=== PATIENT | female | born 1965 | race African-American/Black ===

== ENCOUNTER 2018-02-15 05:35 | Inpatient (IN) | payer MEDICARE, MEDICAID ==
[2018-02-15] VITALS (20 sets, daily range): BP systolic 91–118; BP diastolic 26–80
[~2018-02-15] VITALS: Ht 160 cm; Wt 216.4 kg
[2018-02-15] MEDS: Ipratropium 0.02% Inh Soln 2.5ml UD HHN SCH ×3 (06:15→07:03)
[2018-02-15] MEDS: Albuterol ud Inhalation HHN SCH ×6 (06:15→22:11)
[2018-02-15 06:17] LABS: HEMATOCRIT 54.9 % (37.0-47.0); HEMOGLOBIN 16.8 G/DL (12.0-16.0); MEAN CORPUSCULAR VOLUME 88 FL (80-99); PLATELET COUNT 166 K/UL (150-450); RED BLOOD COUNT 6.25 M/UL (4.20-5.40); RED CELL DISTRIBUTION WIDTH 16.2 % (11.6-14.8); WHITE BLOOD COUNT 15.9 K/UL (4.8-10.8)
--- NOTE | 2018-02-15 06:26 | Emergency Room Report ---
History of Present Illness General Chief Complaint: Dyspnea/Respdistress Source: Patient (José Escobar MD) Present Illness HPI 53-year-old female presents to ED for evaluation of shortness of breath. Patient brought in by EMS. Sister called 911 because patient appears short of breath this morning. Patient is morbidly obese. Patient is supposed to be on home oxygen but has not had any oxygen for some time now. All stenosis history of asthma. Denies fevers or chills. Denies chest pain. Per EMS O2 sats were low in the field and patient was placed on nonrebreather. No other aggravating relieving factors. Denies any other associated symptoms (José Escobar MD) HPI I assumed care of this patient from Dr. Escobar. This patient had presented from home with shortness of breath. She is morbidly obese. Apparently, she is on home oxygen and had been out of oxygen. Per the EMS report the patient was hypoxemic and a sleepy. Also, she currently has a history of asthma. There was no report of a recent illness such as fever cough or congestion. The patient had been put on BiPAP at the time of my evaluation. The patient was awake and responsive to my voice, although on BiPAP so unable to fully converse with me. (Pauline Shay DO) Allergies: Coded Allergies: No Known Allergies (Unverified , 11/23/14) Patient History Past Medical History: HTN, asthma Past Surgical History: none Pertinent Family History: none Social History: Denies: smoking, alcohol use, drug use Now: No Immunizations: UTD Reviewed Nursing Documentation: PMH: Agreed; PSxH: Agreed (José Escobar MD) Past Medical History: see triage record, asthma, other - Morbid obesity Reviewed Nursing Documentation: PMH: Agreed; PSxH: Agreed (Pauline Shay DO) Nursing Documentation-PMH Hx Hypertension: Yes Hx Asthma: Yes (José Escobar MD) Review of Systems All Other Systems: negative except mentioned in HPI (José Escobar MD) All Other Systems: limited (Pauline Shay DO) Physical Exam Vital Signs Date Time Temp Pulse Resp B/P (MAP) Pulse Ox O2 Delivery O2 Flow Rate FiO2 02/15/18 05:32 97.6 108 22 102/77 84 Room Air 97.5 Sp02 EP Interpretation: reviewed, normal General Appearance: no apparent distress, alert, GCS 15, non-toxic, obese Head: normocephalic Eyes: bilateral eye normal inspection, bilateral eye PERRL ENT: normal ENT inspection Neck: normal inspection Respiratory: decreased breath sounds Cardiovascular #1: regular rate, rhythm, no edema Gastrointestinal: normal bowel sounds, non tender, soft, non-distended, no guarding, no rebound Rectal: deferred Genitourinary: no CVA tenderness Musculoskeletal: normal inspection Neurologic: alert, oriented x3, responsive, motor strength/tone normal, sensory intact, speech normal Psychiatric: judgement/insight normal, memory normal, mood/affect normal, no suicidal/homicidal ideation Skin: normal inspection Lymphatic: normal inspection (José Escobar MD) Sp02 EP Interpretation: reviewed, normal General Appearance: no apparent distress, alert, GCS 15, non-toxic, obese Head: normocephalic, atraumatic Eyes: bilateral eye normal inspection, bilateral eye PERRL ENT: hearing grossly normal, normal pharynx, no angioedema, normal voice Neck: full range of motion, supple/symm/no masses Respiratory: chest non-tender, lungs clear, normal breath sounds, no respiratory distress, no retraction, no accessory muscle use, speaking full sentences Cardiovascular #1: regular rate, rhythm, no edema Gastrointestinal: normal bowel sounds, non tender, soft, non-distended, no guarding, no rebound Rectal: deferred Musculoskeletal: normal range of motion, non-tender Neurologic: alert, responsive, motor strength/tone normal, sensory intact, speech normal, grossly normal Psychiatric: memory normal, mood/affect normal, no suicidal/homicidal ideation Skin: normal color, no rash, warm/dry, well hydrated (Pauline Shay DO) Medical Decision Making Diagnostic Impression: Primary Impression: Morbid obesity Additional Impressions: Hypercapnia Dyspnea CHF (congestive heart failure) Elevated troponin ER Course This patient presented hypoxemic and hypercapnic. I suspect this patient has underlying obstructive sleep apnea. This untreated sleep apnea probably created a demand ischemia on this patient's heart and she developed congestive heart failure. I am unsure on the patient's history as there were no medical records available or family or other persons available to give me a medical history. The patient initially responded well to BiPAP. However, she became more sleepy. She was maintaining oxygen saturations in the high 90s, however, it was difficult given the patient's obesity to obtain an actual ABG. For concern of the patient's sleepiness and concerned that if she deteriorated, it would be a very difficult airway given her morbid obesity at over 500 pounds. I felt that an emergency airway would be disastrous in this situation and would possibly and in or severe morbidity. Therefore, the patient was intubated in the emergency department by anesthesia with Viral video airway equipment without complication.. Chest x-ray showed cardiomegaly and interstitial fluid. The patient's blood pressure had improved and so I did place an inch of nitro paste on the chest wall of this patient and also diuresed her. A PICC line was placed for central access as a precaution. This patient is critically ill. This patient required complex medical decision- making, aggressive intervention, extensive laboratory workup and monitoring. Critical care time: 40 minutes. Laboratory Tests Test 02/15/18 05:42 02/15/18 05:54 Arterial Blood pH 7.254 (7.350-7.450) Arterial Blood Partial Pressure CO2 77.1 mmHg (35.0-45.0) *H Arterial Blood Partial Pressure O2 39.4 mmHg (75.0-100.0) Arterial Blood HCO3 33.4 mmol/L (22.0-26.0) H Arterial Blood Oxygen Saturation 64.2 % (92.0-98.0) L Arterial Blood Base Excess 3.1 Renny Test Positive White Blood Count 15.9 K/UL (4.8-10.8) H Red Blood Count 6.25 M/UL (4.20-5.40) H Hemoglobin 16.8 G/DL (12.0-16.0) H Hematocrit 54.9 % (37.0-47.0) H Mean Corpuscular Volume 88 FL (80-99) Mean Corpuscular Hemoglobin 26.9 PG (27.0-31.0) L Mean Corpuscular Hemoglobin Concent 30.7 G/DL (32.0-36.0) L Red Cell Distribution Width 16.2 % (11.6-14.8) H Platelet Count 166 K/UL (150-450) Mean Platelet Volume 9.5 FL (6.5-10.1) Neutrophils (%) (Auto) % (45.0-75.0) Lymphocytes (%) (Auto) % (20.0-45.0) Monocytes (%) (Auto) % (1.0-10.0) Eosinophils (%) (Auto) % (0.0-3.0) Basophils (%) (Auto) % (0.0-2.0) Sodium Level 140 MMOL/L (136-145) Potassium Level 4.8 MMOL/L (3.5-5.1) Chloride Level 104 MMOL/L (98-107) Carbon Dioxide Level 30 MMOL/L (21-32) Anion Gap 6 mmol/L (5-15) Blood Urea Nitrogen 35 mg/dL (7-18) H Creatinine 1.3 MG/DL (0.55-1.30) Estimate Glomerular Filtration Rate 51.9 mL/min (>60) Glucose Level 136 MG/DL (74-106) H Lactic Acid Level 1.70 mmol/L (0.4-2.0) Calcium Level 9.5 MG/DL (8.5-10.1) Total Bilirubin 2.4 MG/DL (0.2-1.0) H Direct Bilirubin 0.7 MG/DL (0.0-0.3) H Aspartate Amino Transferase (AST) 19 U/L (15-37) Alanine Aminotransferase (ALT) 15 U/L (12-78) Alkaline Phosphatase 88 U/L (46-116) Total Creatine Kinase 78 U/L (26-308) Creatine Kinase MB 1.8 NG/ML (0.0-3.6) Creatine Kinase MB Relative Index 2.3 Troponin I 0.165 ng/mL (0.000-0.056) Pro-B-Type Natriuretic Peptide 8849 pg/mL (0-125) H Total Protein 8.0 G/DL (6.4-8.2) Albumin 3.1 G/DL (3.4-5.0) L Globulin 4.9 g/dL Albumin/Globulin Ratio 0.6 (1.0-2.7) L (Pauline Shay. ) EKG Diagnostic Results Rate: tachycardiac Rhythm: NSR ST Segments: no acute changes ASA given to the pt in ED: No (José Escobar MD) Rate: tachycardiac Rhythm: other - S.tachycardia ST Segments: no acute changes (Pauline Shay DO) Rhythm Strip Diag. Results EP Interpretation: yes Rhythm: NSR, no PVC's, no ectopy (José Escobar MD) EP Interpretation: yes Rate: 90's Rhythm: NSR, no PVC's, no ectopy (Pauline Shay DO) Last Vital Signs Date Time Temp Pulse Resp B/P (MAP) Pulse Ox O2 Delivery O2 Flow Rate FiO2 02/15/18 05:35 97.5 108 22 102/77 84 Room Air 97.5 (José Escobar MD) Disposition: ADMITTED INPATIENT Condition: Critical Referrals: NON PHYSICIAN (PCP) José Escobar MD Feb 15, 2018 06:26 Pauline Shay DO Feb 15, 2018 07:04
[2018-02-15] MEDS ORDERED: Lidocaine 1% Plain 30 ml INJ ONE (06:30)
[2018-02-15] MEDS ORDERED: Heparin 2000 units/Ns 1000ml INJ ONE (06:30)
[2018-02-15 06:32] LABS: ANION GAP 6 mmol/L (5-15); BLOOD UREA NITROGEN 35 mg/dL (7-18); CALCIUM 9.5 MG/DL (8.5-10.1); CARBON DIOXIDE 30 MMOL/L (21-32); CHLORIDE 104 MMOL/L (98-107); CREATININE 1.3 MG/DL (0.55-1.30); POTASSIUM 4.8 MMOL/L (3.5-5.1); SODIUM 140 MMOL/L (136-145)
[2018-02-15 06:51] LABS: ALANINE AMINOTRANSFERASE 15 U/L (12-78); ALBUMIN 3.1 G/DL (3.4-5.0); ALBUMIN/GLOBULIN RATIO 0.6 (1.0-2.7); ALKALINE PHOSPHATASE 88 U/L (46-116); ASPARTATE AMINO TRANSFERASE 19 U/L (15-37); BILIRUBIN,TOTAL 2.4 MG/DL (0.2-1.0); CKMB 1.8 NG/ML (0.0-3.6); CREATINE KINASE 78 U/L (26-308)
[2018-02-15 06:54] LABS: BILIRUBIN,DIRECT 0.7 MG/DL (0.0-0.3)
[2018-02-15] MEDS ORDERED: Nitroglycerin 2% oint pkt TOPIC ONE (07:15)
[2018-02-15] MEDS ORDERED: Propofol 200mg/20ml IV ONE ×2 (08:55→09:15)
[2018-02-15] MEDS: Dyna-Hex 2% Top Sol 2oz TOPIC SCH (09:40)
--- NOTE | 2018-02-15 10:38 | Diagnostic Imaging Report ---
Indication: Shortness of breath Technique: One view of the chest Comparison: none Findings: Body habitus limits evaluation. The heart is enlarged. There is bilateral pulmonary venous congestion. There may be small bilateral pleural effusions. Impression: Cardiomegaly with mild bilateral pulmonary venous congestion, likely small pleural effusions
--- NOTE | 2018-02-15 10:54 | Diagnostic Imaging Report ---
Indication: Status post intubation Technique: One view of the chest Comparison: 2 hours earlier Findings: Interim endotracheal intubation, endotracheal tube tip projected just above the mary. Increased infiltrate or edema is seen in the left upper lobe. There is increased hazy opacity right lung base, likely pleural fluid and/or consolidation. There is also some atelectasis at the right lung base Impression: Satisfactory endotracheal intubation Increased left upper lobe and right basilar opacities, over 2 hours
--- NOTE | 2018-02-15 11:05 | Diagnostic Imaging Report ---
Indications: Needs long-term IV access Technique: Procedure performed at bedside. Procedural timeout performed. Ultrasound confirms patent compressible right basilic vein. Total sterile technique, including sterile probe cover and sterile gel, sterile gloves, hand hygiene, hat, mask,, sterile gown, large sterile drape, and preparation with 2% chlorhexidine utilized. Local anesthesia with 1% lidocaine. Under real-time ultrasound guidance, puncture basilic vein using 21-gauge needle, passage 0.018 guidewire, exchange for 5 Ukrainian peel-away sheath. 5 Ukrainian Bard dual-lumen power PICC cut to 43 cm. It was inserted through the peel-away sheath. Peel-away sheath and guidewire removed. Catheter fixed to the skin. Both catheter ports aspirated and flushed. Patient tolerated procedure well, without immediate complication. Followup chest x-ray obtained, documents catheter tip position at the cavoatrial junction Impression: Successful bedside placement of right arm PICC under sonographic guidance, as described above.
[2018-02-15 11:29] LABS: APPEARANCE,URINE CLEAR; BILIRUBIN, URINE 1+ (NEGATIVE); COLOR,URINE BROWN; GLUCOSE, URINE (UA) NEGATIVE (NEGATIVE); KETONES,URINE 1+ (NEGATIVE); LEUKOCYTE ESTERASE ,URINE 1+ (NEGATIVE); NITRITE,URINE NEGATIVE (NEGATIVE); PH,URINE 5 (4.5-8.0); PROTEIN,URINE 2+ (NEGATIVE); UROBILINOGEN,URINE 8 MG/DL (0.0-1.0)
[2018-02-15] MEDS ORDERED: UNOBMED (12:05)
[2018-02-15] MEDS ORDERED: Morphine Sulfate 2mg/ml Inj IVP PRN (12:30)
[2018-02-15] MEDS ORDERED: Morphine Sulfate 4mg/ml Inj (IV USE ONLY) IVP PRN ×2 (12:30)
[2018-02-15] MEDS ORDERED: LORazepam Inj 2mg/ml 1ml IV PRN (14:00)
[2018-02-15] MEDS: cefTRIAXone 1gm/D5W 55ml IVPB SCH ×2 (14:00)
--- NOTE | 2018-02-15 14:13 | Cardiology Report ---
APPROVED REPORT EKG Measurement Heart [id number] Sinus tachycardia Nonspecific T wave abnormality Abnormal ECG
--- NOTE | 2018-02-15 14:30 | Cardiology Report ---
APPROVED REPORT EXAM: Two-dimensional and M-mode echocardiogram with Doppler and color Doppler. INDICATION Congestive Heart Failure M-Mode DIMENSIONS IVSd1.3 (0.7-1.1cm)Left Atrium (MM)4.1 (1.6-4.0cm) LVDd4.8 (3.5-5.6cm)Aortic Root3.1 (2.0-3.7cm) PWd1.2 (0.7-1.1cm)Aortic Cusp Exc.2.0 (1.5-2.0cm) IVSs2.4 cm LVDs3.0 (2.5-4.0cm) PWs1.9 cm Technically difficult study due to pts body habitus .poor endocardial and valvular definition Normal left ventricular chamber size, systolic function and wall motion as well visualized Left ventricular ejection fraction estimated to be 55-60 %. No evidence of left ventricular hypertrophy by . No evidence of pericardial effusion. All other cardiac chamber sizes are within normal limits. aortic vavle seem to open but was not well seen Thickened mitral valve leaflets with normal excursion. Mitral annulus and aortic root calcification. Pulmonic valve not well visualized. Normal tricuspid valve structure. IVC at size 2.2 without physiologic collapse, physiological collapse. suggestive of increased RA pressure. A color flow and spectral Doppler study was performed and revealed: No aortic regurgitation. Trace mitral regurgitation. Normal left ventricular diastolic function . Mild tricuspid regurgitation. Tricuspid systolic velocities suggests peak right ventricular systolic pressure of 42mmHg, consistent with mild pulmonary hypertension .
[2018-02-15] MEDS ORDERED: Vancomycin 1 GM in D5W 275 ML IVPB ONE (15:00)
--- NOTE | 2018-02-15 16:15 | Consultation ---
DATE OF CONSULTATION: 02/15/2018 PULMONARY CONSULTATION CONSULTING PHYSICIAN: Kurtis Vazquez M.D. REASON FOR ADMISSION: Respiratory failure. HISTORY OF PRESENT ILLNESS: This is a 53-year-old female, presents to the emergency room for shortness of breath. The patient apparently has been cared for well at home. Her sister called 911 due to respiratory issues. The patient is morbidly obese, poorly ambulatory. The patient denies any fevers or chills. Currently, she has been on BiPAP, still lethargic, but arousable. The patient was initially placed on non-rebreather. The patient noted to be sleepy and arterial blood gases appeared to be poor. The patient also with questionable history of congestive heart failure although unclear at this time. Care discussed and reviewed with the ER physician. The patient is seen in the emergency room. At present, the patient has multitude of medical problems. She has evidence of demand ischemia as well. Arterial blood gases are poor overall, but repeat gases have not yet been done. PAST MEDICAL HISTORY: Notable for hypertension, asthma, sleep apnea, likely obesity hypoventilation. MEDICATIONS: Reviewed. ALLERGIES: Reviewed. SOCIAL HISTORY: The patient lives at home. The patient is poorly ambulatory, unclear as to prior medical care. PHYSICAL EXAMINATION: GENERAL: A well-developed female, but morbidly obese, lethargic. VITAL SIGNS: Blood pressure 124/84, pulse 91, saturations 99 on 80% FiO2, and temperature 97.6. HEENT: Negative. The patient has a facial BiPAP in place NECK: Supple. Neck is obese. LUNGS: With reduced air entry overall. No rhonchi or wheezes. CARDIAC: S1 and S2. Somewhat distant. ABDOMEN: Soft, nontender, obese. EXTREMITIES: No cyanosis or clubbing. There is chronic edema. LABORATORY DATA: Otherwise reviewed. ABG 7.25/77/39/33/64. Chemistries noted, BUN 35, creatinine 1.3. Troponin 0.165. BNP 8849. Hematology notable for white cell count 15.9, hematocrit 54, and platelets 166. IMPRESSION: 1. Acute on chronic respiratory failure. 2. Severe hypoxemic respiratory failure. 3. Leukocytosis. 4. Possible sepsis. 5. Evidence of elevated hemoglobin and hematocrit. 6. Possible secondary polycythemia. 7. Evidence of acute renal failure. 8. Possible demand ischemia. 9. Hypertension. 10. Asthma per history. 11. Possible pulmonary edema. RECOMMENDATIONS: Supportive care. The patient at low threshold to intubate. BiPAP and monitor repeat ABG. Taper FiO2, diurese. Empiric antibiotics. Follow up troponins. Cardiology evaluation. Consider renal evaluation. Monitor laboratories and recommend further and discuss with family as to ongoing care and management. Kurtis Vazquez M.D. DR: ANGIE JOB#: [id number] CC: SANCHO
[2018-02-15] MEDS: Heparin 5000 units/ml inj SUBQ SCH (21:00)
[2018-02-16] VITALS (24 sets, daily range): BP systolic 92–113; BP diastolic 27–79
--- NOTE | 2018-02-16 00:30 | Consultation ---
DATE OF CONSULTATION: 02/15/2018 "NOTE: INCOMPLETE DICTATION." CONSULTING PHYSICIAN: Niko Seymour M.D. REQUESTING PHYSICIAN: Kurtis Vazquez M.D. REASON FOR CONSULT: Respiratory failure with elevated natriuretic peptide and troponin levels. HISTORY OF PRESENT ILLNESS: This is a 53-year-old -[place] female, who lives at home with her sister and requires total care. She presented to the emergency room with shortness of breath that had been progressing for several weeks, but most prominently over the past few days. She initially was placed on BiPAP, but failed to improve and required intubation and now is on mechanical ventilation. Historical data is obtained from her caregiver and sister at bedside. The patient's sister states that for the past several weeks, she has been increasingly becoming short of breath. At baseline, she is totally dependent on care and gets out of bed minimally. She has had cough for the past few days and her oxygen apparently ran out for the past week or so. The patient has not seen her regular doctor for over 6 months due to difficulty getting her out of the house as she is morbidly obese and does not walk. PAST MEDICAL HISTORY: Includes asthma, sleep apnea, hypertension, obesity, hypoventilation, type 2 diabetes mellitus. ALLERGIES: None. MEDICATIONS: Reviewed and reconciled. FAMILY HISTORY: Noncontributory. SOCIAL HISTORY: No history of smoking, alcohol, or substance abuse. REVIEW OF SYSTEMS: Not obtainable from the patient. Pertinent data from her sister is outlined above. PHYSICAL EXAMINATION: VITAL SIGNS: Blood pressure 97/61, pulse 81, respiratory rate 16, temperature 96. Orally intubated. Mechanically ventilated. Morbidly obese. SKIN: With stasis derm changes. LUNGS: Diminished breath sounds. BREASTS: Pendulous breasts. HEART: Regular rhythm and rate. Normal S1, S2. ABDOMEN: Obese and soft. EXTREMITIES: diffuse dependent edema with stasis derm changes of the lower extremities. DIAGNOSTIC DATA: EKG: Sinus tachycardia with NS T-wave abnormalities. Echocardiogram is a limited study that revealed normal ejection fraction and evidence of pulmonary hypertension with PA systolic pressure estimate of 42 mmHg. Chest x-ray reveals left upper lobe and right basilar opacity. Troponin 0.165 and increased to 0.286. ProNPA is 8849. CBC and Chem panel reviewed. IMPRESSION: 1. Acute on chronic respiratory failure. 2. Acute on chronic respiratory acidosis. 3. Acute NSTE myocardial infarction. 4. Secondary polycythemia. 5. Acute on chronic diastolic CHF. 6. Possible sepsis. 7. Morbid obesity. 8. Community acquired and aspiration PNA. 9. NIDDM RECOMMENDATIONS: Niko Seymour M.D. DR: MARVEL JOB#: [id number] CC: SANCHO
[2018-02-16] MEDS: Albuterol ud Inhalation HHN SCH ×6 (03:00→23:27)
[2018-02-16 05:34] LABS: EOSINOPHILS % (AUTO) 0.2 % (0.0-3.0); HEMATOCRIT 48.5 % (37.0-47.0); HEMOGLOBIN 15.2 G/DL (12.0-16.0); LYMPHOCYTES % (AUTO) 10.7 % (20.0-45.0); MEAN CORPUSCULAR VOLUME 85 FL (80-99); MONOCYTES % (AUTO) 7.7 % (1.0-10.0); NEUTROPHILS % (AUTO) 80.5 % (45.0-75.0); PLATELET COUNT 146 K/UL (150-450); RED BLOOD COUNT 5.72 M/UL (4.20-5.40); RED CELL DISTRIBUTION WIDTH 15.9 % (11.6-14.8); WHITE BLOOD COUNT 12.3 K/UL (4.8-10.8)
[2018-02-16 06:12] LABS: ANION GAP 5 mmol/L (5-15); BLOOD UREA NITROGEN 23 mg/dL (7-18); CALCIUM 8.8 MG/DL (8.5-10.1); CARBON DIOXIDE 33 MMOL/L (21-32); CHLORIDE 107 MMOL/L (98-107); CREATININE 0.9 MG/DL (0.55-1.30); POTASSIUM 3.8 MMOL/L (3.5-5.1); SODIUM 145 MMOL/L (136-145)
[2018-02-16 06:17] LABS: CKMB 1.4 NG/ML (0.0-3.6)
[2018-02-16] MEDS: Pantoprazole Inj IVP SCH (08:23)
[2018-02-16] MEDS: Heparin 5000 units/ml inj SUBQ SCH ×2 (08:38→20:47)
[2018-02-16] MEDS: Milk of Magnesia 30ml Ud ORAL PRN (08:48)
--- NOTE | 2018-02-16 09:08 | Diagnostic Imaging Report ---
Indication: Dyspnea Technique: One view of the chest Comparison: 02/15/2018 Findings: Body habitus limits evaluation. Interim nasogastric intubation, tube tip position difficult to assess due to body habitus, probably satisfactory. Satisfactory stable position of endotracheal tube. Stable satisfactory position right arm PICC. Persistent right-sided pleural effusion. The heart is enlarged. Impression: Probably satisfactory interim nasogastric intubation Persistent right-sided pleural effusion Other stable findings as described
[2018-02-16] MEDS: cefTRIAXone 1gm/D5W 55ml IVPB SCH ×2 (13:24)
[2018-02-16] MEDS: Vancomycin 1gm/D5W 275ml IVPB SCH ×4 (14:40→22:16)
[2018-02-16] MEDS: Cefepime HCl 2 GM in D5W 110 ML IVPB SCH (15:58)
--- NOTE | 2018-02-16 17:00 | Consultation ---
DATE OF CONSULTATION: 02/16/2018 INFECTIOUS DISEASES CONSULTATION CONSULTING PHYSICIAN: Jayant Roque M.D. REFERRING PHYSICIAN: Kurtis Vazquez M.D. REASON FOR CONSULTATION: Sepsis. HISTORY OF PRESENTING ILLNESS: This is a 53-year-old lady with history of obesity, hypertension, asthma, and sleep apnea, who came in because she was lethargic. She was placed on a non-rebreather mask and now, she has been intubated and Infectious Diseases consultation has been obtained for positive blood cultures. PAST MEDICAL HISTORY: 1. History of hypertension. 2. Asthma. 3. Sleep apnea. MEDICATIONS: As an inpatient, the patient is on IV vancomycin, Lasix, Protonix, subcutaneous heparin, milk of magnesia, chlorhexidine, albuterol, ceftriaxone, lorazepam, Tylenol, and morphine. ALLERGIES: No known drug allergies. SOCIAL HISTORY: Unknown. FAMILY HISTORY: Unknown. REVIEW OF SYSTEMS: Unable to obtain currently. PHYSICAL EXAMINATION: VITAL SIGNS: Temperature of 98.7 degrees, T-max of 99.1, pulse of 73, respiratory rate of 12, blood pressure 107/63, and O2 saturation of 94%. HEENT: Pupils equally reactive to light and accommodation. The patient is intubated. NECK: Supple. No adenopathy. No JVD. CARDIOVASCULAR: Regular rate and rhythm. No murmurs. LUNGS: Clear to auscultation bilaterally. No crackles. No wheezes. ABDOMEN: Soft and nontender. No organomegaly. EXTREMITIES: No cyanosis. No clubbing. Edema noted bilaterally with hyperpigmentation of both legs and some erythema. Right arm PICC line noted. LABORATORY AND DIAGNOSTIC DATA: White count of 15.9 yesterday, white count of 12.3 today, hemoglobin 15.2, hematocrit 48.5, MCV 85, and platelet count of 146,000 with neutrophils of 80%. Sodium 145, potassium 3.8, chloride 107, bicarb 33, BUN 23, creatinine 0.9, glucose 105, and calcium 8.8. CK-MB 1.4 and on 02/15/2018, AST was 19, ALT was 15, and alkaline phosphatase 88. Total bilirubin 2.4. Direct bilirubin of 0.7. Troponin of 0.15. UA showing 5 to 10 white cells. Blood culture showing gram-positive cocci in clusters. Chest x-ray showing resistant right-sided pleural effusion. A 2D echocardiogram showing thickened mitral valve leaflets, trace mitral regurgitation, and mild tricuspid regurgitation. ASSESSMENT: This is a 53-year-old lady with history of hypertension and asthma, who comes in with lethargicness and is found to have, 1. Gram-positive sepsis. 2. We would like to rule out pneumonia as a possibility. 3. Respiratory failure. 4. Leukocytosis is improving. PLAN: 1. Continue IV vancomycin. 2. Discontinue ceftriaxone. 3. We will start the patient on cefepime. 4. We will order a sputum for Gram stain and culture. 5. We will follow up cultures and adjust antibiotics accordingly. I would like to thank, Dr. Vazquez for this consultation. Jayant Roque M.D. DR: GILMAR JOB#: [id number] CC: Kurtis Vazquez M.D.; Fax#: [phone]
[2018-02-16] MEDS: Dyna-Hex 2% Top Sol 2oz TOPIC SCH (20:45)
--- NOTE | 2018-02-16 22:55 | Pulmonolgy Critical Care Note ---
Critical Care - Asmt/Plan Assessment/Plan: PULMONARY PROGRESS NOTE REASON FOR ADMISSION: Respiratory failure. HISTORY OF PRESENT ILLNESS: This is a 53-year-old female, presents to the emergency room for shortness of breath. The patient apparently has been cared for well at home. Her sister called 911 due to respiratory issues. The patient is morbidly obese, poorly ambulatory. The patient denies any fevers or chills. Currently, she has been on BiPAP, still lethargic, but arousable. The patient was initially placed on non-rebreather. The patient noted to be sleepy and arterial blood gases appeared to be poor. The patient also with questionable history of congestive heart failure although unclear at this time. Care discussed and reviewed with the ER physician. The patient is seen in the emergency room. At present, the patient has multitude of medical problems. She has evidence of demand ischemia as well. Arterial blood gases are poor overall, but repeat gases have not yet been done. Stable overnight, for weaning trails PAST MEDICAL HISTORY: Notable for hypertension, asthma, sleep apnea, likely obesity hypoventilation. MEDICATIONS: Reviewed. ALLERGIES: Reviewed. SOCIAL HISTORY: The patient lives at home. The patient is poorly ambulatory, unclear as to prior medical care. PHYSICAL EXAMINATION: GENERAL: A well-developed female, but morbidly obese, lethargic. VITAL SIGNS: Blood pressure , pulse 91, saturations 99 on 80% FiO2, and temperature 97.6. HEENT: Negative. The patient has a facial BiPAP in place NECK: Supple. Neck is obese. LUNGS: With reduced air entry overall. No rhonchi or wheezes. CARDIAC: S1 and S2. Somewhat distant. ABDOMEN: Soft, nontender, obese. EXTREMITIES: No cyanosis or clubbing. There is chronic edema. LABORATORY DATA: Otherwise reviewed. ABG 7.25/77/39/33/64. Chemistries noted, BUN 35, creatinine 1.3. Troponin 0.165. BNP 8849. Hematology notable for white cell count 15.9, hematocrit 54, and platelets 166. IMPRESSION: 1. Acute on chronic respiratory failure. 2. Severe hypoxemic respiratory failure. 3. Leukocytosis. 4. Possible sepsis. 5. Evidence of elevated hemoglobin and hematocrit. 6. Possible secondary polycythemia. 7. Evidence of acute renal failure. 8. Possible demand ischemia. 9. Hypertension. 10. Asthma per history. 11. Possible pulmonary edema. RECOMMENDATIONS: Supportive care. Wean as tolerated. Taper FiO2, diurese. Empiric antibiotics. Follow up troponins. Cardiology evaluation. Consider renal evaluation. Monitor laboratories and recommend further and discuss with family as to ongoing care and management. Critical Care - Objective Last 24 Hour Vital Signs Date Time Temp Pulse Resp B/P (MAP) Pulse Ox O2 Delivery O2 Flow Rate FiO2 02/16/18 22:00 88 15 92/58 (69) 97 02/16/18 21:18 83 14 40 02/16/18 21:00 84 15 110/64 (79) 96 02/16/18 20:00 40 02/16/18 20:00 89 02/16/18 20:00 Mechanical Ventilator 02/16/18 20:00 98.9 80 16 103/52 (69) 96 98.9 02/16/18 19:03 87 12 96 Mechanical Ventilator 40 02/16/18 19:02 87 12 40 02/16/18 19:00 86 14 111/56 (74) 97 02/16/18 18:50 75 12 98 Mechanical Ventilator 40 02/16/18 18:00 80 14 102/62 (75) 96 02/16/18 17:00 77 14 104/42 (62) 97 02/16/18 17:00 77 12 40 02/16/18 16:00 83 02/16/18 16:00 Mechanical Ventilator 02/16/18 16:00 98.5 75 14 104/45 (64) 98 98.5 02/16/18 16:00 40 02/16/18 15:07 80 12 96 Mechanical Ventilator 40 02/16/18 15:01 85 13 40 02/16/18 15:01 82 13 96 Mechanical Ventilator 40 02/16/18 15:00 85 14 108/59 (75) 97 02/16/18 14:00 73 12 107/63 (78) 94 18 13:20 76 14 40 02/16/18 13:00 80 12 97/79 (85) 94 02/16/18 12:00 Mechanical Ventilator 02/16/18 12:00 75 02/16/18 12:00 71 12 111/64 (80) 93 02/16/18 11:00 73 12 108/60 (76) 93 02/16/18 10:51 80 12 95 Mechanical Ventilator 40 02/16/18 10:45 40 18 10:44 80 12 40 18 10:44 73 12 96 Mechanical Ventilator 40 18 10:00 80 16 104/51 (68) 97 18 09:18 98.7 18 09:00 88 16 106/48 (67) 98 02/16/18 08:55 76 18 40 02/16/18 08:48 98.7 02/16/18 08:00 40 02/16/18 08:00 98.6 82 16 112/71 (85) 98 98.6 02/16/18 08:00 91 02/16/18 08:00 Mechanical Ventilator 02/16/18 07:31 72 16 96 Mechanical Ventilator 40 02/16/18 07:24 72 16 96 Mechanical Ventilator 02/16/18 07:24 72 16 40 02/16/18 07:00 78 14 112/50 (70) 98 02/16/18 06:00 65 14 113/48 (69) 98 02/16/18 05:27 78 16 40 02/16/18 05:00 74 17 105/72 (83) 98 02/16/18 04:00 40 02/16/18 04:00 98.7 81 17 106/63 (77) 98 98.7 02/16/18 04:00 82 02/16/18 04:00 Mechanical Ventilator 02/16/18 03:39 73 16 98 Mechanical Ventilator 40 02/16/18 03:29 71 16 40 02/16/18 03:29 71 16 96 Mechanical Ventilator 40 02/16/18 03:00 75 14 102/76 (85) 99 02/16/18 02:00 85 16 93/56 (68) 95 02/16/18 01:27 84 16 40 02/16/18 01:00 85 20 98/27 (50) 99 02/16/18 00:00 Mechanical Ventilator 02/16/18 00:00 99.1 80 14 103/27 (52) 99 99.1 02/15/18 23:00 67 16 103/31 (55) 99 Micro: Microbiology Date/Time Source Procedure Growth Status 02/15/18 05:54 Blood Blood Culture - Preliminary Resulted 02/15/18 05:50 Blood Blood Culture - Preliminary Resulted Critical Care - Subjective ROS Limited/Unobtainable: Yes Condition: improving FI02: 40 Vent Support Breath Rate: 12 Vent Support Mode: AC Vent Tidal Volume: 550 Sputum Amount: Small PEEP: 0.0 PIP: 30 I&O: Intake and Output 02/15/18 02/16/18 19:00 07:00 Intake Total 200.015 ml 20.003 ml Output Total 440 ml 300 ml Balance -239.985 ml -279.997 ml IV Total 200.015 ml 20.003 ml Output Urine Total 440 ml 300 ml ET-Tube: 7.0 ET Position: 24 Niko Osman MD Feb 16, 2018 22:55
--- NOTE | 2018-02-16 23:30 | Progress Note ---
DATE: 02/16/2018 SUBJECTIVE: The patient remains in the intensive care unit. She is awake and alert. Orally intubated. Mechanically ventilated. OBJECTIVE: VITAL: Blood pressure 103/52, pulse 89, and respirations 16. Afebrile. Obese. LUNGS: Bilateral breath sounds. HEART: Regular rhythm and rate. Normal S1, S2. ABDOMEN: Soft. EXTREMITIES: Dependent edema. LABORATORY DATA: Troponin down to 0.15. BUN 23 and creatinine 0.9. Pro-natriuretic peptide 1697. IMPRESSION: 1. Respiratory failure. 2. Obesity. 3. Hypoventilation. 4. Community-acquired pneumonia. 5. Acute on chronic diastolic congestive heart failure. 6. Respiratory failure. 7. Secondary polycythemia. PLAN: 1. Antimicrobials. 2. Ventilator support. 3. Weaning as able. 4. Diuresis. 5. Replace electrolytes. 6. DVT and stress ulcer prophylaxis. Niko Seymour M.D. DR: FRANCESCO JOB#: [id number] CC:
[2018-02-17] VITALS (24 sets, daily range): BP systolic 78–114; BP diastolic 46–73
[2018-02-17] MEDS: Albuterol ud Inhalation HHN SCH ×6 (03:31→23:25)
[2018-02-17] MEDS: Vancomycin 1gm/D5W 275ml IVPB SCH ×4 (05:38→14:00)
[2018-02-17 06:04] LABS: BASOPHILS % (AUTO) 0.9 % (0.0-2.0); EOSINOPHILS % (AUTO) 1.9 % (0.0-3.0); HEMATOCRIT 42.7 % (37.0-47.0); HEMOGLOBIN 13.2 G/DL (12.0-16.0); LYMPHOCYTES % (AUTO) 15.2 % (20.0-45.0); MEAN CORPUSCULAR VOLUME 85 FL (80-99); MONOCYTES % (AUTO) 7.8 % (1.0-10.0); NEUTROPHILS % (AUTO) 74.2 % (45.0-75.0); PLATELET COUNT 111 K/UL (150-450); RED BLOOD COUNT 5.04 M/UL (4.20-5.40); RED CELL DISTRIBUTION WIDTH 16.6 % (11.6-14.8)
[2018-02-17 06:19] LABS: ALANINE AMINOTRANSFERASE 15 U/L (12-78); ALBUMIN 2.4 G/DL (3.4-5.0); ALBUMIN/GLOBULIN RATIO 0.6 (1.0-2.7); ALKALINE PHOSPHATASE 61 U/L (46-116); ANION GAP 4 mmol/L (5-15); ASPARTATE AMINO TRANSFERASE 18 U/L (15-37); BILIRUBIN,TOTAL 3.6 MG/DL (0.2-1.0); BLOOD UREA NITROGEN 15 mg/dL (7-18); CALCIUM 8.4 MG/DL (8.5-10.1); CARBON DIOXIDE 35 MMOL/L (21-32); CHLORIDE 107 MMOL/L (98-107); CREATININE 0.8 MG/DL (0.55-1.30); POTASSIUM 3.5 MMOL/L (3.5-5.1); SODIUM 146 MMOL/L (136-145)
[2018-02-17 07:03] LABS: BILIRUBIN,DIRECT 0.8 MG/DL (0.0-0.3)
--- NOTE | 2018-02-17 07:58 | General Progress Note ---
Assessment/Plan Problem List: (1) Pneumonia ICD Codes: J18.9 - Pneumonia, unspecified organism SNOMED: 774602711 (2) Pleural effusion ICD Codes: J90 - Pleural effusion, not elsewhere classified SNOMED: 81927615 (3) Morbid obesity ICD Codes: E66.01 - Morbid (severe) obesity due to excess calories SNOMED: 316019064 (4) Leg edema ICD Codes: R60.0 - Localized edema SNOMED: 367500754 (5) Unable to ambulate ICD Codes: R26.2 - Difficulty in walking, not elsewhere classified SNOMED: 870773755 (6) Morbid obesity ICD Codes: E66.01 - Morbid (severe) obesity due to excess calories SNOMED: 515847857 (7) Hypercapnia ICD Codes: R06.89 - Other abnormalities of breathing SNOMED: 58561583 (8) Elevated troponin ICD Codes: R74.8 - Abnormal levels of other serum enzymes SNOMED: 975238047, 929975333, 660171845 (9) Dyspnea ICD Codes: R06.00 - Dyspnea, unspecified SNOMED: 908879881 (10) CHF (congestive heart failure) ICD Codes: I50.9 - Heart failure, unspecified SNOMED: 58528555 (11) Bacteremia ICD Codes: R78.81 - Bacteremia SNOMED: 8620924 Status: stable, progressing Assessment/Plan vent support weaning iv abx diuresis monitor labs and cxr skin/wound care Subjective ROS Limited/Unobtainable: No Constitutional: Reports: no symptoms HEENT: Reports: no symptoms Cardiovascular: Reports: no symptoms Respiratory: Reports: no symptoms Gastrointestinal/Abdominal: Reports: no symptoms Genitourinary: Reports: no symptoms Neurologic/Psychiatric: Reports: no symptoms Endocrine: Reports: no symptoms Hematologic/Lymphatic: Reports: no symptoms Allergies: Coded Allergies: No Known Allergies (Unverified , 11/23/14) All Systems: reviewed and negative except above Subjective remains on the vent. awake and alert. no complaints. hoping to get extubated today. Objective Last 24 Hour Vital Signs Date Time Temp Pulse Resp B/P (MAP) Pulse Ox O2 Delivery O2 Flow Rate FiO2 02/17/18 07:46 83 13 98 Mechanical Ventilator 40 02/17/18 07:44 84 13 40 02/17/18 07:00 81 14 100/55 (70) 99 02/17/18 06:00 83 12 99/61 (74) 99 02/17/18 05:19 83 13 40 02/17/18 05:00 86 14 100/53 (69) 99 02/17/18 04:00 40 02/17/18 04:00 76 02/17/18 04:00 98.6 76 12 97/49 (65) 99 98.6 02/17/18 04:00 Mechanical Ventilator 02/17/18 03:39 91 12 100 Mechanical Ventilator 40 02/17/18 03:36 76 12 98 Mechanical Ventilator 40 02/17/18 03:27 76 13 40 02/17/18 03:00 74 12 98/52 (67) 99 02/17/18 02:00 72 12 100/51 (67) 96 02/17/18 01:39 77 13 40 02/17/18 01:00 76 18 106/53 (70) 99 02/17/18 00:00 98.1 85 16 103/66 (78) 99 98.1 02/17/18 00:00 83 02/17/18 00:00 40 02/17/18 00:00 Mechanical Ventilator 02/16/18 23:35 94 12 96 Mechanical Ventilator 40 02/16/18 23:28 89 12 40 02/16/18 23:28 89 12 98 Mechanical Ventilator 40 02/16/18 23:00 84 14 100/42 (61) 97 18 22:00 88 15 92/58 (69) 97 18 21:18 83 14 40 18 21:00 84 15 110/64 (79) 96 18 20:00 40 18 20:00 89 1918 20:00 Mechanical Ventilator 02/16/18 20:00 98.9 80 16 103/52 (69) 96 98.9 18 19:03 87 12 96 Mechanical Ventilator 40 18 19:02 87 12 40 02/16/18 19:00 86 14 111/56 (74) 97 19/18 18:50 75 12 98 Mechanical Ventilator 40 18 18:00 80 14 102/62 (75) 96 18 17:00 77 14 104/42 (62) 97 19/18 17:00 77 12 40 9/19/18 16:00 83 02/16/18 16:00 Mechanical Ventilator 02/16/18 16:00 98.5 75 14 104/45 (64) 98 98.5 02/16/18 16:00 40 02/16/18 15:07 80 12 96 Mechanical Ventilator 40 02/16/18 15:01 85 13 40 02/16/18 15:01 82 13 96 Mechanical Ventilator 40 02/16/18 15:00 85 14 108/59 (75) 97 02/16/18 14:00 73 12 107/63 (78) 94 02/16/18 13:20 76 14 40 02/16/18 13:00 80 12 97/79 (85) 94 02/16/18 12:00 Mechanical Ventilator 02/16/18 12:00 75 02/16/18 12:00 71 12 111/64 (80) 93 02/16/18 11:00 73 12 108/60 (76) 93 02/16/18 10:51 80 12 95 Mechanical Ventilator 40 02/16/18 10:45 40 02/16/18 10:44 80 12 40 02/16/18 10:44 73 12 96 Mechanical Ventilator 40 02/16/18 10:00 80 16 104/51 (68) 97 02/16/18 09:18 98.7 02/16/18 09:00 88 16 106/48 (67) 98 02/16/18 08:55 76 18 40 02/16/18 08:48 98.7 02/16/18 08:00 40 02/16/18 08:00 98.6 82 16 112/71 (85) 98 98.6 02/16/18 08:00 91 02/16/18 08:00 Mechanical Ventilator Intake and Output 02/16/18 02/17/18 19:00 07:00 Intake Total 582.416 ml Output Total 1565 ml 340 ml Balance -982.584 ml -340 ml Intake Free Water 50 ml IV Total 532.416 ml Output Urine Total 1565 ml 340 ml # Bowel Movements 2 Laboratory Tests 02/16/18 12:00: Troponin I 0.154H 02/16/18 18:02: Troponin I 0.150H 02/17/18 04:00: White Blood Count 10.0, Red Blood Count 5.04, Hemoglobin 13.2, Hematocrit 42.7, Mean Corpuscular Volume 85, Mean Corpuscular Hemoglobin 26.3L, Mean Corpuscular Hemoglobin Concent 31.0L, Red Cell Distribution Width 16.6H, Platelet Count 111L , Mean Platelet Volume 10.5H, Neutrophils (%) (Auto) 74.2, Lymphocytes (%) (Auto ) 15.2L, Monocytes (%) (Auto) 7.8, Eosinophils (%) (Auto) 1.9, Basophils (%) ( Auto) 0.9, Sodium Level 146H, Potassium Level 3.5, Chloride Level 107, Carbon Dioxide Level 35H, Anion Gap 4L, Blood Urea Nitrogen 15, Creatinine 0.8, Estimat Glomerular Filtration Rate > 60, Glucose Level 81, Calcium Level 8.4L, Magnesium Level 1.9, Total Bilirubin 3.6H, Direct Bilirubin 0.8H, Aspartate Amino Transf (AST/SGOT) 18, Alanine Aminotransferase (ALT/SGPT) 15, Alkaline Phosphatase 61, Total Protein 6.1L, Albumin 2.4L, Globulin 3.7, Albumin/ Globulin Ratio 0.6L Height (Feet): 5 Height (Inches): 3.00 Weight (Pounds): 490 General Appearance: WD/WN, alert Neck: supple Cardiovascular: regular rhythm Respiratory/Chest: lungs clear Abdomen: normal bowel sounds, non tender, soft, no organomegaly Edema: moderate edema 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
--- NOTE | 2018-02-17 08:42 | Critical Care Progress Note ---
Assessment/Plan Assessment/Plan 1. Acute on chronic respiratory failure. 2. Severe hypoxemic respiratory failure. 3. Leukocytosis. 4. Possible sepsis. 5. Evidence of elevated hemoglobin and hematocrit. 6. Possible secondary polycythemia. 7. Evidence of acute renal failure. 8. Possible demand ischemia. 9. Hypertension. 10. Asthma per history. 11. Possible pulmonary edema. 12. Bacteremia PLAN keep negative watch lytes wean hope to extubate once off vent, nighttime BIPAP may need trilogy supportive care ID noted cards noted will likely need SNF medications/laboratory data/nursing notes/ICU care reviewed in detail note reviewed and edited care discussed with RN and RT ICU time spent 42 minutes Critical Care - Subjective Interval Events: awake alert on AC no distress Condition: critical EKG Rhythm: Sinus Rhythm I&O: Intake and Output 02/16/18 02/17/18 19:00 07:00 Intake Total 582.416 ml Output Total 1565 ml 340 ml Balance -982.584 ml -340 ml Intake Free Water 50 ml IV Total 532.416 ml Output Urine Total 1565 ml 340 ml # Bowel Movements 2 Critical Care - Objective ET-Tube: 7.0 ET Position: 24 Last 24 Hour Vital Signs Date Time Temp Pulse Resp B/P (MAP) Pulse Ox O2 Delivery O2 Flow Rate FiO2 02/17/18 07:46 83 13 98 Mechanical Ventilator 40 02/17/18 07:44 84 13 40 02/17/18 07:00 81 14 100/55 (70) 99 02/17/18 06:00 83 12 99/61 (74) 99 02/17/18 05:19 83 13 40 02/17/18 05:00 86 14 100/53 (69) 99 02/17/18 04:00 40 02/17/18 04:00 76 02/17/18 04:00 98.6 76 12 97/49 (65) 99 98.6 02/17/18 04:00 Mechanical Ventilator 02/17/18 03:39 91 12 100 Mechanical Ventilator 40 02/17/18 03:36 76 12 98 Mechanical Ventilator 40 02/17/18 03:27 76 13 40 02/17/18 03:00 74 12 98/52 (67) 99 02/17/18 02:00 72 12 100/51 (67) 96 02/17/18 01:39 77 13 40 02/17/18 01:00 76 18 106/53 (70) 99 18 00:00 98.1 85 16 103/66 (78) 99 98.1 02/17/18 00:00 83 18 00:00 40 02/17/18 00:00 Mechanical Ventilator 02/16/18 23:35 94 12 96 Mechanical Ventilator 40 02/16/18 23:28 89 12 40 02/16/18 23:28 89 12 98 Mechanical Ventilator 40 02/16/18 23:00 84 14 100/42 (61) 97 18 22:00 88 15 92/58 (69) 97 18 21:18 83 14 40 18 21:00 84 15 110/64 (79) 96 18 20:00 40 02/16/18 20:00 89 02/16/18 20:00 Mechanical Ventilator 02/16/18 20:00 98.9 80 16 103/52 (69) 96 98.9 02/16/18 19:03 87 12 96 Mechanical Ventilator 40 02/16/18 19:02 87 12 40 02/16/18 19:00 86 14 111/56 (74) 97 18 18:50 75 12 98 Mechanical Ventilator 40 02/16/18 18:00 80 14 102/62 (75) 96 02/16/18 17:00 77 14 104/42 (62) 97 02/16/18 17:00 77 12 40 02/16/18 16:00 83 02/16/18 16:00 Mechanical Ventilator 02/16/18 16:00 98.5 75 14 104/45 (64) 98 98.5 02/16/18 16:00 40 18 15:07 80 12 96 Mechanical Ventilator 40 02/16/18 15:01 85 13 40 18 15:01 82 13 96 Mechanical Ventilator 40 02/16/18 15:00 85 14 108/59 (75) 97 18 14:00 73 12 107/63 (78) 94 18 13:20 76 14 40 18 13:00 80 12 97/79 (85) 94 18 12:00 Mechanical Ventilator 02/16/18 12:00 75 02/16/18 12:00 71 12 111/64 (80) 93 9/19/18 11:00 73 12 108/60 (76) 93 02/16/18 10:51 80 12 95 Mechanical Ventilator 40 02/16/18 10:45 40 02/16/18 10:44 80 12 40 02/16/18 10:44 73 12 96 Mechanical Ventilator 40 02/16/18 10:00 80 16 104/51 (68) 97 02/16/18 09:18 98.7 02/16/18 09:00 88 16 106/48 (67) 98 02/16/18 08:55 76 18 40 02/16/18 08:48 98.7 Labs: Laboratory Tests Test 02/16/18 12:00 02/16/18 18:02 02/17/18 04:00 Troponin I 0.154 ng/mL (0.000-0.056) 0.150 ng/mL (0.000-0.056) White Blood Count 10.0 K/UL (4.8-10.8) Red Blood Count 5.04 M/UL (4.20-5.40) Hemoglobin 13.2 G/DL (12.0-16.0) Hematocrit 42.7 % (37.0-47.0) Mean Corpuscular Volume 85 FL (80-99) Mean Corpuscular Hemoglobin 26.3 PG (27.0-31.0) L Mean Corpuscular Hemoglobin Concent 31.0 G/DL (32.0-36.0) L Red Cell Distribution Width 16.6 % (11.6-14.8) H Platelet Count 111 K/UL (150-450) L Mean Platelet Volume 10.5 FL (6.5-10.1) H Neutrophils (%) (Auto) 74.2 % (45.0-75.0) Lymphocytes (%) (Auto) 15.2 % (20.0-45.0) L Monocytes (%) (Auto) 7.8 % (1.0-10.0) Eosinophils (%) (Auto) 1.9 % (0.0-3.0) Basophils (%) (Auto) 0.9 % (0.0-2.0) Sodium Level 146 MMOL/L (136-145) H Potassium Level 3.5 MMOL/L (3.5-5.1) Chloride Level 107 MMOL/L (98-107) Carbon Dioxide Level 35 MMOL/L (21-32) H Anion Gap 4 mmol/L (5-15) L Blood Urea Nitrogen 15 mg/dL (7-18) Creatinine 0.8 MG/DL (0.55-1.30) Estimat Glomerular Filtration Rate > 60 mL/min (>60) Glucose Level 81 MG/DL (74-106) Calcium Level 8.4 MG/DL (8.5-10.1) L Magnesium Level 1.9 MG/DL (1.8-2.4) Total Bilirubin 3.6 MG/DL (0.2-1.0) H Direct Bilirubin 0.8 MG/DL (0.0-0.3) H Aspartate Amino Transf (AST/SGOT) 18 U/L (15-37) Alanine Aminotransferase (ALT/SGPT) 15 U/L (12-78) Alkaline Phosphatase 61 U/L (46-116) Total Protein 6.1 G/DL (6.4-8.2) L Albumin 2.4 G/DL (3.4-5.0) L Globulin 3.7 g/dL Albumin/Globulin Ratio 0.6 (1.0-2.7) L Objective: WDWN orall intubated morbidly obese reduced breath sounds bilaterally without rhonchi or wheeze [id number] without MRG NABS nontender no distention; obese no CC mild edema nonfocal but weak Micro: Microbiology Date/Time Source Procedure Growth Status 02/15/18 05:54 Blood Blood Culture - Preliminary Staphylococcus Sp Coag Neg Resulted 02/15/18 05:50 Blood Blood Culture - Preliminary Staphylococcus Sp Coag Neg Resulted Kurtis Vazquez MD Feb 17, 2018 08:42
--- NOTE | 2018-02-17 08:45 | History and Physical Report ---
DATE OF ADMISSION: 02/15/2018 CHIEF COMPLAINT: Respiratory failure, morbid obesity, and CHF. HISTORY OF PRESENT ILLNESS: The patient is a 53-year-old female. She has a history of morbid obesity and she was transferred by paramedics with complaints of shortness of breath. On evaluation in the emergency room, she was placed on BiPAP. Her blood gas there showed a pH of 7.25 with a pCO2 of 77. The patient eventually required oral intubation, is now admitted to intensive care unit. She is currently awake and responds to commands and answers questions with gestures. PAST MEDICAL HISTORY: Significant for history of morbid obesity, hypertension, and history of sleep apnea. PAST SURGICAL HISTORY: None. CURRENT MEDICATIONS: Reconciled and reviewed. ALLERGIES: None. FAMILY HISTORY: Unknown. SOCIAL HISTORY: There is no known history of tobacco, ethanol, or drugs. REVIEW OF SYSTEMS: Unobtainable as the patient is currently intubated. PHYSICAL EXAMINATION: VITAL SIGNS: Temperature 98, pulse 74, respirations 14, and blood pressure 100/42. GENERAL: The patient is a well-developed, no apparent distress. She is orally intubated. NECK: Supple. HEART: Regular rate and rhythm. LUNGS: Clear anteriorly. ABDOMEN: Soft, nontender, and nondistended. Obese. EXTREMITIES: Without clubbing or cyanosis. There is 2 to 3+ edema. There were hyperpigmentation changes on the shins. LABORATORY AND DIAGNOSTIC DATA: Laboratories, initial ABG showed pH of 7.25, pCO2 of 77, pO2 of 39, bicarb of 33, and O2 saturation of 64%. Hemoglobin was 16 and hematocrit 54. Sodium 140, potassium 4.8, chloride 104, bicarb 30, BUN 35, and creatinine 1.3. Troponin was 0.165. Total bilirubin of 2.4, the direct of 0.7. Natriuretic peptide level was 8000. Chest x-ray showed cardiomegaly with mild bilateral pulmonary venous congestion. ASSESSMENT: This is a morbidly obese, elderly female admitted with complaints of shortness of breath secondary to CHF exacerbation, cannot rule out pneumonia. She does have an elevated troponin possibly secondary to her hypoxemia. She has a history of asthma. PLAN: Ventilatory support. Respiratory treatments. Diuresis. Empiric antibiotic therapy for possible pneumonia. DVT and stress ulcer prophylaxis. The patient's status is currently critical and guarded. Michael Baez M.D. DR: ARYAN JOB#: [id number] CC:
[2018-02-17] MEDS: Cefepime HCl 2 GM in D5W 110 ML IVPB SCH ×2 (09:55→20:42)
[2018-02-17] MEDS: Pantoprazole Inj IVP SCH (09:55)
[2018-02-17] MEDS: Heparin 5000 units/ml inj SUBQ SCH ×2 (09:56→20:43)
--- NOTE | 2018-02-17 14:24 | Infectious Diseases Prog Note ---
Assessment/Plan Assessment/Plan A; Sepsis Hypercapnic respiratory failure Asthma/COPD morbid obesity PEBBLES Diastolic CHF Positive blood culture, likely contamination P; Continue Cefepime Discontinue Vancomycin Will f/u sputum culture Subjective ROS Limited/Unobtainable: No Respiratory: Reports: productive cough, other - extubated today Cardiovascular: Reports: no symptoms Gastrointestinal/Abdominal: Reports: constipation Genitourinary: Reports: no symptoms Musculoskeletal: Reports: other - bedbound in last 2 weeks Allergies: Coded Allergies: No Known Allergies (Unverified , 11/23/14) Objective Vital Signs Last 24 Hour Vital Signs Date Time Temp Pulse Resp B/P (MAP) Pulse Ox O2 Delivery O2 Flow Rate FiO2 02/17/18 13:00 84 19 100/55 (70) 96 02/17/18 12:00 98.6 82 17 104/73 (83) 93 98.6 02/17/18 12:00 84 02/17/18 12:00 Mechanical Ventilator 02/17/18 12:00 3.0 02/17/18 11:09 86 18 95 Nasal Cannula 3.0 02/17/18 11:00 87 17 114/73 (87) 95 02/17/18 10:00 88 20 78/55 (63) 90 02/17/18 09:00 86 19 101/56 (71) 96 02/17/18 08:39 81 12 40 02/17/18 08:00 87 02/17/18 08:00 40 02/17/18 08:00 99.0 84 16 104/54 (71) 95 99.0 02/17/18 08:00 Mechanical Ventilator 02/17/18 07:56 82 15 100 Mechanical Ventilator 40 02/17/18 07:46 83 13 98 Mechanical Ventilator 40 02/17/18 07:44 84 13 40 02/17/18 07:00 81 14 100/55 (70) 99 02/17/18 06:00 83 12 99/61 (74) 99 02/17/18 05:19 83 13 40 02/17/18 05:00 86 14 100/53 (69) 99 02/17/18 04:00 40 02/17/18 04:00 76 02/17/18 04:00 98.6 76 12 97/49 (65) 99 98.6 02/17/18 04:00 Mechanical Ventilator 9/20/18 03:39 91 12 100 Mechanical Ventilator 40 02/17/18 03:36 76 12 98 Mechanical Ventilator 40 02/17/18 03:27 76 13 40 02/17/18 03:00 74 12 98/52 (67) 99 02/17/18 02:00 72 12 100/51 (67) 96 02/17/18 01:39 77 13 40 18 01:00 76 18 106/53 (70) 99 02/17/18 00:00 98.1 85 16 103/66 (78) 99 98.1 02/17/18 00:00 83 2018 00:00 40 02/17/18 00:00 Mechanical Ventilator 02/16/18 23:35 94 12 96 Mechanical Ventilator 40 02/16/18 23:28 89 12 40 18 23:28 89 12 98 Mechanical Ventilator 40 02/16/18 23:00 84 14 100/42 (61) 97 18 22:00 88 15 92/58 (69) 97 18 21:18 83 14 40 18 21:00 84 15 110/64 (79) 96 18 20:00 40 18 20:00 89 18 20:00 Mechanical Ventilator 02/16/18 20:00 98.9 80 16 103/52 (69) 96 98.9 02/16/18 19:03 87 12 96 Mechanical Ventilator 40 02/16/18 19:02 87 12 40 18 19:00 86 14 111/56 (74) 97 18 18:50 75 12 98 Mechanical Ventilator 40 18 18:00 80 14 102/62 (75) 96 18 17:00 77 14 104/42 (62) 97 19/18 17:00 77 12 40 18 16:00 83 18 16:00 Mechanical Ventilator 18 16:00 98.5 75 14 104/45 (64) 98 98.5 18 16:00 40 18 15:07 80 12 96 Mechanical Ventilator 40 19/18 15:01 85 13 40 02/16/18 15:01 82 13 96 Mechanical Ventilator 40 02/16/18 15:00 85 14 108/59 (75) 97 Height (Feet): 5 Height (Inches): 3.00 Weight (Pounds): 477 General Appearance: other - obese HEENT: mucous membranes moist Respiratory/Chest: expiratory wheezing, other - oxygen by nasal cannula Cardiovascular: normal rate, other - R arm PICC line Abdomen: soft, non tender Extremities: other - non pitting edema of legs Neurologic/Psychiatric: alert, oriented x 3, responsive Microbiology Date/Time Source Procedure Growth Status 02/15/18 05:54 Blood Blood Culture - Preliminary Staphylococcus Sp Coag Neg Resulted 02/15/18 05:50 Blood Blood Culture - Preliminary Staphylococcus Sp Coag Neg Resulted 02/16/18 14:30 Sputum Gram Stain - Final Resulted 02/16/18 14:30 Sputum Sputum Culture Pending Resulted 02/15/18 11:22 Nasal Nares MRSA Culture - Final Staphylococcus Aureus - Mrsa Complete 02/15/18 11:22 Rectum VRE Culture - Final NO VANCOMYCIN RESISTANT ENTEROCOCCUS ... Complete 02/15/18 11:22 Rectum - Final NO CARBAPENEM-RESISTANT ENTEROBACTERI... Complete Laboratory Tests Test 02/16/18 18:02 02/17/18 04:00 02/17/18 09:55 Troponin I 0.150 ng/mL (0.000-0.056) White Blood Count 10.0 K/UL (4.8-10.8) Red Blood Count 5.04 M/UL (4.20-5.40) Hemoglobin 13.2 G/DL (12.0-16.0) Hematocrit 42.7 % (37.0-47.0) Mean Corpuscular Volume 85 FL (80-99) Mean Corpuscular Hemoglobin 26.3 PG (27.0-31.0) L Mean Corpuscular Hemoglobin Concent 31.0 G/DL (32.0-36.0) L Red Cell Distribution Width 16.6 % (11.6-14.8) H Platelet Count 111 K/UL (150-450) L Mean Platelet Volume 10.5 FL (6.5-10.1) H Neutrophils (%) (Auto) 74.2 % (45.0-75.0) Lymphocytes (%) (Auto) 15.2 % (20.0-45.0) L Monocytes (%) (Auto) 7.8 % (1.0-10.0) Eosinophils (%) (Auto) 1.9 % (0.0-3.0) Basophils (%) (Auto) 0.9 % (0.0-2.0) Sodium Level 146 MMOL/L (136-145) H Potassium Level 3.5 MMOL/L (3.5-5.1) Chloride Level 107 MMOL/L (98-107) Carbon Dioxide Level 35 MMOL/L (21-32) H Anion Gap 4 mmol/L (5-15) L Blood Urea Nitrogen 15 mg/dL (7-18) Creatinine 0.8 MG/DL (0.55-1.30) Estimat Glomerular Filtration Rate > 60 mL/min (>60) Glucose Level 81 MG/DL (74-106) Calcium Level 8.4 MG/DL (8.5-10.1) L Magnesium Level 1.9 MG/DL (1.8-2.4) Total Bilirubin 3.6 MG/DL (0.2-1.0) H Direct Bilirubin 0.8 MG/DL (0.0-0.3) H Aspartate Amino Transf (AST/SGOT) 18 U/L (15-37) Alanine Aminotransferase (ALT/SGPT) 15 U/L (12-78) Alkaline Phosphatase 61 U/L (46-116) Total Protein 6.1 G/DL (6.4-8.2) L Albumin 2.4 G/DL (3.4-5.0) L Globulin 3.7 g/dL Albumin/Globulin Ratio 0.6 (1.0-2.7) L Arterial Blood pH 7.370 (7.350-7.450) Arterial Blood Partial Pressure CO2 63.0 mmHg (35.0-45.0) *H Arterial Blood Partial Pressure O2 86.4 mmHg (75.0-100.0) Arterial Blood HCO3 35.8 mmol/L (22.0-26.0) H Arterial Blood Oxygen Saturation 95.6 % (92.0-98.0) Arterial Blood Base Excess 8.1 Renny Test Positive Current Medications Medications (Trade) Dose Ordered Sig/Hermelinda Route PRN Reason Start Time Stop Time Status Last Admin Dose Admin Acetaminophen (Tylenol) 650 mg Q4H PRN ORAL Temp > 100.5 02/15/18 13:30 03/17/18 12:29 02/16/18 08:48 Albuterol Sulfate (Proventil) 2.5 mg Q4HRT HHN 02/15/18 15:00 02/20/18 14:59 02/17/18 11:08 Cefepime HCl 2 gm/ Dextrose 110 ml @ 220 mls/hr EVERY 12 HOURS IVPB 02/16/18 16:00 02/23/18 15:59 02/17/18 09:55 Chlorhexidine Gluconate (Helene-Hex 2%) 1 applic DAILY@2000 TOPIC 02/15/18 20:00 03/17/18 19:59 02/16/18 20:45 Dextrose 500 ml @ 100 mls/hr ONCE ONCE IV 02/17/18 11:45 02/17/18 16:44 02/17/18 13:03 Furosemide (Lasix) 40 mg DAILY IV 02/16/18 09:00 03/18/18 08:59 02/17/18 09:55 Heparin Sodium (Porcine) (Heparin 5000 units/ml) 5,000 units EVERY 12 HOURS SUBQ 02/15/18 21:00 03/17/18 20:59 02/17/18 09:56 Lorazepam (Ativan 2mg/ml 1ml) 2 mg Q2H PRN IV For Anxiety 02/15/18 14:00 02/22/18 13:59 Magnesium Hydroxide (Mom) 30 ml DAILYPRN PRN ORAL Constipation 02/15/18 21:00 03/17/18 20:59 02/16/18 08:48 Morphine Sulfate (Morphine Sulfate) 2 mg Q3H PRN IVP for mild pain (1-3) 02/15/18 12:30 02/22/18 12:29 Morphine Sulfate (Morphine Sulfate) 4 mg Q3H PRN IVP For moderate pain (4-6) 02/15/18 12:30 02/22/18 12:29 Morphine Sulfate (Morphine Sulfate) 6 mg Q3H PRN IVP for severe pain (7-10) 02/15/18 12:30 02/22/18 12:29 Pantoprazole (Protonix) 40 mg DAILY IVP 02/16/18 09:00 03/18/18 08:59 02/17/18 09:55 Vancomycin HCl (Vanco rx to dose) 1 ea DAILY PRN MISC Per rx protocol 02/16/18 12:45 03/18/18 12:44 Vancomycin HCl 1 gm/Dextrose 275 ml @ 183.708 mls/hr Q8HR IVPB 02/16/18 14:00 02/21/18 13:59 02/17/18 05:38 Rj Sands MD Feb 17, 2018 14:23
--- NOTE | 2018-02-17 16:30 | Progress Note ---
DATE: 02/17/2018 CARDIOLOGY PROGRESS NOTE SUBJECTIVE: The patient remains in the intensive care unit. Orally intubated. Mechanically ventilated. On weaning trials. She is alert and has no distress at this time. OBJECTIVE: VITAL SIGNS: Blood pressure 100/55, pulse 81, and respirations 14. GENERAL: Morbidly obese. LUNGS: Bilateral breath sounds. HEART: Regular rhythm and rate. Normal S1 and S2. ABDOMEN: Obese and doughy, but soft. EXTREMITIES: There is trace dependent edema with stasis derm changes. LABORATORY DATA: White count 10 and hemoglobin 13. ABG, pH 7.37, pCO2 63, and pO2 86. Sodium 146, potassium 3.5, BUN 15, and creatinine 0.8. Albumin 2.4. IMPRESSION: 1. Pneumonia. 2. Respiratory failure. 3. Acute and chronic respiratory acidosis. 4. Obesity. 5. Hypoventilation. 6. Acute on chronic diastolic congestive heart failure. 7. Dehydration and hypernatremia post diuresis. PLAN: 1. Free water replacement. 2. Cautious diuresis post extubation. 3. Respiratory hygiene. 4. Weaning efforts. 5. DVT prophylaxis. 6. Maintain therapeutic potassium levels. 7. Antimicrobials. Niko Seymour M.D. DR: FRANCESCO JOB#: [id number] CC:
--- NOTE | 2018-02-17 18:56 | Cardiology Report ---
APPROVED REPORT EKG Measurement Heart [id number] Normal sinus rhythm T wave abnormality, consider anterolateral ischemia Prolonged QT Abnormal ECG
[2018-02-17] MEDS: Dyna-Hex 2% Top Sol 2oz TOPIC SCH (19:49)
[2018-02-18] VITALS (15 sets, daily range): BP systolic 66–115; BP diastolic 49–70
[2018-02-18] MEDS: Milk of Magnesia 30ml Ud ORAL PRN (03:02)
[2018-02-18] MEDS: Albuterol ud Inhalation HHN SCH ×6 (03:12→23:12)
[2018-02-18 04:39] LABS: HEMATOCRIT 42.4 % (37.0-47.0); HEMOGLOBIN 13.2 G/DL (12.0-16.0); MEAN CORPUSCULAR VOLUME 85 FL (80-99); PLATELET COUNT 93 K/UL (150-450); RED BLOOD COUNT 4.99 M/UL (4.20-5.40); RED CELL DISTRIBUTION WIDTH 16.6 % (11.6-14.8)
[2018-02-18 05:09] LABS: ALANINE AMINOTRANSFERASE 16 U/L (12-78); ALBUMIN 2.4 G/DL (3.4-5.0); ALBUMIN/GLOBULIN RATIO 0.6 (1.0-2.7); ALKALINE PHOSPHATASE 58 U/L (46-116); ANION GAP 2 mmol/L (5-15); ASPARTATE AMINO TRANSFERASE 18 U/L (15-37); BILIRUBIN,TOTAL 3.7 MG/DL (0.2-1.0); BLOOD UREA NITROGEN 12 mg/dL (7-18); CALCIUM 8.1 MG/DL (8.5-10.1); CARBON DIOXIDE 40 MMOL/L (21-32); CHLORIDE 104 MMOL/L (98-107); CREATININE 0.7 MG/DL (0.55-1.30); POTASSIUM 3.4 MMOL/L (3.5-5.1); SODIUM 146 MMOL/L (136-145)
[2018-02-18 05:11] LABS: BILIRUBIN,DIRECT 0.9 MG/DL (0.0-0.3)
[2018-02-18] MEDS: Pantoprazole Inj IVP SCH (08:19)
[2018-02-18] MEDS: Cefepime HCl 2 GM in D5W 110 ML IVPB SCH (08:19)
--- NOTE | 2018-02-18 08:32 | Critical Care Progress Note ---
Assessment/Plan Assessment/Plan 1. Acute on chronic respiratory failure. 2. Severe hypoxemic respiratory failure. 3. Leukocytosis. 4. Possible sepsis. 5. Evidence of elevated hemoglobin and hematocrit. 6. Possible secondary polycythemia. 7. Evidence of acute renal failure. 8. Possible demand ischemia. 9. Hypertension. 10. Asthma per history. 11. Possible pulmonary edema. 12. Bacteremia PLAN keep negative watch lytes extubated patient a good candidate for trilogy with respiratory failure PRn and nighttime BIPAP may need trilogy supportive care ID noted cards noted wants to go home on dc medications/laboratory data/nursing notes/ICU care reviewed in detail note reviewed and edited care discussed with RN and RT ICU time spent 40 minutes Critical Care - Subjective Interval Events: awake refusing bipap Condition: improving I&O: Intake and Output 02/17/18 02/18/18 19:00 07:00 Intake Total 140 ml 110 ml Output Total 1455 ml 630 ml Balance -1315 ml -520 ml IV Total 110 ml 110 ml Other 30 ml Output Urine Total 1455 ml 630 ml Critical Care - Objective ET-Tube: 7.0 ET Position: 24 Last 24 Hour Vital Signs Date Time Temp Pulse Resp B/P (MAP) Pulse Ox O2 Delivery O2 Flow Rate FiO2 02/18/18 07:00 98.7 82 17 100/50 (67) 98 98.7 02/18/18 06:00 81 17 102/53 (69) 98 02/18/18 05:00 84 17 108/53 (71) 98 02/18/18 04:00 80 02/18/18 04:00 3.0 02/18/18 04:00 Nasal Cannula 3.0 02/18/18 04:00 82 17 102/49 (66) 98 02/18/18 03:22 80 20 98 Nasal Cannula 3.0 32 02/18/18 03:12 82 19 97 Nasal Cannula 3.0 32 02/18/18 03:00 82 17 101/50 (67) 98 02/18/18 02:00 80 17 100/53 (69) 98 02/18/18 01:00 98.8 85 16 100/50 (67) 96 98.8 02/18/18 00:00 Nasal Cannula 3.0 02/18/18 00:00 85 16 99/50 (66) 96 02/17/18 23:35 92 21 99 Nasal Cannula 3.0 32 02/17/18 23:25 88 18 97 Nasal Cannula 3.0 32 02/17/18 23:00 83 16 102/51 (68) 97 02/17/18 22:00 83 16 98/50 (66) 96 02/17/18 21:00 84 16 99/49 (66) 96 02/17/18 20:00 Nasal Cannula 3.0 02/17/18 20:00 85 02/17/18 20:00 98.9 83 16 108/58 (75) 95 98.9 02/17/18 20:00 3.0 02/17/18 19:26 84 18 98 Nasal Cannula 3.0 32 02/17/18 19:16 Nasal Cannula 3.0 32 02/17/18 19:16 79 15 96 Nasal Cannula 3.0 32 02/17/18 19:16 96 Nasal Cannula 3.0 32 02/17/18 19:00 83 16 98/46 (63) 95 02/17/18 18:00 78 14 98/48 (65) 96 02/17/18 17:00 84 17 101/52 (68) 96 02/17/18 16:00 3.0 02/17/18 16:00 Nasal Cannula 3.0 02/17/18 16:00 99.2 81 14 99/46 (63) 97 99.2 02/17/18 16:00 83 02/17/18 15:15 Nasal Cannula 02/17/18 15:14 Nasal Cannula 02/17/18 15:00 85 16 100/55 (70) 99 02/17/18 14:00 83 18 92/51 (65) 97 02/17/18 13:00 84 19 100/55 (70) 96 02/17/18 12:00 98.6 82 17 104/73 (83) 93 98.6 02/17/18 12:00 84 02/17/18 12:00 Nasal Cannula 3.0 02/17/18 12:00 3.0 02/17/18 11:21 Nasal Cannula 3.0 02/17/18 11:20 95 Nasal Cannula 3.0 02/17/18 11:19 88 16 95 Nasal Cannula 3.0 02/17/18 11:09 86 18 95 Nasal Cannula 3.0 02/17/18 11:00 87 17 114/73 (87) 95 02/17/18 10:00 88 20 78/55 (63) 90 02/17/18 09:00 86 19 101/56 (71) 96 02/17/18 08:46 Nasal Cannula 2.0 02/17/18 08:45 98 02/17/18 08:39 81 12 40 Labs: Laboratory Tests Test 02/17/18 09:55 02/17/18 14:05 02/18/18 04:00 02/18/18 07:40 Arterial Blood pH 7.370 (7.350-7.450) 7.300 (7.350-7.450) Arterial Blood Partial Pressure CO2 63.0 mmHg (35.0-45.0) *H 85.5 mmHg (35.0-45.0) *H Arterial Blood Partial Pressure O2 86.4 mmHg (75.0-100.0) 85.3 mmHg (75.0-100.0) Arterial Blood HCO3 35.8 mmol/L (22.0-26.0) H 41.1 mmol/L (22.0-26.0) H Arterial Blood Oxygen Saturation 95.6 % (92.0-98.0) 95.4 % (92.0-98.0) Arterial Blood Base Excess 8.1 11.0 Renny Test Positive Positive Vancomycin Level Trough 19.3 ug/mL (5.0-12.0) H White Blood Count 10.0 K/UL (4.8-10.8) Red Blood Count 4.99 M/UL (4.20-5.40) Hemoglobin 13.2 G/DL (12.0-16.0) Hematocrit 42.4 % (37.0-47.0) Mean Corpuscular Volume 85 FL (80-99) Mean Corpuscular Hemoglobin 26.4 PG (27.0-31.0) L Mean Corpuscular Hemoglobin Concent 31.1 G/DL (32.0-36.0) L Red Cell Distribution Width 16.6 % (11.6-14.8) H Platelet Count 93 K/UL (150-450) L Mean Platelet Volume 10.1 FL (6.5-10.1) Neutrophils (%) (Auto) % (45.0-75.0) Lymphocytes (%) (Auto) % (20.0-45.0) Monocytes (%) (Auto) % (1.0-10.0) Eosinophils (%) (Auto) % (0.0-3.0) Basophils (%) (Auto) % (0.0-2.0) Neutrophils % (Manual) Pending Lymphocytes % (Manual) Pending Platelet Estimate Pending Platelet Morphology Pending Sodium Level 146 MMOL/L (136-145) H Potassium Level 3.4 MMOL/L (3.5-5.1) L Chloride Level 104 MMOL/L (98-107) Carbon Dioxide Level 40 MMOL/L (21-32) H Anion Gap 2 mmol/L (5-15) L Blood Urea Nitrogen 12 mg/dL (7-18) Creatinine 0.7 MG/DL (0.55-1.30) Estimat Glomerular Filtration Rate > 60 mL/min (>60) Glucose Level 96 MG/DL (74-106) Calcium Level 8.1 MG/DL (8.5-10.1) L Magnesium Level 1.8 MG/DL (1.8-2.4) Total Bilirubin 3.7 MG/DL (0.2-1.0) H Direct Bilirubin 0.9 MG/DL (0.0-0.3) H Aspartate Amino Transf (AST/SGOT) 18 U/L (15-37) Alanine Aminotransferase (ALT/SGPT) 16 U/L (12-78) Alkaline Phosphatase 58 U/L (46-116) Pro-B-Type Natriuretic Peptide 504 pg/mL (0-125) H Total Protein 6.3 G/DL (6.4-8.2) L Albumin 2.4 G/DL (3.4-5.0) L Globulin 3.9 g/dL Albumin/Globulin Ratio 0.6 (1.0-2.7) L Objective: WDWN on oxygen and alert morbidly obese reduced breath sounds bilaterally without rhonchi or wheeze D2H5ISM without MRG NABS nontender no distention; obese no CC chronic skin changes and edema nonfocal but weak Micro: Microbiology Date/Time Source Procedure Growth Status 02/16/18 14:30 Sputum Gram Stain - Final Resulted 02/16/18 14:30 Sputum Culture - Preliminary Staphylococcus Aureus Resulted 02/15/18 11:22 Nasal Nares MRSA Culture - Final Staphylococcus Aureus - Mrsa Complete 02/15/18 11:22 Rectum VRE Culture - Final NO VANCOMYCIN RESISTANT ENTEROCOCCUS ... Complete 02/15/18 11:22 Rectum - Final NO CARBAPENEM-RESISTANT ENTEROBACTERI... Complete Kurtis Vazquez MD Feb 18, 2018 08:32
[2018-02-18] MEDS ORDERED: LORazepam Inj 2mg/ml 1ml IV PRN (10:00)
--- NOTE | 2018-02-18 10:56 | Infectious Diseases Prog Note ---
"Assessment/Plan Assessment/Plan antibiotics : cefepime A 1. staph aureus pneumonia 2. respiratory failure 3. blood cultures with coag neg staph | diphtheroids likely contaminated 4. MRSA nasal colonization 5. hypertension 6. obesity P 1. d/c cefepime 2. start iv vancomycin 3. will follow up cultures Subjective ROS Limited/Unobtainable: Yes Allergies: Coded Allergies: No Known Allergies (Unverified , 11/23/14) Objective Vital Signs Last 24 Hour Vital Signs Date Time Temp Pulse Resp B/P (MAP) Pulse Ox O2 Delivery O2 Flow Rate FiO2 02/18/18 09:33 99.0 80 17 114/62 (79) 96 99.0 02/18/18 09:00 88 17 114/62 (79) 96 02/18/18 08:00 Nasal Cannula 3.0 02/18/18 08:00 40 02/18/18 08:00 84 02/18/18 07:00 98.7 82 17 100/50 (67) 98 98.7 02/18/18 06:00 81 17 102/53 (69) 98 02/18/18 05:00 84 17 108/53 (71) 98 02/18/18 04:00 80 02/18/18 04:00 3.0 02/18/18 04:00 Nasal Cannula 3.0 02/18/18 04:00 82 17 102/49 (66) 98 02/18/18 03:22 80 20 98 Nasal Cannula 3.0 32 02/18/18 03:12 82 19 97 Nasal Cannula 3.0 32 02/18/18 03:00 82 17 101/50 (67) 98 02/18/18 02:00 80 17 100/53 (69) 98 02/18/18 01:00 98.8 85 16 100/50 (67) 96 98.8 02/18/18 00:00 Nasal Cannula 3.0 02/18/18 00:00 85 16 99/50 (66) 96 02/17/18 23:35 92 21 99 Nasal Cannula 3.0 32 02/17/18 23:25 88 18 97 Nasal Cannula 3.0 32 02/17/18 23:00 83 16 102/51 (68) 97 02/17/18 22:00 83 16 98/50 (66) 96 02/17/18 21:00 84 16 99/49 (66) 96 9/20/18 20:00 Nasal Cannula 3.0 02/17/18 20:00 85 02/17/18 20:00 98.9 83 16 108/58 (75) 95 98.9 02/17/18 20:00 3.0 02/17/18 19:26 84 18 98 Nasal Cannula 3.0 32 02/17/18 19:16 Nasal Cannula 3.0 32 02/17/18 19:16 79 15 96 Nasal Cannula 3.0 32 02/17/18 19:16 96 Nasal Cannula 3.0 32 02/17/18 19:00 83 16 98/46 (63) 95 02/17/18 18:00 78 14 98/48 (65) 96 02/17/18 17:00 84 17 101/52 (68) 96 02/17/18 16:00 3.0 02/17/18 16:00 Nasal Cannula 3.0 02/17/18 16:00 99.2 81 14 99/46 (63) 97 99.2 02/17/18 16:00 83 02/17/18 15:15 Nasal Cannula 02/17/18 15:14 Nasal Cannula 02/17/18 15:00 85 16 100/55 (70) 99 02/17/18 14:00 83 18 92/51 (65) 97 02/17/18 13:00 84 19 100/55 (70) 96 02/17/18 12:00 98.6 82 17 104/73 (83) 93 98.6 02/17/18 12:00 84 02/17/18 12:00 Nasal Cannula 3.0 02/17/18 12:00 3.0 02/17/18 11:21 Nasal Cannula 3.0 02/17/18 11:20 95 Nasal Cannula 3.0 02/17/18 11:19 88 16 95 Nasal Cannula 3.0 02/17/18 11:09 86 18 95 Nasal Cannula 3.0 02/17/18 11:00 87 17 114/73 (87) 95 Height (Feet): 5 Height (Inches): 3.00 Weight (Pounds): 477 HEENT: other - on bipap Respiratory/Chest: lungs clear Cardiovascular: normal rate, regular rhythm, no gallop/murmur Abdomen: soft, non tender Extremities: other - + edema, right arm PICC Microbiology Date/Time Source Procedure Growth Status 02/16/18 14:30 Sputum Gram Stain - Final Resulted 02/16/18 14:30 Sputum Culture - Preliminary Staphylococcus Aureus Resulted 02/15/18 11:22 Nasal Nares MRSA Culture - Final Staphylococcus Aureus - Mrsa Complete 02/15/18 11:22 Rectum VRE Culture - Final NO VANCOMYCIN RESISTANT ENTEROCOCCUS ... Complete 02/15/18 11:22 Rectum - Final NO CARBAPENEM-RESISTANT ENTEROBACTERI... Complete Laboratory Tests Test 02/17/18 14:05 02/18/18 04:00 02/18/18 07:40 Vancomycin Level Trough 19.3 ug/mL (5.0-12.0) H White Blood Count 10.0 K/UL (4.8-10.8) Red Blood Count 4.99 M/UL (4.20-5.40) Hemoglobin 13.2 G/DL (12.0-16.0) Hematocrit 42.4 % (37.0-47.0) Mean Corpuscular Volume 85 FL (80-99) Mean Corpuscular Hemoglobin 26.4 PG (27.0-31.0) L Mean Corpuscular Hemoglobin Concent 31.1 G/DL (32.0-36.0) L Red Cell Distribution Width 16.6 % (11.6-14.8) H Platelet Count 93 K/UL (150-450) L Mean Platelet Volume 10.1 FL (6.5-10.1) Neutrophils (%) (Auto) % (45.0-75.0) Lymphocytes (%) (Auto) % (20.0-45.0) Monocytes (%) (Auto) % (1.0-10.0) Eosinophils (%) (Auto) % (0.0-3.0) Basophils (%) (Auto) % (0.0-2.0) Differential Total Cells Counted 100 Neutrophils % (Manual) 80 % (45-75) H Lymphocytes % (Manual) 14 % (20-45) L Monocytes % (Manual) 6 % (1-10) Eosinophils % (Manual) 0 % (0-3) Basophils % (Manual) 0 % (0-2) Band Neutrophils 0 % (0-8) Platelet Estimate Decreased L Platelet Morphology Normal Hypochromasia 1+ Anisocytosis 1+ Sodium Level 146 MMOL/L (136-145) H Potassium Level 3.4 MMOL/L (3.5-5.1) L Chloride Level 104 MMOL/L (98-107) Carbon Dioxide Level 40 MMOL/L (21-32) H Anion Gap 2 mmol/L (5-15) L Blood Urea Nitrogen 12 mg/dL (7-18) Creatinine 0.7 MG/DL (0.55-1.30) Estimat Glomerular Filtration Rate > 60 mL/min (>60) Glucose Level 96 MG/DL (74-106) Calcium Level 8.1 MG/DL (8.5-10.1) L Magnesium Level 1.8 MG/DL (1.8-2.4) Total Bilirubin 3.7 MG/DL (0.2-1.0) H Direct Bilirubin 0.9 MG/DL (0.0-0.3) H Aspartate Amino Transf (AST/SGOT) 18 U/L (15-37) Alanine Aminotransferase (ALT/SGPT) 16 U/L (12-78) Alkaline Phosphatase 58 U/L (46-116) Pro-B-Type Natriuretic Peptide 504 pg/mL (0-125) H Total Protein 6.3 G/DL (6.4-8.2) L Albumin 2.4 G/DL (3.4-5.0) L Globulin 3.9 g/dL Albumin/Globulin Ratio 0.6 (1.0-2.7) L Arterial Blood pH 7.300 (7.350-7.450) Arterial Blood Partial Pressure CO2 85.5 mmHg (35.0-45.0) *H Arterial Blood Partial Pressure O2 85.3 mmHg (75.0-100.0) Arterial Blood HCO3 41.1 mmol/L (22.0-26.0) H Arterial Blood Oxygen Saturation 95.4 % (92.0-98.0) Arterial Blood Base Excess 11.0 Renny Test Positive Current Medications Medications (Trade) Dose Ordered Sig/Hermelinda Route PRN Reason Start Time Stop Time Status Last Admin Dose Admin Acetaminophen (Tylenol) 650 mg Q4H PRN ORAL Temp > 100.5 02/18/18 11:00 03/17/18 10:59 Albuterol Sulfate (Proventil) 2.5 mg Q4HRT HHN 02/18/18 11:00 02/20/18 14:59 Cefepime HCl 2 gm/ Dextrose 110 ml @ 220 mls/hr EVERY 12 HOURS IVPB 02/18/18 21:00 02/23/18 15:59 Chlorhexidine Gluconate (Helene-Hex 2%) 1 applic DAILY@2000 TOPIC 02/18/18 20:00 03/17/18 19:59 Clotrimazole (Lotrimin) 1 applic EVERY 12 HOURS TOPIC 02/18/18 21:00 03/20/18 20:59 Furosemide (Lasix) 40 mg DAILY IV 02/19/18 09:00 03/18/18 08:59 Heparin Sodium (Porcine) (Heparin 5000 units/ml) 5,000 units EVERY 12 HOURS SUBQ 02/18/18 21:00 03/17/18 20:59 Lorazepam (Ativan 2mg/ml 1ml) 2 mg Q2H PRN IV For Anxiety 02/18/18 10:00 02/22/18 13:59 Magnesium Hydroxide (Mom) 30 ml DAILYPRN PRN ORAL Constipation 02/18/18 11:00 03/17/18 10:59 Morphine Sulfate (Morphine Sulfate) 2 mg Q3H PRN IVP for mild pain (1-3) 02/18/18 11:00 02/22/18 10:59 Morphine Sulfate (Morphine Sulfate) 4 mg Q3H PRN IVP For moderate pain (4-6) 02/18/18 11:00 02/22/18 10:59 Morphine Sulfate (Morphine Sulfate) 6 mg Q3H PRN IVP for severe pain (7-10) 02/18/18 12:30 02/22/18 12:29 NAJMA CEJA Feb 18, 2018 10:56"
[2018-02-18] MEDS ORDERED: Morphine Sulfate 2mg/ml Inj IVP PRN (11:00)
[2018-02-18] MEDS ORDERED: Morphine Sulfate 4mg/ml Inj (IV USE ONLY) IVP PRN (11:00)
[2018-02-18] MEDS ORDERED: Milk of Magnesia 30ml Ud ORAL PRN (11:00)
[2018-02-18] MEDS ORDERED: Morphine Sulfate 10mg/ml Inj IVP PRN (12:30)
[2018-02-18] MEDS: Vancomycin 1gm/D5W 275ml IVPB SCH ×4 (13:25→21:48)
--- NOTE | 2018-02-18 15:38 | General Progress Note ---
Assessment/Plan Problem List: (1) Pneumonia ICD Codes: J18.9 - Pneumonia, unspecified organism SNOMED: 752160108 (2) Pleural effusion ICD Codes: J90 - Pleural effusion, not elsewhere classified SNOMED: 69953542 (3) Morbid obesity ICD Codes: E66.01 - Morbid (severe) obesity due to excess calories SNOMED: 722952696 (4) Leg edema ICD Codes: R60.0 - Localized edema SNOMED: 266995455 (5) Unable to ambulate ICD Codes: R26.2 - Difficulty in walking, not elsewhere classified SNOMED: 432038761 (6) Morbid obesity ICD Codes: E66.01 - Morbid (severe) obesity due to excess calories SNOMED: 662733387 (7) Hypercapnia ICD Codes: R06.89 - Other abnormalities of breathing SNOMED: 05709678 (8) Elevated troponin ICD Codes: R74.8 - Abnormal levels of other serum enzymes SNOMED: 814546282, 560612482, 382061436 (9) Dyspnea ICD Codes: R06.00 - Dyspnea, unspecified SNOMED: 112601973 (10) CHF (congestive heart failure) ICD Codes: I50.9 - Heart failure, unspecified SNOMED: 33879385 (11) Bacteremia ICD Codes: R78.81 - Bacteremia SNOMED: 2547142 Status: stable, progressing Assessment/Plan monitor abg bipap as needed and qhs resp rx iv abx diuresis monitor labs and cxr skin/wound care pt/ot Subjective Time patient seen: 06:00 ROS Limited/Unobtainable: No Constitutional: Reports: malaise, weakness HEENT: Reports: no symptoms Cardiovascular: Reports: no symptoms Respiratory: Reports: cough, shortness of breath Gastrointestinal/Abdominal: Reports: abdomen distended Genitourinary: Reports: no symptoms Neurologic/Psychiatric: Reports: weakness Endocrine: Reports: no symptoms Hematologic/Lymphatic: Reports: no symptoms Allergies: Coded Allergies: No Known Allergies (Unverified , 11/23/14) All Systems: reviewed and negative except above Subjective extubated. no complaints. denies sob. has been bed bound for 6 mos. wondering why she cant walk. Objective Last 24 Hour Vital Signs Date Time Temp Pulse Resp B/P (MAP) Pulse Ox O2 Delivery O2 Flow Rate FiO2 02/18/18 12:00 85 02/18/18 12:00 99.0 77 18 112/61 (78) 96 99.0 02/18/18 12:00 Nasal Cannula 3.0 02/18/18 12:00 40 02/18/18 11:42 80 20 98 Bi-pap 40 02/18/18 11:32 78 20 96 Bi-pap 40 02/18/18 11:29 78 20 96 Facial 40 02/18/18 09:33 99.0 80 17 114/62 (79) 96 99.0 02/18/18 09:24 79 20 95 Facial 40 02/18/18 09:00 88 17 114/62 (79) 96 02/18/18 08:00 Nasal Cannula 3.0 02/18/18 08:00 40 02/18/18 08:00 84 02/18/18 07:48 Nasal Cannula 3.0 02/18/18 07:32 Nasal Cannula 3.0 02/18/18 07:31 97 Nasal Cannula 3.0 32 02/18/18 07:00 98.7 82 17 100/50 (67) 98 98.7 02/18/18 06:00 81 17 102/53 (69) 98 02/18/18 05:00 84 17 108/53 (71) 98 02/18/18 04:00 80 02/18/18 04:00 3.0 02/18/18 04:00 Nasal Cannula 3.0 02/18/18 04:00 82 17 102/49 (66) 98 02/18/18 03:22 80 20 98 Nasal Cannula 3.0 32 02/18/18 03:12 82 19 97 Nasal Cannula 3.0 32 02/18/18 03:00 82 17 101/50 (67) 98 02/18/18 02:00 80 17 100/53 (69) 98 02/18/18 01:00 98.8 85 16 100/50 (67) 96 98.8 02/18/18 00:00 Nasal Cannula 3.0 02/18/18 00:00 85 16 99/50 (66) 96 02/17/18 23:35 92 21 99 Nasal Cannula 3.0 32 02/17/18 23:25 88 18 97 Nasal Cannula 3.0 32 02/17/18 23:00 83 16 102/51 (68) 97 02/17/18 22:00 83 16 98/50 (66) 96 02/17/18 21:00 84 16 99/49 (66) 96 02/17/18 20:00 Nasal Cannula 3.0 02/17/18 20:00 85 02/17/18 20:00 98.9 83 16 108/58 (75) 95 98.9 02/17/18 20:00 3.0 02/17/18 19:26 84 18 98 Nasal Cannula 3.0 32 02/17/18 19:16 Nasal Cannula 3.0 32 02/17/18 19:16 79 15 96 Nasal Cannula 3.0 32 02/17/18 19:16 96 Nasal Cannula 3.0 32 02/17/18 19:00 83 16 98/46 (63) 95 02/17/18 18:00 78 14 98/48 (65) 96 02/17/18 17:00 84 17 101/52 (68) 96 02/17/18 16:00 3.0 02/17/18 16:00 Nasal Cannula 3.0 02/17/18 16:00 99.2 81 14 99/46 (63) 97 99.2 02/17/18 16:00 83 Intake and Output 02/17/18 02/18/18 19:00 07:00 Intake Total 140 ml 110 ml Output Total 1455 ml 630 ml Balance -1315 ml -520 ml IV Total 110 ml 110 ml Other 30 ml Output Urine Total 1455 ml 630 ml Laboratory Tests 02/18/18 04:00: White Blood Count 10.0, Red Blood Count 4.99, Hemoglobin 13.2, Hematocrit 42.4, Mean Corpuscular Volume 85, Mean Corpuscular Hemoglobin 26.4L, Mean Corpuscular Hemoglobin Concent 31.1L, Red Cell Distribution Width 16.6H, Platelet Count 93L , Mean Platelet Volume 10.1, Neutrophils (%) (Auto) , Lymphocytes (%) (Auto) , Monocytes (%) (Auto) , Eosinophils (%) (Auto) , Basophils (%) (Auto) , Differential Total Cells Counted 100, Neutrophils % (Manual) 80H, Lymphocytes % (Manual) 14L, Monocytes % (Manual) 6, Eosinophils % (Manual) 0, Basophils % ( Manual) 0, Band Neutrophils 0, Platelet Estimate DecreasedL, Platelet Morphology Normal, Hypochromasia 1+, Anisocytosis 1+, Sodium Level 146H, Potassium Level 3.4L, Chloride Level 104, Carbon Dioxide Level 40H, Anion Gap 2L , Blood Urea Nitrogen 12, Creatinine 0.7, Estimat Glomerular Filtration Rate > 60, Glucose Level 96, Calcium Level 8.1L, Magnesium Level 1.8, Total Bilirubin 3.7H, Direct Bilirubin 0.9H, Aspartate Amino Transf (AST/SGOT) 18, Alanine Aminotransferase (ALT/SGPT) 16, Alkaline Phosphatase 58, Pro-B-Type Natriuretic Peptide 504H, Total Protein 6.3L, Albumin 2.4L, Globulin 3.9, Albumin/Globulin Ratio 0.6L 02/18/18 07:40: Arterial Blood pH 7.300L, Arterial Blood Partial Pressure CO2 85.5*H, Arterial Blood Partial Pressure O2 85.3, Arterial Blood HCO3 41.1H, Arterial Blood Oxygen Saturation 95.4, Arterial Blood Base Excess 11.0, Renny Test Positive Height (Feet): 5 Height (Inches): 3.00 Weight (Pounds): 477 General Appearance: WD/WN, alert Neck: supple Cardiovascular: normal rate, regular rhythm Respiratory/Chest: chest wall non-tender, lungs clear, normal breath sounds Abdomen: normal bowel sounds, non tender, soft, no organomegaly, no mass Edema: moderate edema 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
[2018-02-18] MEDS ORDERED: NS 275ml ONE (15:47)
[2018-02-18] MEDS ORDERED: Tubing IV Secondary IV ONE (15:47)
[2018-02-18] MEDS ORDERED: Bisacodyl EC 5mg tab ORAL PRN (17:00)
[2018-02-18] MEDS: Dyna-Hex 2% Top Sol 2oz TOPIC SCH (20:03)
[2018-02-18] MEDS: Heparin 5000 units/ml inj SUBQ SCH (21:00)
[2018-02-18] MEDS ORDERED: Cefepime HCl 2 GM in D5W 110 ML IVPB SCH (21:00)
[2018-02-19] VITALS: BP 111/61
[2018-02-19] MEDS: Albuterol ud Inhalation HHN SCH ×6 (03:11→22:32)
[2018-02-19 04:00] VITALS: BP 108/55
[2018-02-19 05:39] LABS: HEMATOCRIT 43.2 % (37.0-47.0); MEAN CORPUSCULAR VOLUME 87 FL (80-99); PLATELET COUNT 93 K/UL (150-450); RED BLOOD COUNT 4.99 M/UL (4.20-5.40); RED CELL DISTRIBUTION WIDTH 16.8 % (11.6-14.8); WHITE BLOOD COUNT 9.8 K/UL (4.8-10.8)
[2018-02-19 05:41] LABS: ANION GAP 1 mmol/L (5-15); BLOOD UREA NITROGEN 13 mg/dL (7-18); CALCIUM 8.7 MG/DL (8.5-10.1); CHLORIDE 101 MMOL/L (98-107); CREATININE 0.7 MG/DL (0.55-1.30); POTASSIUM 3.5 MMOL/L (3.5-5.1); SODIUM 143 MMOL/L (136-145)
[2018-02-19] MEDS: Vancomycin 1gm/D5W 275ml IVPB SCH ×6 (05:41→21:53)
[2018-02-19 06:34] LABS: CARBON DIOXIDE 41 MMOL/L (21-32)
[2018-02-19 08:00] VITALS: BP 113/67
[2018-02-19] MEDS: Heparin 5000 units/ml inj SUBQ SCH ×2 (09:00→21:00)
--- NOTE | 2018-02-19 09:26 | Critical Care Progress Note ---
Assessment/Plan Assessment/Plan 1. Acute on chronic respiratory failure. 2. Severe hypoxemic respiratory failure. 3. Leukocytosis. 4. Possible sepsis. 5. Evidence of elevated hemoglobin and hematocrit. 6. Possible secondary polycythemia. 7. Evidence of acute renal failure. 8. Possible demand ischemia. 9. Hypertension. 10. Asthma per history. 11. Possible pulmonary edema. 12. Bacteremia PLAN keep negative watch lytes extubated and stable patient a good candidate for trilogy with respiratory failure PRn and nighttime BIPAP may need trilogy supportive care ID noted cards noted wants to go home on dc and not snf medications/laboratory data/nursing notes reviewed in detail note reviewed and edited care discussed with RN and RT Critical Care - Subjective Interval Events: improved alert no distress used BIPAP last night Condition: improving EKG Rhythm: Sinus Rhythm I&O: Intake and Output 02/18/18 02/19/18 19:00 07:00 Intake Total 875.000 ml 578.708 ml Output Total 2200 ml 500 ml Balance -1325.000 ml 78.708 ml Intake Oral 600 ml 120 ml IV Total 275.000 ml 458.708 ml Output Urine Total 2200 ml 500 ml # Bowel Movements 1 2 Critical Care - Objective ET-Tube: 7.0 ET Position: 24 Last 24 Hour Vital Signs Date Time Temp Pulse Resp B/P (MAP) Pulse Ox O2 Delivery O2 Flow Rate FiO2 02/19/18 07:47 83 19 98 Bi-pap 35 02/19/18 07:27 Nasal Cannula 3.0 32 02/19/18 07:26 97 Nasal Cannula 3.0 32 02/19/18 07:25 82 20 97 Bi-pap 35 02/19/18 05:18 83 19 96 Facial 35 02/19/18 04:00 86 02/19/18 04:00 Bi-pap 02/19/18 04:00 35 02/19/18 04:00 97.8 85 20 108/55 (72) 98 97.8 02/19/18 03:21 86 21 96 Bi-pap 35 02/19/18 03:11 86 17 96 Bi-pap 35 02/19/18 03:11 86 19 96 Facial 35 02/19/18 00:47 85 19 97 Facial 35 02/19/18 00:00 84 02/19/18 00:00 97.9 79 20 111/61 (78) 99 97.9 02/19/18 00:00 35 02/19/18 00:00 Bi-pap 02/18/18 23:22 83 18 98 Bi-pap 35 02/18/18 23:12 88 23 97 Bi-pap 35 02/18/18 23:11 88 23 97 Facial 35 02/18/18 20:00 Nasal Cannula 3.0 02/18/18 20:00 98.1 87 20 102/68 (79) 95 98.1 02/18/18 20:00 86 02/18/18 20:00 3.0 02/18/18 19:16 88 20 99 Nasal Cannula 3.0 32 02/18/18 19:06 89 20 97 Nasal Cannula 3.0 32 02/18/18 19:06 97 Nasal Cannula 3.0 32 02/18/18 19:06 Nasal Cannula 3.0 32 02/18/18 16:38 75 17 115/70 (85) 96 02/18/18 16:00 81 02/18/18 16:00 Nasal Cannula 3.0 02/18/18 16:00 3.0 02/18/18 16:00 98.7 77 20 115/62 (79) 95 98.7 02/18/18 15:46 87 22 99 Bi-pap 40 02/18/18 15:36 85 22 99 Nasal Cannula 3.0 02/18/18 12:00 85 02/18/18 12:00 99.0 77 18 112/61 (78) 96 99.0 02/18/18 12:00 Nasal Cannula 3.0 02/18/18 12:00 40 02/18/18 11:42 80 20 98 Bi-pap 40 02/18/18 11:32 78 20 96 Bi-pap 40 02/18/18 11:29 78 20 96 Facial 40 02/18/18 09:33 99.0 80 17 114/62 (79) 96 99.0 Labs: Labs Test 02/16/18 12:00 02/16/18 18:02 02/17/18 04:00 02/17/18 09:55 Troponin I 0.154 ng/mL (0.000-0.056) 0.150 ng/mL (0.000-0.056) White Blood Count 10.0 K/UL (4.8-10.8) Red Blood Count 5.04 M/UL (4.20-5.40) Hemoglobin 13.2 G/DL (12.0-16.0) Hematocrit 42.7 % (37.0-47.0) Mean Corpuscular Volume 85 FL (80-99) Mean Corpuscular Hemoglobin 26.3 PG (27.0-31.0) Mean Corpuscular Hemoglobin Concent 31.0 G/DL (32.0-36.0) Red Cell Distribution Width 16.6 % (11.6-14.8) Platelet Count 111 K/UL (150-450) Mean Platelet Volume 10.5 FL (6.5-10.1) Neutrophils (%) (Auto) 74.2 % (45.0-75.0) Lymphocytes (%) (Auto) 15.2 % (20.0-45.0) Monocytes (%) (Auto) 7.8 % (1.0-10.0) Eosinophils (%) (Auto) 1.9 % (0.0-3.0) Basophils (%) (Auto) 0.9 % (0.0-2.0) Sodium Level 146 MMOL/L (136-145) Potassium Level 3.5 MMOL/L (3.5-5.1) Chloride Level 107 MMOL/L (98-107) Carbon Dioxide Level 35 MMOL/L (21-32) Anion Gap 4 mmol/L (5-15) Blood Urea Nitrogen 15 mg/dL (7-18) Creatinine 0.8 MG/DL (0.55-1.30) Estimat Glomerular Filtration Rate > 60 mL/min (>60) Glucose Level 81 MG/DL (74-106) Calcium Level 8.4 MG/DL (8.5-10.1) Magnesium Level 1.9 MG/DL (1.8-2.4) Total Bilirubin 3.6 MG/DL (0.2-1.0) Direct Bilirubin 0.8 MG/DL (0.0-0.3) Aspartate Amino Transf (AST/SGOT) 18 U/L (15-37) Alanine Aminotransferase (ALT/SGPT) 15 U/L (12-78) Alkaline Phosphatase 61 U/L (46-116) Total Protein 6.1 G/DL (6.4-8.2) Albumin 2.4 G/DL (3.4-5.0) Globulin 3.7 g/dL Albumin/Globulin Ratio 0.6 (1.0-2.7) Arterial Blood pH 7.370 (7.350-7.450) Arterial Blood Partial Pressure CO2 63.0 mmHg (35.0-45.0) Arterial Blood Partial Pressure O2 86.4 mmHg (75.0-100.0) Arterial Blood HCO3 35.8 mmol/L (22.0-26.0) Arterial Blood Oxygen Saturation 95.6 % (92.0-98.0) Arterial Blood Base Excess 8.1 Renny Test Positive Test 02/17/18 14:05 02/18/18 04:00 02/18/18 07:40 02/19/18 03:50 Vancomycin Level Trough 19.3 ug/mL (5.0-12.0) White Blood Count 10.0 K/UL (4.8-10.8) 9.8 K/UL (4.8-10.8) Red Blood Count 4.99 M/UL (4.20-5.40) 4.99 M/UL (4.20-5.40) Hemoglobin 13.2 G/DL (12.0-16.0) 13.0 G/DL (12.0-16.0) Hematocrit 42.4 % (37.0-47.0) 43.2 % (37.0-47.0) Mean Corpuscular Volume 85 FL (80-99) 87 FL (80-99) Mean Corpuscular Hemoglobin 26.4 PG (27.0-31.0) 26.1 PG (27.0-31.0) Mean Corpuscular Hemoglobin Concent 31.1 G/DL (32.0-36.0) 30.1 G/DL (32.0-36.0) Red Cell Distribution Width 16.6 % (11.6-14.8) 16.8 % (11.6-14.8) Platelet Count 93 K/UL (150-450) 93 K/UL (150-450) Mean Platelet Volume 10.1 FL (6.5-10.1) 10.2 FL (6.5-10.1) Neutrophils (%) (Auto) % (45.0-75.0) % (45.0-75.0) Lymphocytes (%) (Auto) % (20.0-45.0) % (20.0-45.0) Monocytes (%) (Auto) % (1.0-10.0) % (1.0-10.0) Eosinophils (%) (Auto) % (0.0-3.0) % (0.0-3.0) Basophils (%) (Auto) % (0.0-2.0) % (0.0-2.0) Differential Total Cells Counted 100 Neutrophils % (Manual) 80 % (45-75) Lymphocytes % (Manual) 14 % (20-45) Monocytes % (Manual) 6 % (1-10) Eosinophils % (Manual) 0 % (0-3) Basophils % (Manual) 0 % (0-2) Band Neutrophils 0 % (0-8) Platelet Estimate Decreased Platelet Morphology Normal Hypochromasia 1+ Anisocytosis 1+ Sodium Level 146 MMOL/L (136-145) Potassium Level 3.4 MMOL/L (3.5-5.1) Chloride Level 104 MMOL/L (98-107) Carbon Dioxide Level 40 MMOL/L (21-32) Anion Gap 2 mmol/L (5-15) Blood Urea Nitrogen 12 mg/dL (7-18) Creatinine 0.7 MG/DL (0.55-1.30) Estimat Glomerular Filtration Rate > 60 mL/min (>60) Glucose Level 96 MG/DL (74-106) Calcium Level 8.1 MG/DL (8.5-10.1) Magnesium Level 1.8 MG/DL (1.8-2.4) Total Bilirubin 3.7 MG/DL (0.2-1.0) Direct Bilirubin 0.9 MG/DL (0.0-0.3) Aspartate Amino Transf (AST/SGOT) 18 U/L (15-37) Alanine Aminotransferase (ALT/SGPT) 16 U/L (12-78) Alkaline Phosphatase 58 U/L (46-116) Pro-B-Type Natriuretic Peptide 504 pg/mL (0-125) Total Protein 6.3 G/DL (6.4-8.2) Albumin 2.4 G/DL (3.4-5.0) Globulin 3.9 g/dL Albumin/Globulin Ratio 0.6 (1.0-2.7) Arterial Blood pH 7.300 (7.350-7.450) Arterial Blood Partial Pressure CO2 85.5 mmHg (35.0-45.0) Arterial Blood Partial Pressure O2 85.3 mmHg (75.0-100.0) Arterial Blood HCO3 41.1 mmol/L (22.0-26.0) Arterial Blood Oxygen Saturation 95.4 % (92.0-98.0) Arterial Blood Base Excess 11.0 Renny Test Positive Test 02/19/18 03:55 02/19/18 07:54 02/19/18 09:05 Sodium Level 143 MMOL/L (136-145) Potassium Level 3.5 MMOL/L (3.5-5.1) Chloride Level 101 MMOL/L (98-107) Carbon Dioxide Level 41 MMOL/L (21-32) Anion Gap 1 mmol/L (5-15) Blood Urea Nitrogen 13 mg/dL (7-18) Creatinine 0.7 MG/DL (0.55-1.30) Estimat Glomerular Filtration Rate > 60 mL/min (>60) Glucose Level 101 MG/DL (74-106) Calcium Level 8.7 MG/DL (8.5-10.1) Arterial Blood pH 7.371 (7.350-7.450) Arterial Blood Partial Pressure CO2 72.6 mmHg (35.0-45.0) Arterial Blood Partial Pressure O2 79.3 mmHg (75.0-100.0) Arterial Blood HCO3 41.3 mmol/L (22.0-26.0) Arterial Blood Oxygen Saturation 95.5 % (92.0-98.0) Arterial Blood Base Excess 12.6 Renny Test Positive Objective: WDWN on oxygen and alert morbidly obese reduced breath sounds bilaterally without rhonchi or wheeze [id number] without MRG NABS nontender no distention; obese no CC chronic skin changes and edema somewhat improved nonfocal but weak Micro: Microbiology Date/Time Source Procedure Growth Status 02/16/18 14:30 Sputum Gram Stain - Final Complete 02/16/18 14:30 Sputum Culture - Final Staphylococcus Aureus Complete Kurtis Vazquez MD Feb 19, 2018 09:26
[2018-02-19 09:56] LABS: APPEARANCE,URINE VERY CLOUDY; BILIRUBIN, URINE 2+ (NEGATIVE); COLOR,URINE BROWN; GLUCOSE, URINE (UA) NEGATIVE (NEGATIVE); KETONES,URINE 1+ (NEGATIVE); LEUKOCYTE ESTERASE ,URINE 1+ (NEGATIVE); NITRITE,URINE POSITIVE (NEGATIVE); PH,URINE 5 (4.5-8.0); PROTEIN,URINE 2+ (NEGATIVE); UROBILINOGEN,URINE 1 MG/DL (0.0-1.0)
--- NOTE | 2018-02-19 11:57 | General Progress Note ---
Assessment/Plan Problem List: (1) Pneumonia ICD Codes: J18.9 - Pneumonia, unspecified organism SNOMED: 611183777 (2) Pleural effusion ICD Codes: J90 - Pleural effusion, not elsewhere classified SNOMED: 20585569 (3) Morbid obesity ICD Codes: E66.01 - Morbid (severe) obesity due to excess calories SNOMED: 266196756 (4) Leg edema ICD Codes: R60.0 - Localized edema SNOMED: 875671172 (5) Unable to ambulate ICD Codes: R26.2 - Difficulty in walking, not elsewhere classified SNOMED: 182969917 (6) Morbid obesity ICD Codes: E66.01 - Morbid (severe) obesity due to excess calories SNOMED: 474668362 (7) Hypercapnia ICD Codes: R06.89 - Other abnormalities of breathing SNOMED: 27162145 (8) Elevated troponin ICD Codes: R74.8 - Abnormal levels of other serum enzymes SNOMED: 553647326, 002951146, 769336597 (9) Dyspnea ICD Codes: R06.00 - Dyspnea, unspecified SNOMED: 456428820 (10) CHF (congestive heart failure) ICD Codes: I50.9 - Heart failure, unspecified SNOMED: 53704431 (11) Bacteremia ICD Codes: R78.81 - Bacteremia SNOMED: 0495794 Status: stable, progressing Assessment/Plan monitor abg bipap as needed and qhs resp rx iv abx diuresis monitor labs and cxr skin/wound care pt/ot dietary eval for wt loss Subjective ROS Limited/Unobtainable: No Constitutional: Reports: malaise, weakness HEENT: Reports: no symptoms Cardiovascular: Reports: no symptoms Respiratory: Reports: no symptoms Gastrointestinal/Abdominal: Reports: no symptoms Genitourinary: Reports: no symptoms Neurologic/Psychiatric: Reports: no symptoms Endocrine: Reports: no symptoms Hematologic/Lymphatic: Reports: no symptoms Allergies: Coded Allergies: No Known Allergies (Unverified , 11/23/14) All Systems: reviewed and negative except above Subjective no complaints. denies sob. abg and labs noted. no chest pain . Objective Last 24 Hour Vital Signs Date Time Temp Pulse Resp B/P (MAP) Pulse Ox O2 Delivery O2 Flow Rate FiO2 02/19/18 10:59 85 20 98 Nasal Cannula 3.0 32 9/22/18 10:48 85 20 96 Nasal Cannula 3.0 32 02/19/18 08:00 98.6 85 113/67 (82) 20 98.6 02/19/18 08:00 85 02/19/18 08:00 Bi-pap 02/19/18 08:00 35 02/19/18 07:47 83 19 98 Bi-pap 35 02/19/18 07:27 Nasal Cannula 3.0 32 02/19/18 07:26 97 Nasal Cannula 3.0 32 02/19/18 07:25 82 20 97 Bi-pap 35 02/19/18 05:18 83 19 96 Facial 35 02/19/18 04:00 86 02/19/18 04:00 Bi-pap 02/19/18 04:00 35 02/19/18 04:00 97.8 85 20 108/55 (72) 98 97.8 02/19/18 03:21 86 21 96 Bi-pap 35 02/19/18 03:11 86 17 96 Bi-pap 35 02/19/18 03:11 86 19 96 Facial 35 02/19/18 00:47 85 19 97 Facial 35 02/19/18 00:00 84 02/19/18 00:00 97.9 79 20 111/61 (78) 99 97.9 02/19/18 00:00 35 02/19/18 00:00 Bi-pap 02/18/18 23:22 83 18 98 Bi-pap 35 02/18/18 23:12 88 23 97 Bi-pap 35 02/18/18 23:11 88 23 97 Facial 35 02/18/18 20:00 Nasal Cannula 3.0 02/18/18 20:00 98.1 87 20 102/68 (79) 95 98.1 02/18/18 20:00 86 02/18/18 20:00 3.0 02/18/18 19:16 88 20 99 Nasal Cannula 3.0 32 02/18/18 19:06 89 20 97 Nasal Cannula 3.0 32 02/18/18 19:06 97 Nasal Cannula 3.0 32 02/18/18 19:06 Nasal Cannula 3.0 32 02/18/18 16:38 75 17 115/70 (85) 96 02/18/18 16:00 81 02/18/18 16:00 Nasal Cannula 3.0 02/18/18 16:00 3.0 02/18/18 16:00 98.7 77 20 115/62 (79) 95 98.7 02/18/18 15:46 87 22 99 Bi-pap 40 02/18/18 15:36 85 22 99 Nasal Cannula 3.0 02/18/18 12:00 85 02/18/18 12:00 99.0 77 18 112/61 (78) 96 99.0 02/18/18 12:00 Nasal Cannula 3.0 02/18/18 12:00 40 Intake and Output 02/18/18 02/19/18 19:00 07:00 Intake Total 875.000 ml 578.708 ml Output Total 2200 ml 500 ml Balance -1325.000 ml 78.708 ml Intake Oral 600 ml 120 ml IV Total 275.000 ml 458.708 ml Output Urine Total 2200 ml 500 ml # Bowel Movements 1 2 Laboratory Tests 02/19/18 03:50: White Blood Count 9.8, Red Blood Count 4.99, Hemoglobin 13.0, Hematocrit 43.2, Mean Corpuscular Volume 87, Mean Corpuscular Hemoglobin 26.1L, Mean Corpuscular Hemoglobin Concent 30.1L, Red Cell Distribution Width 16.8H, Platelet Count 93L , Mean Platelet Volume 10.2H, Neutrophils (%) (Auto) , Lymphocytes (%) (Auto) , Monocytes (%) (Auto) , Eosinophils (%) (Auto) , Basophils (%) (Auto) , Differential Total Cells Counted 100, Neutrophils % (Manual) 83H, Lymphocytes % (Manual) 9L, Monocytes % (Manual) 6, Eosinophils % (Manual) 2, Basophils % ( Manual) 0, Band Neutrophils 0, Nucleated Red Blood Cells 1, Platelet Estimate DecreasedL, Platelet Morphology Normal, Polychromasia Occasional, Hypochromasia 2+, Anisocytosis 2+ 02/19/18 03:55: Sodium Level 143, Potassium Level 3.5, Chloride Level 101, Carbon Dioxide Level 41*H, Anion Gap 1L, Blood Urea Nitrogen 13, Creatinine 0.7, Estimat Glomerular Filtration Rate > 60, Glucose Level 101, Calcium Level 8.7 02/19/18 07:54: Arterial Blood pH 7.371, Arterial Blood Partial Pressure CO2 72.6*H, Arterial Blood Partial Pressure O2 79.3, Arterial Blood HCO3 41.3H, Arterial Blood Oxygen Saturation 95.5, Arterial Blood Base Excess 12.6, Renny Test Positive 02/19/18 09:05: Urine Color Brown, Urine Appearance Very cloudy, Urine pH 5, Urine Specific [place] 1.020, Urine Protein 2+H, Urine Glucose (UA) Negative, Urine Ketones 1+H , Urine Blood 4+H, Urine Nitrite PositiveH, Urine Bilirubin 2+H, Urine Ictotest Negative, Urine Urobilinogen 1H, Urine Leukocyte Esterase 1+H, Urine RBC 5-10H, Urine WBC 2-4, Urine Squamous Epithelial Cells None, Urine Amorphous Sediment ManyH, Urine Bacteria Few Height (Feet): 5 Height (Inches): 3.00 Weight (Pounds): 477 Objective General Appearance: WD/WN, alert. 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
[2018-02-19 12:00] VITALS: BP 133/76
[2018-02-19] MEDS ORDERED: Tubing IV Secondary IV ONE (13:09)
[2018-02-19] MEDS ORDERED: NS 275ml ONE ×3 (13:09→13:16)
[2018-02-19] MEDS ORDERED: D5W 550ml IV ONE (13:16)
[2018-02-19 16:00] VITALS: BP 115/61
[2018-02-19 20:00] VITALS: BP 95/45
[2018-02-19] MEDS: Dyna-Hex 2% Top Sol 2oz TOPIC SCH (21:02)
[2018-02-20] VITALS: BP 97/49
--- NOTE | 2018-02-20 02:30 | Progress Note ---
DATE: 02/18/2018 CARDIOLOGY PROGRESS NOTE Late entry for 02/18/2018. SUBJECTIVE: The patient has been extubated. She is refusing BiPAP support. OBJECTIVE: VITAL SIGNS: Blood pressure 102/53, heart rate 82, respiratory rate 17, and afebrile. Morbidly obese. LUNGS: Bilateral diminished breath sounds. HEART: Regular rhythm and rate. Normal S1, S2. ABDOMEN: Soft. EXTREMITIES: There is dependent edema. LABORATORY DATA: White count 10 and hemoglobin 13.2. Sodium 146, potassium 3.4, bicarb 40, BUN 12, and creatinine 0.7. Pro-natriuretic peptide 504. ABG, pH 7.30, pCO2, 85, and pO2 85. IMPRESSION: 1. Status post respiratory failure. 2. Acute on chronic respiratory acidosis. 3. Acute on chronic diastolic congestive heart failure. 4. Contraction alkalosis. 5. Dehydration. 6. Hypernatremia. 7. Hypokalemia. 8. Severe protein-calorie malnutrition. 9. Acute myocardial ischemia and possible non-ST elevation myocardial infarction. PLAN: 1. Close monitoring of respiratory parameters. 2. Cautious diuresis. 3. Free water replacement. 4. Antimicrobials per Infectious Disease wine consultant. 5. Consider acetazolamide to stimulate respiratory drive. 6. DVT prophylaxis. 7. Remains high risk. Niko Seymour M.D. DR: FRANCESCO JOB#: [id number] CC:
--- NOTE | 2018-02-20 03:00 | Progress Note ---
DATE: 02/19/2018 CARDIOLOGY PROGRESS NOTE SUBJECTIVE: The patient remains on BiPAP support at night. She is alert with no distress. OBJECTIVE: VITAL SIGNS: Blood pressure 108/55, pulse 85, and respiratory rate 20. LUNGS: Diminished breath sounds. HEART: Regular rhythm and rate. Normal S1, S2. ABDOMEN: Obese. EXTREMITIES: With mostly nonpitting edema, now stasis derm changes. LABORATORY AND DIAGNOSTIC DATA: Sodium 143, potassium 3.5, bicarb 41, BUN 13, creatinine 0.7. ABG, pH 7.37, pCO2 72, and pO2 79. White count 9.8 and hemoglobin 13. IMPRESSION: 1. Status post respiratory failure. 2. Acute on chronic respiratory acidosis, now compensated. 3. Acute on chronic diastolic congestive heart failure, now compensated. 4. Contraction alkalosis. 5. Pneumonia. 6. Morbid obesity. 7. Rehydrated with corrected sodium level. PLAN: 1. Transition to oral diuretic. 2. Add Diamox to stimulate respiratory drive and correct alkalosis. 3. DVT prophylaxis. 4. Respiratory hygiene. Remains high risk for respiratory failure. Niko Seymour M.D. DR: MARVEL JOB#: [id number] CC:
[2018-02-20] MEDS: Albuterol ud Inhalation HHN SCH ×5 (03:14→23:20)
[2018-02-20 04:00] VITALS: BP 95/47
[2018-02-20 05:20] LABS: ALANINE AMINOTRANSFERASE 18 U/L (12-78); ALBUMIN 2.6 G/DL (3.4-5.0); ALBUMIN/GLOBULIN RATIO 0.6 (1.0-2.7); ALKALINE PHOSPHATASE 63 U/L (46-116); ANION GAP -1 mmol/L (5-15); ASPARTATE AMINO TRANSFERASE 17 U/L (15-37); BILIRUBIN,TOTAL 2.2 MG/DL (0.2-1.0); BLOOD UREA NITROGEN 15 mg/dL (7-18); CALCIUM 8.7 MG/DL (8.5-10.1); CHLORIDE 100 MMOL/L (98-107); CREATININE 0.7 MG/DL (0.55-1.30); POTASSIUM 3.3 MMOL/L (3.5-5.1); SODIUM 141 MMOL/L (136-145)
[2018-02-20 05:31] LABS: CARBON DIOXIDE 42 MMOL/L (21-32)
[2018-02-20 05:32] LABS: BILIRUBIN,DIRECT 0.4 MG/DL (0.0-0.3)
[2018-02-20] MEDS: Vancomycin 1gm/D5W 275ml IVPB SCH ×2 (06:05)
[2018-02-20] MEDS ORDERED: Morphine Sulfate 10mg/ml Inj IVP PRN (06:30)
[2018-02-20] MEDS ORDERED: Bisacodyl EC 5mg tab ORAL PRN (06:41)
[2018-02-20] MEDS ORDERED: Milk of Magnesia 30ml Ud ORAL PRN (06:42)
[2018-02-20 08:00] VITALS: BP 98/44
[2018-02-20] MEDS ORDERED: Morphine Sulfate 2mg/ml Inj IVP PRN (08:00)
[2018-02-20] MEDS ORDERED: Morphine Sulfate 4mg/ml Inj (IV USE ONLY) IVP PRN (08:00)
[2018-02-20] MEDS ORDERED: LORazepam Inj 2mg/ml 1ml IV PRN (08:00)
[2018-02-20] MEDS: Heparin 5000 units/ml inj SUBQ SCH ×2 (08:29→20:30)
[2018-02-20] MEDS ORDERED: Furosemide 40mg tab ORAL SCH ×2 (09:00)
[2018-02-20] MEDS ORDERED: NS 275ml ONE (09:13)
--- NOTE | 2018-02-20 10:22 | General Progress Note ---
Assessment/Plan Problem List: (1) Pneumonia ICD Codes: J18.9 - Pneumonia, unspecified organism SNOMED: 678223321 (2) Pleural effusion ICD Codes: J90 - Pleural effusion, not elsewhere classified SNOMED: 45830876 (3) Morbid obesity ICD Codes: E66.01 - Morbid (severe) obesity due to excess calories SNOMED: 475651969 (4) Leg edema ICD Codes: R60.0 - Localized edema SNOMED: 391742249 (5) Unable to ambulate ICD Codes: R26.2 - Difficulty in walking, not elsewhere classified SNOMED: 208420476 (6) Morbid obesity ICD Codes: E66.01 - Morbid (severe) obesity due to excess calories SNOMED: 417063349 (7) Hypercapnia ICD Codes: R06.89 - Other abnormalities of breathing SNOMED: 67062027 (8) Elevated troponin ICD Codes: R74.8 - Abnormal levels of other serum enzymes SNOMED: 142205065, 998945360, 237336412 (9) Dyspnea ICD Codes: R06.00 - Dyspnea, unspecified SNOMED: 547312711 (10) CHF (congestive heart failure) ICD Codes: I50.9 - Heart failure, unspecified SNOMED: 85241477 (11) Bacteremia ICD Codes: R78.81 - Bacteremia SNOMED: 1569831 Status: stable Assessment/Plan monitor abg bipap as needed and qhs diamox resp rx iv abx diuresis pain rx monitor labs and cxr skin/wound care pt/ot dietary eval for wt loss Subjective ROS Limited/Unobtainable: No Constitutional: Reports: malaise, weakness HEENT: Reports: no symptoms Cardiovascular: Reports: no symptoms Respiratory: Reports: no symptoms Gastrointestinal/Abdominal: Reports: no symptoms Genitourinary: Reports: no symptoms Neurologic/Psychiatric: Reports: pre-existing deficit Endocrine: Reports: no symptoms Hematologic/Lymphatic: Reports: no symptoms Allergies: Coded Allergies: No Known Allergies (Unverified , 11/23/14) All Systems: reviewed and negative except above Subjective no complaints. denies sob. abg and labs noted. no chest pain. low k noted on labs. on diamox. IV pain rx refusing diabetic diet Objective Last 24 Hour Vital Signs Date Time Temp Pulse Resp B/P (MAP) Pulse Ox O2 Delivery O2 Flow Rate FiO2 02/20/18 08:00 Nasal Cannula 3.0 02/20/18 08:00 98.8 81 18 98/44 (62) 95 98.8 02/20/18 08:00 72 02/20/18 08:00 3.0 02/20/18 07:41 71 16 98 Nasal Cannula 3.0 32 02/20/18 07:31 Nasal Cannula 3.0 32 02/20/18 07:31 69 16 97 Nasal Cannula 3.0 32 02/20/18 07:28 96 Nasal Cannula 3.0 32 02/20/18 05:10 69 19 95 Facial 35 02/20/18 04:00 76 02/20/18 04:00 97.2 72 18 95/47 (63) 98 97.2 02/20/18 04:00 Bi-pap 02/20/18 04:00 35 02/20/18 03:24 68 18 96 Bi-pap 35 02/20/18 03:23 68 19 Bi-pap 35 02/20/18 03:14 66 16 96 Facial 35 02/20/18 03:14 66 16 96 Bi-pap 35 02/20/18 01:00 68 18 97 Facial 35 02/20/18 00:00 Bi-pap 02/20/18 00:00 75 02/20/18 00:00 35 02/20/18 00:00 98.8 76 18 97/49 (65) 99 98.8 02/19/18 22:42 73 19 97 Bi-pap 35 02/19/18 22:32 71 19 95 Facial 35 02/19/18 22:32 71 17 95 Bi-pap 35 02/19/18 21:33 99.8 02/19/18 21:03 101.7 02/19/18 20:56 62 19 95 Facial 35 02/19/18 20:41 35 02/19/18 20:00 Bi-pap 02/19/18 20:00 80 02/19/18 20:00 101.7 84 18 95/45 (62) 94 101.7 02/19/18 19:07 53 18 99 Nasal Cannula 3.0 32 02/19/18 18:57 97 Nasal Cannula 3.0 32 02/19/18 18:57 51 18 97 Nasal Cannula 3.0 32 02/19/18 18:57 Nasal Cannula 3.0 32 02/19/18 16:00 Bi-pap 02/19/18 16:00 82 02/19/18 16:00 98.5 92 115/61 (79) 20 98.5 02/19/18 16:00 35 02/19/18 15:22 86 20 99 Nasal Cannula 3.0 32 02/19/18 15:07 83 18 97 Nasal Cannula 3.0 32 02/19/18 12:00 83 02/19/18 12:00 Bi-pap 02/19/18 12:00 35 02/19/18 12:00 98.6 91 133/76 (95) 20 98.6 02/19/18 10:59 85 20 98 Nasal Cannula 3.0 32 02/19/18 10:48 85 20 96 Nasal Cannula 3.0 32 Intake and Output 02/19/18 02/20/18 19:00 07:00 Intake Total 858.708 ml 475.000 ml Output Total 1400 ml 400 ml Balance -541.292 ml 75.000 ml Intake Oral 400 ml 200 ml IV Total 458.708 ml 275.000 ml Output Urine Total 1400 ml 400 ml Laboratory Tests 02/20/18 03:40: Sodium Level 141, Potassium Level 3.3L, Chloride Level 100, Carbon Dioxide Level 42*H, Anion Gap -1L, Blood Urea Nitrogen 15, Creatinine 0.7, Estimat Glomerular Filtration Rate > 60, Glucose Level 106, Calcium Level 8.7, Magnesium Level 1.8, Total Bilirubin 2.2H, Direct Bilirubin 0.4H, Aspartate Amino Transf (AST/SGOT) 17, Alanine Aminotransferase (ALT/SGPT) 18, Alkaline Phosphatase 63, Pro-B-Type Natriuretic Peptide 360H, Total Protein 6.7, Albumin 2.6L, Globulin 4.1, Albumin/Globulin Ratio 0.6L 02/20/18 09:02: Arterial Blood pH 7.419, Arterial Blood Partial Pressure CO2 64.3*H, Arterial Blood Partial Pressure O2 77.2, Arterial Blood HCO3 40.7H, Arterial Blood Oxygen Saturation 95.5, Arterial Blood Base Excess 13.4, Renny Test Positive Height (Feet): 5 Height (Inches): 3.00 Weight (Pounds): 477 Objective General Appearance: WD/WN, alert. morbidly obese Neck: supple Cardiovascular: normal rate, regular rhythm Respiratory/Chest: chest wall non-tender, lungs clear, normal breath sounds Abdomen: normal bowel sounds, non tender, soft, no organomegaly, no mass Edema: moderate edema Neurologic: telephoto engineer II-XII grossly normal, alert Michael Baez MD Feb 20, 2018 10:22
[2018-02-20 11:31] VITALS: BP 92/47
--- NOTE | 2018-02-20 13:33 | Infectious Diseases Prog Note ---
Assessment/Plan Assessment/Plan A; Sepsis Hypercapnic respiratory failure Asthma/COPD morbid obesity PEBBLES Diastolic CHF Positive blood culture, likely contamination MRSA colonization P; Continue Vancomycin Subjective ROS Limited/Unobtainable: No Constitutional: Reports: no symptoms Respiratory: Reports: no symptoms Gastrointestinal/Abdominal: Reports: no symptoms Genitourinary: Reports: no symptoms Allergies: Coded Allergies: No Known Allergies (Unverified , 11/23/14) Objective Vital Signs Last 24 Hour Vital Signs Date Time Temp Pulse Resp B/P (MAP) Pulse Ox O2 Delivery O2 Flow Rate FiO2 02/20/18 12:00 Nasal Cannula 3.0 02/20/18 11:34 82 16 99 Nasal Cannula 3.0 32 02/20/18 11:31 98.9 81 18 92/47 (62) 98 98.9 02/20/18 11:23 80 16 98 02/20/18 08:00 Nasal Cannula 3.0 02/20/18 08:00 98.8 81 18 98/44 (62) 95 98.8 02/20/18 08:00 72 02/20/18 08:00 3.0 02/20/18 07:41 71 16 98 Nasal Cannula 3.0 32 02/20/18 07:31 Nasal Cannula 3.0 32 02/20/18 07:31 69 16 97 Nasal Cannula 3.0 32 02/20/18 07:28 96 Nasal Cannula 3.0 32 02/20/18 05:10 69 19 95 Facial 35 02/20/18 04:00 76 02/20/18 04:00 97.2 72 18 95/47 (63) 98 97.2 02/20/18 04:00 Bi-pap 02/20/18 04:00 35 02/20/18 03:24 68 18 96 Bi-pap 35 02/20/18 03:23 68 19 Bi-pap 35 02/20/18 03:14 66 16 96 Facial 35 02/20/18 03:14 66 16 96 Bi-pap 35 02/20/18 01:00 68 18 97 Facial 35 02/20/18 00:00 Bi-pap 02/20/18 00:00 75 02/20/18 00:00 35 02/20/18 00:00 98.8 76 18 97/49 (65) 99 98.8 02/19/18 22:42 73 19 97 Bi-pap 35 02/19/18 22:32 71 19 95 Facial 35 02/19/18 22:32 71 17 95 Bi-pap 35 02/19/18 21:33 99.8 02/19/18 21:03 101.7 02/19/18 20:56 62 19 95 Facial 35 02/19/18 20:41 35 02/19/18 20:00 Bi-pap 02/19/18 20:00 80 02/19/18 20:00 101.7 84 18 95/45 (62) 94 101.7 02/19/18 19:07 53 18 99 Nasal Cannula 3.0 32 02/19/18 18:57 97 Nasal Cannula 3.0 32 02/19/18 18:57 51 18 97 Nasal Cannula 3.0 32 02/19/18 18:57 Nasal Cannula 3.0 32 02/19/18 16:00 Bi-pap 02/19/18 16:00 82 02/19/18 16:00 98.5 92 115/61 (79) 20 98.5 02/19/18 16:00 35 02/19/18 15:22 86 20 99 Nasal Cannula 3.0 32 02/19/18 15:07 83 18 97 Nasal Cannula 3.0 32 Height (Feet): 5 Height (Inches): 3.00 Weight (Pounds): 477 General Appearance: no acute distress HEENT: mucous membranes moist Respiratory/Chest: lungs clear Cardiovascular: normal rate Abdomen: soft, non tender Extremities: no edema Neurologic/Psychiatric: alert, oriented x 3, responsive Microbiology Date/Time Source Procedure Growth Status 02/19/18 09:05 Urine,Clean Catch Urine Culture - Preliminary NO GROWTH Resulted Laboratory Tests Test 02/20/18 03:40 02/20/18 09:02 Sodium Level 141 MMOL/L (136-145) Potassium Level 3.3 MMOL/L (3.5-5.1) L Chloride Level 100 MMOL/L (98-107) Carbon Dioxide Level 42 MMOL/L (21-32) *H Anion Gap -1 mmol/L (5-15) L Blood Urea Nitrogen 15 mg/dL (7-18) Creatinine 0.7 MG/DL (0.55-1.30) Estimat Glomerular Filtration Rate > 60 mL/min (>60) Glucose Level 106 MG/DL (74-106) Calcium Level 8.7 MG/DL (8.5-10.1) Magnesium Level 1.8 MG/DL (1.8-2.4) Total Bilirubin 2.2 MG/DL (0.2-1.0) H Direct Bilirubin 0.4 MG/DL (0.0-0.3) H Aspartate Amino Transf (AST/SGOT) 17 U/L (15-37) Alanine Aminotransferase (ALT/SGPT) 18 U/L (12-78) Alkaline Phosphatase 63 U/L (46-116) Pro-B-Type Natriuretic Peptide 360 pg/mL (0-125) H Total Protein 6.7 G/DL (6.4-8.2) Albumin 2.6 G/DL (3.4-5.0) L Globulin 4.1 g/dL Albumin/Globulin Ratio 0.6 (1.0-2.7) L Arterial Blood pH 7.419 (7.350-7.450) Arterial Blood Partial Pressure CO2 64.3 mmHg (35.0-45.0) *H Arterial Blood Partial Pressure O2 77.2 mmHg (75.0-100.0) Arterial Blood HCO3 40.7 mmol/L (22.0-26.0) H Arterial Blood Oxygen Saturation 95.5 % (92.0-98.0) Arterial Blood Base Excess 13.4 Renny Test Positive Current Medications Medications (Trade) Dose Ordered Sig/Hermelinda Route PRN Reason Start Time Stop Time Status Last Admin Dose Admin Acetaminophen (Tylenol) 650 mg Q4H PRN ORAL Mild Pain/Temp > 100.5 02/20/18 07:00 03/17/18 10:59 02/20/18 09:06 Acetazolamide (Diamox) 250 mg TWICE A DAY ORAL 02/20/18 09:00 03/22/18 08:59 02/20/18 08:58 Albuterol Sulfate (Proventil) 2.5 mg Q4HRT HHN 02/20/18 07:00 02/20/18 14:59 02/20/18 11:25 Bisacodyl (Dulcolax) 5 mg DAILYPRN PRN ORAL Constipation 02/20/18 06:41 03/20/18 06:40 Chlorhexidine Gluconate (Helene-Hex 2%) 1 applic DAILY@1999 TOPIC 02/20/18 20:00 03/17/18 19:59 Clotrimazole (Lotrimin) 1 applic EVERY 12 HOURS TOPIC 02/20/18 09:00 03/20/18 20:59 02/20/18 08:59 Furosemide (Lasix) 40 mg DAILY ORAL 02/20/18 09:00 03/22/18 08:59 02/20/18 08:58 Heparin Sodium (Porcine) (Heparin 5000 units/ml) 5,000 units EVERY 12 HOURS SUBQ 02/20/18 09:00 03/17/18 20:59 Lorazepam (Ativan 2mg/ml 1ml) 2 mg Q2H PRN IV For Anxiety 02/20/18 08:00 02/22/18 13:59 Magnesium Hydroxide (Mom) 30 ml DAILYPRN PRN ORAL Constipation 02/20/18 06:42 03/17/18 06:41 Morphine Sulfate (Morphine Sulfate) 2 mg Q3H PRN IVP for mild pain (1-3) 02/20/18 08:00 02/22/18 10:59 Morphine Sulfate (Morphine Sulfate) 4 mg Q3H PRN IVP For moderate pain (4-6) 02/20/18 08:00 02/22/18 10:59 Morphine Sulfate (Morphine Sulfate) 6 mg Q3H PRN IVP for severe pain (7-10) 02/20/18 06:30 02/22/18 12:29 Potassium Chloride 100 ml @ 50 mls/hr Q2H IVPB 02/20/18 11:00 02/20/18 14:59 02/20/18 12:45 Vancomycin HCl (Vanco rx to dose) 1 ea DAILY PRN MISC Per rx protocol 02/20/18 09:00 03/20/18 10:59 Vancomycin HCl 1 gm/Dextrose 275 ml @ 183.708 mls/hr Q8HR IVPB 02/20/18 14:00 02/23/18 13:59 Rj Sands MD Feb 20, 2018 13:33
[2018-02-20] MEDS: Vancomycin 1 GM in D5W 275 ML IVPB SCH ×2 (14:49→22:16)
[2018-02-20] MEDS ORDERED: Tubing IV Secondary IV ONE (14:55)
--- NOTE | 2018-02-20 15:09 | Critical Care Progress Note ---
Assessment/Plan Assessment/Plan 1. Acute on chronic respiratory failure. 2. Severe hypoxemic respiratory failure. 3. Leukocytosis. 4. Possible sepsis. 5. Evidence of elevated hemoglobin and hematocrit. 6. Possible secondary polycythemia. 7. Evidence of acute renal failure. 8. Possible demand ischemia. 9. Hypertension. 10. Asthma per history. 11. Possible pulmonary edema. 12. Bacteremia PLAN keep negative watch lytes trilogy with chronic respiratory failure and chronic co2 retention PRn and nighttime BIPAP while in the hospital supportive care ID noted cards noted wants to go home on dc and not snf PT evaluation medications/laboratory data/nursing notes reviewed in detail note reviewed and edited care discussed with RN and RT Critical Care - Subjective ROS Limited/Unobtainable: Yes Condition: improving EKG Rhythm: Sinus Rhythm I&O: Intake and Output 02/19/18 02/20/18 19:00 07:00 Intake Total 858.708 ml 475.000 ml Output Total 1400 ml 400 ml Balance -541.292 ml 75.000 ml Intake Oral 400 ml 200 ml IV Total 458.708 ml 275.000 ml Output Urine Total 1400 ml 400 ml Critical Care - Objective ET-Tube: 7.0 ET Position: 24 Last 24 Hour Vital Signs Date Time Temp Pulse Resp B/P (MAP) Pulse Ox O2 Delivery O2 Flow Rate FiO2 02/20/18 12:00 3.0 02/20/18 12:00 83 02/20/18 12:00 Nasal Cannula 3.0 02/20/18 11:34 82 16 99 Nasal Cannula 3.0 32 02/20/18 11:31 98.9 81 18 92/47 (62) 98 98.9 02/20/18 11:23 80 16 98 02/20/18 08:00 Nasal Cannula 3.0 02/20/18 08:00 98.8 81 18 98/44 (62) 95 98.8 02/20/18 08:00 72 02/20/18 08:00 3.0 02/20/18 07:41 71 16 98 Nasal Cannula 3.0 32 02/20/18 07:31 Nasal Cannula 3.0 32 02/20/18 07:31 69 16 97 Nasal Cannula 3.0 32 02/20/18 07:28 96 Nasal Cannula 3.0 32 02/20/18 05:10 69 19 95 Facial 35 02/20/18 04:00 76 02/20/18 04:00 97.2 72 18 95/47 (63) 98 97.2 02/20/18 04:00 Bi-pap 02/20/18 04:00 35 02/20/18 03:24 68 18 96 Bi-pap 35 02/20/18 03:23 68 19 Bi-pap 35 02/20/18 03:14 66 16 96 Facial 35 02/20/18 03:14 66 16 96 Bi-pap 35 02/20/18 01:00 68 18 97 Facial 35 02/20/18 00:00 Bi-pap 02/20/18 00:00 75 02/20/18 00:00 35 02/20/18 00:00 98.8 76 18 97/49 (65) 99 98.8 02/19/18 22:42 73 19 97 Bi-pap 35 02/19/18 22:32 71 19 95 Facial 35 02/19/18 22:32 71 17 95 Bi-pap 35 02/19/18 21:33 99.8 02/19/18 21:03 101.7 02/19/18 20:56 62 19 95 Facial 35 02/19/18 20:41 35 02/19/18 20:00 Bi-pap 02/19/18 20:00 80 02/19/18 20:00 101.7 84 18 95/45 (62) 94 101.7 02/19/18 19:07 53 18 99 Nasal Cannula 3.0 32 02/19/18 18:57 97 Nasal Cannula 3.0 32 02/19/18 18:57 51 18 97 Nasal Cannula 3.0 32 02/19/18 18:57 Nasal Cannula 3.0 32 02/19/18 16:00 Bi-pap 02/19/18 16:00 82 02/19/18 16:00 98.5 92 115/61 (79) 20 98.5 02/19/18 16:00 35 02/19/18 15:22 86 20 99 Nasal Cannula 3.0 32 Labs: Labs Test 02/18/18 04:00 02/18/18 07:40 02/19/18 03:50 02/19/18 03:55 White Blood Count 10.0 K/UL (4.8-10.8) 9.8 K/UL (4.8-10.8) Red Blood Count 4.99 M/UL (4.20-5.40) 4.99 M/UL (4.20-5.40) Hemoglobin 13.2 G/DL (12.0-16.0) 13.0 G/DL (12.0-16.0) Hematocrit 42.4 % (37.0-47.0) 43.2 % (37.0-47.0) Mean Corpuscular Volume 85 FL (80-99) 87 FL (80-99) Mean Corpuscular Hemoglobin 26.4 PG (27.0-31.0) 26.1 PG (27.0-31.0) Mean Corpuscular Hemoglobin Concent 31.1 G/DL (32.0-36.0) 30.1 G/DL (32.0-36.0) Red Cell Distribution Width 16.6 % (11.6-14.8) 16.8 % (11.6-14.8) Platelet Count 93 K/UL (150-450) 93 K/UL (150-450) Mean Platelet Volume 10.1 FL (6.5-10.1) 10.2 FL (6.5-10.1) Neutrophils (%) (Auto) % (45.0-75.0) % (45.0-75.0) Lymphocytes (%) (Auto) % (20.0-45.0) % (20.0-45.0) Monocytes (%) (Auto) % (1.0-10.0) % (1.0-10.0) Eosinophils (%) (Auto) % (0.0-3.0) % (0.0-3.0) Basophils (%) (Auto) % (0.0-2.0) % (0.0-2.0) Differential Total Cells Counted 100 100 Neutrophils % (Manual) 80 % (45-75) 83 % (45-75) Lymphocytes % (Manual) 14 % (20-45) 9 % (20-45) Monocytes % (Manual) 6 % (1-10) 6 % (1-10) Eosinophils % (Manual) 0 % (0-3) 2 % (0-3) Basophils % (Manual) 0 % (0-2) 0 % (0-2) Band Neutrophils 0 % (0-8) 0 % (0-8) Platelet Estimate Decreased Decreased Platelet Morphology Normal Normal Hypochromasia 1+ 2+ Anisocytosis 1+ 2+ Sodium Level 146 MMOL/L (136-145) 143 MMOL/L (136-145) Potassium Level 3.4 MMOL/L (3.5-5.1) 3.5 MMOL/L (3.5-5.1) Chloride Level 104 MMOL/L (98-107) 101 MMOL/L (98-107) Carbon Dioxide Level 40 MMOL/L (21-32) 41 MMOL/L (21-32) Anion Gap 2 mmol/L (5-15) 1 mmol/L (5-15) Blood Urea Nitrogen 12 mg/dL (7-18) 13 mg/dL (7-18) Creatinine 0.7 MG/DL (0.55-1.30) 0.7 MG/DL (0.55-1.30) Estimat Glomerular Filtration Rate > 60 mL/min (>60) > 60 mL/min (>60) Glucose Level 96 MG/DL (74-106) 101 MG/DL (74-106) Calcium Level 8.1 MG/DL (8.5-10.1) 8.7 MG/DL (8.5-10.1) Magnesium Level 1.8 MG/DL (1.8-2.4) Total Bilirubin 3.7 MG/DL (0.2-1.0) Direct Bilirubin 0.9 MG/DL (0.0-0.3) Aspartate Amino Transf (AST/SGOT) 18 U/L (15-37) Alanine Aminotransferase (ALT/SGPT) 16 U/L (12-78) Alkaline Phosphatase 58 U/L (46-116) Pro-B-Type Natriuretic Peptide 504 pg/mL (0-125) Total Protein 6.3 G/DL (6.4-8.2) Albumin 2.4 G/DL (3.4-5.0) Globulin 3.9 g/dL Albumin/Globulin Ratio 0.6 (1.0-2.7) Arterial Blood pH 7.300 (7.350-7.450) Arterial Blood Partial Pressure CO2 85.5 mmHg (35.0-45.0) Arterial Blood Partial Pressure O2 85.3 mmHg (75.0-100.0) Arterial Blood HCO3 41.1 mmol/L (22.0-26.0) Arterial Blood Oxygen Saturation 95.4 % (92.0-98.0) Arterial Blood Base Excess 11.0 Renny Test Positive Nucleated Red Blood Cells 1 /100 WBC Polychromasia Occasional Test 02/19/18 07:54 02/19/18 09:05 02/20/18 03:40 02/20/18 09:02 Arterial Blood pH 7.371 (7.350-7.450) 7.419 (7.350-7.450) Arterial Blood Partial Pressure CO2 72.6 mmHg (35.0-45.0) 64.3 mmHg (35.0-45.0) Arterial Blood Partial Pressure O2 79.3 mmHg (75.0-100.0) 77.2 mmHg (75.0-100.0) Arterial Blood HCO3 41.3 mmol/L (22.0-26.0) 40.7 mmol/L (22.0-26.0) Arterial Blood Oxygen Saturation 95.5 % (92.0-98.0) 95.5 % (92.0-98.0) Arterial Blood Base Excess 12.6 13.4 Renny Test Positive Positive Urine Color Brown Urine Appearance Very cloudy Urine pH 5 (4.5-8.0) Urine Specific [place] 1.020 (1.005-1.035) Urine Protein 2+ (NEGATIVE) Urine Glucose (UA) Negative (NEGATIVE) Urine Ketones 1+ (NEGATIVE) Urine Blood 4+ (NEGATIVE) Urine Nitrite Positive (NEGATIVE) Urine Bilirubin 2+ (NEGATIVE) Urine Ictotest Negative (NEGATIVE) Urine Urobilinogen 1 MG/DL (0.0-1.0) Urine Leukocyte Esterase 1+ (NEGATIVE) Urine RBC 5-10 /HPF (0 - 2) Urine WBC 2-4 /HPF (0 - 2) Urine Squamous Epithelial Cells None /LPF (NONE/OCC) Urine Amorphous Sediment Many /LPF (NONE) Urine Bacteria Few /HPF (NONE) Sodium Level 141 MMOL/L (136-145) Potassium Level 3.3 MMOL/L (3.5-5.1) Chloride Level 100 MMOL/L (98-107) Carbon Dioxide Level 42 MMOL/L (21-32) Anion Gap -1 mmol/L (5-15) Blood Urea Nitrogen 15 mg/dL (7-18) Creatinine 0.7 MG/DL (0.55-1.30) Estimat Glomerular Filtration Rate > 60 mL/min (>60) Glucose Level 106 MG/DL (74-106) Calcium Level 8.7 MG/DL (8.5-10.1) Magnesium Level 1.8 MG/DL (1.8-2.4) Total Bilirubin 2.2 MG/DL (0.2-1.0) Direct Bilirubin 0.4 MG/DL (0.0-0.3) Aspartate Amino Transf (AST/SGOT) 17 U/L (15-37) Alanine Aminotransferase (ALT/SGPT) 18 U/L (12-78) Alkaline Phosphatase 63 U/L (46-116) Pro-B-Type Natriuretic Peptide 360 pg/mL (0-125) Total Protein 6.7 G/DL (6.4-8.2) Albumin 2.6 G/DL (3.4-5.0) Globulin 4.1 g/dL Albumin/Globulin Ratio 0.6 (1.0-2.7) Objective: WDWN on oxygen and alert morbidly obese reduced breath sounds bilaterally without rhonchi or wheeze [id number] without MRG NABS nontender no distention; obese no CC chronic skin changes and edema somewhat improved nonfocal but weak Micro: Microbiology Date/Time Source Procedure Growth Status 02/19/18 09:05 Urine,Clean Catch Urine Culture - Preliminary NO GROWTH Resulted Kurtis Vazquez MD Feb 20, 2018 15:09
[2018-02-20 15:52] VITALS: BP 98/49
[2018-02-20 20:00] VITALS: BP 105/49
[2018-02-20] MEDS: Dyna-Hex 2% Top Sol 2oz TOPIC SCH (20:00)
--- NOTE | 2018-02-20 20:27 | Diagnostic Imaging Report ---
APPROVED REPORT CPT Code: 17746 Present Symptoms Lower Extremity Pain: Bilateral Lower Extremity Edema: Bilateral Comments: technically difficult and limited study due to body habitus. BILATERAL: Imaging reveals a patent deep venous system bilaterally. There is no evidence of thrombus within the Common and Superficial femoral veins. Doppler indicates normal spontaneous flow within these segments. Remaining segments, the popliteal veins, calf veins, and greater shaphenous veins were not able to access because of body habitus.
[2018-02-21] VITALS: BP 98/56
--- NOTE | 2018-02-21 01:30 | Progress Note ---
DATE: 02/20/2018 CARDIOLOGY PROGRESS NOTE SUBJECTIVE: The patient is extubated, comfortable, and in no distress. She used BiPAP last evening. It was made aware that she may need such a device at home in the future, she . The patient now recalls taking 10 mg of Lasix daily for most a while at home. She is not aware of any potassium levels being checked at home. OBJECTIVE: VITAL SIGNS: Blood pressure 98/44, pulse 81, respiratory rate 18, and afebrile. LUNGS: Diminished breath sounds. HEART: Regular rhythm and rate. Normal S1 and S2. ABDOMEN: Obese. EXTREMITIES: With trace dependent edema. LABORATORY AND DIAGNOSTIC DATA: Sodium is 141, potassium 3.3, bicarbonate 42, BUN 15, and creatinine 0.7. Albumin 2.6. ABG, pH 7.42, pCO2 64, and pO2 77. IMPRESSION: 1. Acute on chronic respiratory acidosis, now resolved. 2. Obesity hypoventilation with chronic respiratory acidosis. 3. Acute on chronic diastolic congestive heart failure. 4. Contraction alkalosis. 5. Healthcare-acquired pneumonia. 6. Sepsis with shock, recovering. 7. Secondary polycythemia. PLAN: 1. Titrate maintenance diuretic dose. 2. Continue Diamox to help stimulate respiratory drive. 3. DVT prophylaxis. 4. Monitor volume status and acid-base parameters. Niko Seymour M.D. DR: STEPHANIE JOB#: [id number] CC:
[2018-02-21] MEDS: Albuterol ud Inhalation HHN SCH ×6 (02:55→23:29)
[2018-02-21 04:00] VITALS: BP 101/58
[2018-02-21 05:22] LABS: HEMATOCRIT 41.4 % (37.0-47.0); HEMOGLOBIN 12.5 G/DL (12.0-16.0); MEAN CORPUSCULAR VOLUME 86 FL (80-99); PLATELET COUNT 95 K/UL (150-450); RED BLOOD COUNT 4.79 M/UL (4.20-5.40); WHITE BLOOD COUNT 7.7 K/UL (4.8-10.8)
[2018-02-21] MEDS: Vancomycin 1 GM in D5W 275 ML IVPB SCH ×2 (06:00→17:05)
[2018-02-21 06:05] LABS: ALANINE AMINOTRANSFERASE 24 U/L (12-78); ALBUMIN 2.6 G/DL (3.4-5.0); ALBUMIN/GLOBULIN RATIO 0.6 (1.0-2.7); ALKALINE PHOSPHATASE 61 U/L (46-116); ANION GAP -1 mmol/L (5-15); ASPARTATE AMINO TRANSFERASE 23 U/L (15-37); BILIRUBIN,TOTAL 1.4 MG/DL (0.2-1.0); BLOOD UREA NITROGEN 11 mg/dL (7-18); CALCIUM 8.7 MG/DL (8.5-10.1); CARBON DIOXIDE 37 MMOL/L (21-32); CHLORIDE 103 MMOL/L (98-107); CREATININE 0.6 MG/DL (0.55-1.30); POTASSIUM 3.6 MMOL/L (3.5-5.1); SODIUM 139 MMOL/L (136-145)
[2018-02-21 06:42] LABS: BILIRUBIN,DIRECT 0.3 MG/DL (0.0-0.3)
[2018-02-21 08:00] VITALS: BP 92/44
[2018-02-21] MEDS: Heparin 5000 units/ml inj SUBQ SCH ×2 (08:43→21:00)
--- NOTE | 2018-02-21 11:12 | Infectious Diseases Prog Note ---
"Assessment/Plan Assessment/Plan antibiotics : iv vancomycin A 1. staph aureus pneumonia 2. respiratory failure resolved 3. blood cultures with coag neg staph | diphtheroids likely contaminated 4. MRSA nasal colonization 5. hypertension 6. obesity P 1. continue iv vancomycin 3 more days 2. will follow up cultures Subjective Constitutional: Denies: fever, chills Respiratory: Reports: productive cough; Denies: shortness of breath Gastrointestinal/Abdominal: Denies: nausea, vomiting, diarrhea Musculoskeletal: Denies: pain Allergies: Coded Allergies: No Known Allergies (Unverified , 11/23/14) Objective Vital Signs Last 24 Hour Vital Signs Date Time Temp Pulse Resp B/P (MAP) Pulse Ox O2 Delivery O2 Flow Rate FiO2 02/21/18 08:00 98.6 78 18 92/44 (60) 98 98.6 02/21/18 08:00 Nasal Cannula 3.0 02/21/18 08:00 79 02/21/18 08:00 3.0 02/21/18 07:37 77 18 99 Nasal Cannula 3.0 32 02/21/18 07:32 97 Nasal Cannula 3.0 32 02/21/18 07:32 Nasal Cannula 3.0 32 02/21/18 07:29 73 18 97 Nasal Cannula 3.0 32 02/21/18 04:00 98.2 80 16 101/58 (72) 99 98.2 02/21/18 04:00 35 02/21/18 04:00 72 02/21/18 04:00 Nasal Cannula 3.0 02/21/18 03:06 79 17 96 Bi-pap 35 02/21/18 02:56 65 17 95 Bi-pap 35 02/21/18 02:55 65 17 96 Facial 35 02/21/18 01:06 69 17 97 Facial 35 02/21/18 00:00 73 02/21/18 00:00 Nasal Cannula 3.0 02/21/18 00:00 98.5 73 16 98/56 (70) 100 98.5 02/20/18 23:35 84 17 97 Bi-pap 35 02/20/18 23:20 82 19 96 Bi-pap 35 02/20/18 23:08 72 18 97 Facial 35 02/20/18 23:00 35 02/20/18 20:00 3.0 02/20/18 20:00 98.4 82 18 105/49 (67) 97 98.4 02/20/18 20:00 80 02/20/18 20:00 Nasal Cannula 3.0 02/20/18 18:53 79 16 97 Nasal Cannula 3.0 32 02/20/18 18:50 Nasal Cannula 3.0 32 02/20/18 18:49 92 Nasal Cannula 3.0 32 02/20/18 18:46 77 16 92 Nasal Cannula 3.0 32 02/20/18 16:00 Nasal Cannula 3.0 02/20/18 16:00 3.0 02/20/18 16:00 81 02/20/18 15:55 80 16 99 Nasal Cannula 3.0 32 02/20/18 15:52 98.9 79 18 98/49 (65) 97 98.9 02/20/18 15:52 76 16 97 Nasal Cannula 3.0 32 02/20/18 12:00 3.0 02/20/18 12:00 83 02/20/18 12:00 Nasal Cannula 3.0 02/20/18 11:34 82 16 99 Nasal Cannula 3.0 32 02/20/18 11:31 98.9 81 18 92/47 (62) 98 98.9 02/20/18 11:23 80 16 98 Nasal Cannula 3.0 32 Height (Feet): 5 Height (Inches): 3.00 Weight (Pounds): 477 Respiratory/Chest: lungs clear Cardiovascular: normal rate, regular rhythm, no gallop/murmur Abdomen: soft, non tender Extremities: no edema, other - left arm PICC Microbiology Date/Time Source Procedure Growth Status 02/19/18 09:05 Urine,Clean Catch Urine Culture - Preliminary NO GROWTH AFTER 24 HOURS Resulted Laboratory Tests Test 02/20/18 21:38 02/21/18 04:15 Vancomycin Level Trough 24.8 ug/mL (5.0-12.0) H White Blood Count 7.7 K/UL (4.8-10.8) Red Blood Count 4.79 M/UL (4.20-5.40) Hemoglobin 12.5 G/DL (12.0-16.0) Hematocrit 41.4 % (37.0-47.0) Mean Corpuscular Volume 86 FL (80-99) Mean Corpuscular Hemoglobin 26.1 PG (27.0-31.0) L Mean Corpuscular Hemoglobin Concent 30.2 G/DL (32.0-36.0) L Red Cell Distribution Width 17.0 % (11.6-14.8) H Platelet Count 95 K/UL (150-450) L Mean Platelet Volume 9.9 FL (6.5-10.1) Neutrophils (%) (Auto) % (45.0-75.0) Lymphocytes (%) (Auto) % (20.0-45.0) Monocytes (%) (Auto) % (1.0-10.0) Eosinophils (%) (Auto) % (0.0-3.0) Basophils (%) (Auto) % (0.0-2.0) Differential Total Cells Counted 100 Neutrophils % (Manual) 64 % (45-75) Lymphocytes % (Manual) 25 % (20-45) Monocytes % (Manual) 11 % (1-10) H Eosinophils % (Manual) 0 % (0-3) Basophils % (Manual) 0 % (0-2) Band Neutrophils 0 % (0-8) Platelet Estimate Decreased L Platelet Morphology Normal Hypochromasia 1+ Anisocytosis 1+ Sodium Level 139 MMOL/L (136-145) Potassium Level 3.6 MMOL/L (3.5-5.1) Chloride Level 103 MMOL/L (98-107) Carbon Dioxide Level 37 MMOL/L (21-32) H Anion Gap -1 mmol/L (5-15) L Blood Urea Nitrogen 11 mg/dL (7-18) Creatinine 0.6 MG/DL (0.55-1.30) Estimat Glomerular Filtration Rate > 60 mL/min (>60) Glucose Level 118 MG/DL (74-106) H Calcium Level 8.7 MG/DL (8.5-10.1) Magnesium Level 1.9 MG/DL (1.8-2.4) Total Bilirubin 1.4 MG/DL (0.2-1.0) H Direct Bilirubin 0.3 MG/DL (0.0-0.3) Aspartate Amino Transf (AST/SGOT) 23 U/L (15-37) Alanine Aminotransferase (ALT/SGPT) 24 U/L (12-78) Alkaline Phosphatase 61 U/L (46-116) Pro-B-Type Natriuretic Peptide 336 pg/mL (0-125) H Total Protein 6.7 G/DL (6.4-8.2) Albumin 2.6 G/DL (3.4-5.0) L Globulin 4.1 g/dL Albumin/Globulin Ratio 0.6 (1.0-2.7) L Vitamin D 25-Hydroxy Pending 25-Hydroxy Vitamin D2 Pending 25-Hydroxy Vitamin D3 Pending Zinc Level Pending Current Medications Medications (Trade) Dose Ordered Sig/Hermelinda Route PRN Reason Start Time Stop Time Status Last Admin Dose Admin Acetaminophen (Tylenol) 650 mg Q4H PRN ORAL Mild Pain/Temp > 100.5 02/20/18 07:00 03/17/18 10:59 02/20/18 09:06 Acetazolamide (Diamox) 250 mg TWICE A DAY ORAL 02/20/18 09:00 03/22/18 08:59 02/21/18 08:42 Albuterol Sulfate (Proventil) 2.5 mg Q4HRT HHN 02/20/18 19:00 02/25/18 18:59 02/21/18 07:29 Bisacodyl (Dulcolax) 5 mg DAILYPRN PRN ORAL Constipation 02/20/18 06:41 03/20/18 06:40 Chlorhexidine Gluconate (Helene-Hex 2%) 1 applic DAILY@2000 TOPIC 02/20/18 20:00 03/17/18 19:59 02/20/18 20:00 Clotrimazole (Lotrimin) 1 applic EVERY 12 HOURS TOPIC 02/20/18 09:00 03/20/18 20:59 02/21/18 08:43 Heparin Sodium (Porcine) (Heparin 5000 units/ml) 5,000 units EVERY 12 HOURS SUBQ 02/20/18 09:00 03/17/18 20:59 Lorazepam (Ativan 2mg/ml 1ml) 2 mg Q2H PRN IV For Anxiety 02/20/18 08:00 02/22/18 13:59 Magnesium Hydroxide (Mom) 30 ml DAILYPRN PRN ORAL Constipation 02/20/18 06:42 03/17/18 06:41 Morphine Sulfate (Morphine Sulfate) 2 mg Q3H PRN IVP for mild pain (1-3) 02/20/18 08:00 02/22/18 10:59 Morphine Sulfate (Morphine Sulfate) 4 mg Q3H PRN IVP For moderate pain (4-6) 02/20/18 08:00 02/22/18 10:59 Morphine Sulfate (Morphine Sulfate) 6 mg Q3H PRN IVP for severe pain (7-10) 02/20/18 06:30 02/22/18 12:29 Vancomycin HCl (Vanco rx to dose) 1 ea DAILY PRN MISC Per rx protocol 02/20/18 09:00 03/20/18 10:59 Vancomycin HCl 1 gm/Dextrose 275 ml @ 183.708 mls/hr Q12H IVPB 02/21/18 06:00 02/26/18 05:59 02/21/18 06:00 NAJMA CEJA Feb 21, 2018 11:12"
[2018-02-21 11:36] VITALS: BP 98/47
[2018-02-21] MEDS ORDERED: NS 275ml ONE (15:34)
[2018-02-21 15:39] VITALS: BP 114/68
--- NOTE | 2018-02-21 18:41 | General Progress Note ---
Assessment/Plan Problem List: (1) Pneumonia ICD Codes: J18.9 - Pneumonia, unspecified organism SNOMED: 923730306 (2) Pleural effusion ICD Codes: J90 - Pleural effusion, not elsewhere classified SNOMED: 12759868 (3) Morbid obesity ICD Codes: E66.01 - Morbid (severe) obesity due to excess calories SNOMED: 039308570 (4) Leg edema ICD Codes: R60.0 - Localized edema SNOMED: 170836443 (5) Unable to ambulate ICD Codes: R26.2 - Difficulty in walking, not elsewhere classified SNOMED: 274056394 (6) Morbid obesity ICD Codes: E66.01 - Morbid (severe) obesity due to excess calories SNOMED: 392661368 (7) Hypercapnia ICD Codes: R06.89 - Other abnormalities of breathing SNOMED: 12364419 (8) Elevated troponin ICD Codes: R74.8 - Abnormal levels of other serum enzymes SNOMED: 172177608, 822891548, 347098557 (9) Dyspnea ICD Codes: R06.00 - Dyspnea, unspecified SNOMED: 072406197 (10) CHF (congestive heart failure) ICD Codes: I50.9 - Heart failure, unspecified SNOMED: 34575708 (11) Bacteremia ICD Codes: R78.81 - Bacteremia SNOMED: 9900678 Status: stable, progressing Assessment/Plan monitor abg bipap as needed and qhs diamox resp rx monitor abg iv abx diuresis. monitor bp pain rx monitor labs and cxr skin/wound care pt/ot dietary eval for wt loss Subjective ROS Limited/Unobtainable: No Constitutional: Reports: malaise, weakness HEENT: Reports: no symptoms Cardiovascular: Reports: no symptoms Respiratory: Reports: no symptoms Gastrointestinal/Abdominal: Reports: no symptoms Genitourinary: Reports: no symptoms Neurologic/Psychiatric: Reports: pre-existing deficit, weakness Endocrine: Reports: no symptoms Hematologic/Lymphatic: Reports: anemia Allergies: Coded Allergies: No Known Allergies (Unverified , 11/23/14) All Systems: reviewed and negative except above Subjective no complaints. no sob. abg better. no chest pain. labs noted. Objective Last 24 Hour Vital Signs Date Time Temp Pulse Resp B/P (MAP) Pulse Ox O2 Delivery O2 Flow Rate FiO2 02/21/18 16:00 3.0 02/21/18 16:00 86 02/21/18 16:00 Nasal Cannula 3.0 02/21/18 15:39 98.9 86 18 114/68 (83) 94 98.9 02/21/18 15:28 84 18 99 Nasal Cannula 3.0 32 02/21/18 15:20 86 18 95 Nasal Cannula 3.0 32 02/21/18 12:00 Nasal Cannula 3.0 02/21/18 12:00 89 02/21/18 12:00 3.0 02/21/18 11:36 98.4 76 18 98/47 (64) 98 98.4 02/21/18 11:23 82 18 99 Nasal Cannula 3.0 32 02/21/18 11:11 78 18 96 Nasal Cannula 3.0 32 02/21/18 08:00 98.6 78 18 92/44 (60) 98 98.6 02/21/18 08:00 Nasal Cannula 3.0 02/21/18 08:00 79 02/21/18 08:00 3.0 02/21/18 07:37 77 18 99 Nasal Cannula 3.0 32 02/21/18 07:32 97 Nasal Cannula 3.0 32 02/21/18 07:32 Nasal Cannula 3.0 32 02/21/18 07:29 73 18 97 Nasal Cannula 3.0 32 02/21/18 04:00 98.2 80 16 101/58 (72) 99 98.2 02/21/18 04:00 35 02/21/18 04:00 72 02/21/18 04:00 Nasal Cannula 3.0 02/21/18 03:06 79 17 96 Bi-pap 35 02/21/18 02:56 65 17 95 Bi-pap 35 02/21/18 02:55 65 17 96 Facial 35 02/21/18 01:06 69 17 97 Facial 35 02/21/18 00:00 73 02/21/18 00:00 Nasal Cannula 3.0 02/21/18 00:00 98.5 73 16 98/56 (70) 100 98.5 02/20/18 23:35 84 17 97 Bi-pap 35 02/20/18 23:20 82 19 96 Bi-pap 35 02/20/18 23:08 72 18 97 Facial 35 02/20/18 23:00 35 02/20/18 20:00 3.0 9/23/18 20:00 98.4 82 18 105/49 (67) 97 98.4 02/20/18 20:00 80 02/20/18 20:00 Nasal Cannula 3.0 02/20/18 18:53 79 16 97 Nasal Cannula 3.0 32 02/20/18 18:50 Nasal Cannula 3.0 32 02/20/18 18:49 92 Nasal Cannula 3.0 32 02/20/18 18:46 77 16 92 Nasal Cannula 3.0 32 Intake and Output 02/20/18 02/21/18 19:00 07:00 Intake Total 1120.000 ml 183.708 ml Output Total 700 ml 600 ml Balance 420.000 ml -416.292 ml Intake Oral 370 ml IV Total 750.000 ml 183.708 ml Output Urine Total 700 ml 600 ml Laboratory Tests 02/20/18 21:38: Vancomycin Level Trough 24.8H 02/21/18 04:15: White Blood Count 7.7, Red Blood Count 4.79, Hemoglobin 12.5, Hematocrit 41.4, Mean Corpuscular Volume 86, Mean Corpuscular Hemoglobin 26.1L, Mean Corpuscular Hemoglobin Concent 30.2L, Red Cell Distribution Width 17.0H, Platelet Count 95L , Mean Platelet Volume 9.9, Neutrophils (%) (Auto) , Lymphocytes (%) (Auto) , Monocytes (%) (Auto) , Eosinophils (%) (Auto) , Basophils (%) (Auto) , Differential Total Cells Counted 100, Neutrophils % (Manual) 64, Lymphocytes % ( Manual) 25, Monocytes % (Manual) 11H, Eosinophils % (Manual) 0, Basophils % ( Manual) 0, Band Neutrophils 0, Platelet Estimate DecreasedL, Platelet Morphology Normal, Hypochromasia 1+, Anisocytosis 1+, Sodium Level 139, Potassium Level 3.6, Chloride Level 103, Carbon Dioxide Level 37H, Anion Gap -1L , Blood Urea Nitrogen 11, Creatinine 0.6, Estimat Glomerular Filtration Rate > 60, Glucose Level 118H, Calcium Level 8.7, Magnesium Level 1.9, Total Bilirubin 1.4H, Direct Bilirubin 0.3, Aspartate Amino Transf (AST/SGOT) 23, Alanine Aminotransferase (ALT/SGPT) 24, Alkaline Phosphatase 61, Pro-B-Type Natriuretic Peptide 336H, Total Protein 6.7, Albumin 2.6L, Globulin 4.1, Albumin/Globulin Ratio 0.6L, Vitamin D 25-Hydroxy [Pending], 25-Hydroxy Vitamin D2 [Pending], 25- Hydroxy Vitamin D3 [Pending], Zinc Level [Pending] Height (Feet): 5 Height (Inches): 3.00 Weight (Pounds): 477 Objective General Appearance: WD/WN, alert. 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
[2018-02-21 20:00] VITALS: BP 121/70
--- NOTE | 2018-02-21 20:18 | Critical Care Progress Note ---
Assessment/Plan Assessment/Plan 1. Acute on chronic respiratory failure. 2. Severe hypoxemic respiratory failure. 3. Leukocytosis. 4. Possible sepsis. 5. Evidence of elevated hemoglobin and hematocrit. 6. Possible secondary polycythemia. 7. Evidence of acute renal failure. 8. Possible demand ischemia. 9. Hypertension. 10. Asthma per history. 11. Possible pulmonary edema. 12. Bacteremia PLAN keep negative watch lytes trilogy with chronic respiratory failure and chronic co2 retention PRn and nighttime BIPAP while in the hospital supportive care ID noted cards noted dc to ARU if possible in am medications/laboratory data/nursing notes reviewed in detail note reviewed and edited care discussed with RN and RT Critical Care - Subjective Interval Events: does not want snf would like ARU Condition: improving EKG Rhythm: Sinus Rhythm I&O: Intake and Output 02/20/18 02/21/18 19:00 07:00 Intake Total 1120.000 ml 183.708 ml Output Total 700 ml 600 ml Balance 420.000 ml -416.292 ml Intake Oral 370 ml IV Total 750.000 ml 183.708 ml Output Urine Total 700 ml 600 ml Critical Care - Objective ET-Tube: 7.0 ET Position: 24 Last 24 Hour Vital Signs Date Time Temp Pulse Resp B/P (MAP) Pulse Ox O2 Delivery O2 Flow Rate FiO2 02/21/18 19:46 84 18 99 Nasal Cannula 3.0 32 02/21/18 19:36 99 Nasal Cannula 2.0 28 02/21/18 19:36 Nasal Cannula 2.0 28 02/21/18 19:34 86 20 99 Nasal Cannula 3.0 32 02/21/18 16:00 3.0 02/21/18 16:00 86 02/21/18 16:00 Nasal Cannula 3.0 02/21/18 15:39 98.9 86 18 114/68 (83) 94 98.9 02/21/18 15:28 84 18 99 Nasal Cannula 3.0 32 02/21/18 15:20 86 18 95 Nasal Cannula 3.0 32 02/21/18 12:00 Nasal Cannula 3.0 02/21/18 12:00 89 02/21/18 12:00 3.0 02/21/18 11:36 98.4 76 18 98/47 (64) 98 98.4 02/21/18 11:23 82 18 99 Nasal Cannula 3.0 32 02/21/18 11:11 78 18 96 Nasal Cannula 3.0 32 02/21/18 08:00 98.6 78 18 92/44 (60) 98 98.6 02/21/18 08:00 Nasal Cannula 3.0 02/21/18 08:00 79 02/21/18 08:00 3.0 02/21/18 07:37 77 18 99 Nasal Cannula 3.0 32 02/21/18 07:32 97 Nasal Cannula 3.0 32 02/21/18 07:32 Nasal Cannula 3.0 32 02/21/18 07:29 73 18 97 Nasal Cannula 3.0 32 02/21/18 04:00 98.2 80 16 101/58 (72) 99 98.2 02/21/18 04:00 35 02/21/18 04:00 72 02/21/18 04:00 Nasal Cannula 3.0 02/21/18 03:06 79 17 96 Bi-pap 35 02/21/18 02:56 65 17 95 Bi-pap 35 02/21/18 02:55 65 17 96 Facial 35 02/21/18 01:06 69 17 97 Facial 35 02/21/18 00:00 73 02/21/18 00:00 Nasal Cannula 3.0 02/21/18 00:00 98.5 73 16 98/56 (70) 100 98.5 02/20/18 23:35 84 17 97 Bi-pap 35 02/20/18 23:20 82 19 96 Bi-pap 35 02/20/18 23:08 72 18 97 Facial 35 02/20/18 23:00 35 Labs: Laboratory Tests Test 02/20/18 21:38 02/21/18 04:15 Vancomycin Level Trough 24.8 ug/mL (5.0-12.0) H White Blood Count 7.7 K/UL (4.8-10.8) Red Blood Count 4.79 M/UL (4.20-5.40) Hemoglobin 12.5 G/DL (12.0-16.0) Hematocrit 41.4 % (37.0-47.0) Mean Corpuscular Volume 86 FL (80-99) Mean Corpuscular Hemoglobin 26.1 PG (27.0-31.0) L Mean Corpuscular Hemoglobin Concent 30.2 G/DL (32.0-36.0) L Red Cell Distribution Width 17.0 % (11.6-14.8) H Platelet Count 95 K/UL (150-450) L Mean Platelet Volume 9.9 FL (6.5-10.1) Neutrophils (%) (Auto) % (45.0-75.0) Lymphocytes (%) (Auto) % (20.0-45.0) Monocytes (%) (Auto) % (1.0-10.0) Eosinophils (%) (Auto) % (0.0-3.0) Basophils (%) (Auto) % (0.0-2.0) Differential Total Cells Counted 100 Neutrophils % (Manual) 64 % (45-75) Lymphocytes % (Manual) 25 % (20-45) Monocytes % (Manual) 11 % (1-10) H Eosinophils % (Manual) 0 % (0-3) Basophils % (Manual) 0 % (0-2) Band Neutrophils 0 % (0-8) Platelet Estimate Decreased L Platelet Morphology Normal Hypochromasia 1+ Anisocytosis 1+ Sodium Level 139 MMOL/L (136-145) Potassium Level 3.6 MMOL/L (3.5-5.1) Chloride Level 103 MMOL/L (98-107) Carbon Dioxide Level 37 MMOL/L (21-32) H Anion Gap -1 mmol/L (5-15) L Blood Urea Nitrogen 11 mg/dL (7-18) Creatinine 0.6 MG/DL (0.55-1.30) Estimat Glomerular Filtration Rate > 60 mL/min (>60) Glucose Level 118 MG/DL (74-106) H Calcium Level 8.7 MG/DL (8.5-10.1) Magnesium Level 1.9 MG/DL (1.8-2.4) Total Bilirubin 1.4 MG/DL (0.2-1.0) H Direct Bilirubin 0.3 MG/DL (0.0-0.3) Aspartate Amino Transf (AST/SGOT) 23 U/L (15-37) Alanine Aminotransferase (ALT/SGPT) 24 U/L (12-78) Alkaline Phosphatase 61 U/L (46-116) Pro-B-Type Natriuretic Peptide 336 pg/mL (0-125) H Total Protein 6.7 G/DL (6.4-8.2) Albumin 2.6 G/DL (3.4-5.0) L Globulin 4.1 g/dL Albumin/Globulin Ratio 0.6 (1.0-2.7) L Vitamin D 25-Hydroxy Pending 25-Hydroxy Vitamin D2 Pending 25-Hydroxy Vitamin D3 Pending Zinc Level Pending Objective: WDWN on oxygen and alert morbidly obese reduced breath sounds bilaterally without rhonchi or wheeze [id number] without MRG NABS nontender no distention; obese no CC chronic skin changes and edema somewhat improved nonfocal but weak Micro: Microbiology Date/Time Source Procedure Growth Status 02/19/18 09:05 Urine,Clean Catch Urine Culture - Preliminary NO GROWTH AFTER 24 HOURS Resulted Kurtis Vazquez MD Feb 21, 2018 20:18
[2018-02-21] MEDS: Dyna-Hex 2% Top Sol 2oz TOPIC SCH (20:49)
--- NOTE | 2018-02-21 22:00 | Progress Note ---
DATE: 02/21/2018 CARDIOLOGY PROGRESS NOTE SUBJECTIVE: The patient continues to improve with no shortness of breath, respiratory distress or chest pain. She is on BiPAP at night and nasal cannula during the day. OBJECTIVE: VITAL SIGNS: Blood pressure 114/68, pulse 86, respiratory rate 18, monitored rhythm sinus. LUNGS: Diminished breath sounds. No wheezing. HEART: Regular rhythm and rate. Normal S1 and S2 with a fourth heart sound. ABDOMEN: Soft, obese. EXTREMITIES: With trace edema and changes. LABORATORY AND DIAGNOSTIC DATA: White count 7.7 and hemoglobin 12.5. Potassium 3.6, BUN 11, creatinine 0.6, bicarbonate 37. Magnesium 1.9. Albumin 2.6. IMPRESSION: 1. Chronic respiratory acidosis. 2. Compensatory metabolic alkalosis, improving. 3. Moderate protein-calorie malnutrition. 4. Acute on chronic diastolic congestive heart failure. 5. Status post respiratory failure. 6. Secondary polycythemia. PLAN: 1. Continue Diamox and maintenance loop diuretic dosing without change. 2. Monitor volume status and acid-base parameters. 3. Monitor respiratory parameters. 4. Continue DVT prophylaxis. 5. Follow up laboratory studies including natriuretic peptide assay. Niko Seymour M.D. DR: STEPHANIE JOB#: [id number] CC:
[2018-02-22] VITALS: BP 109/63
[2018-02-22] MEDS: Albuterol ud Inhalation HHN SCH ×3 (03:13→10:35)
[2018-02-22 04:00] VITALS: BP 107/44
[2018-02-22 04:57] LABS: HEMATOCRIT 37.8 % (37.0-47.0); HEMOGLOBIN 11.7 G/DL (12.0-16.0); MEAN CORPUSCULAR VOLUME 87 FL (80-99); PLATELET COUNT 95 K/UL (150-450); RED BLOOD COUNT 4.36 M/UL (4.20-5.40); RED CELL DISTRIBUTION WIDTH 17.2 % (11.6-14.8); WHITE BLOOD COUNT 7.2 K/UL (4.8-10.8)
[2018-02-22 05:28] LABS: ANION GAP 4 mmol/L (5-15); BLOOD UREA NITROGEN 13 mg/dL (7-18); CALCIUM 8.8 MG/DL (8.5-10.1); CARBON DIOXIDE 33 MMOL/L (21-32); CHLORIDE 104 MMOL/L (98-107); CREATININE 0.7 MG/DL (0.55-1.30); POTASSIUM 3.5 MMOL/L (3.5-5.1); SODIUM 141 MMOL/L (136-145)
[2018-02-22] MEDS: Vancomycin 1 GM in D5W 275 ML IVPB SCH (05:37)
[2018-02-22 08:00] VITALS: BP 104/57
[2018-02-22] MEDS: Heparin 5000 units/ml inj SUBQ SCH (09:00)
--- NOTE | 2018-02-22 11:22 | Critical Care Progress Note ---
Assessment/Plan Assessment/Plan 1. Acute on chronic respiratory failure. 2. Severe hypoxemic respiratory failure. 3. Leukocytosis. 4. Possible sepsis. 5. Evidence of elevated hemoglobin and hematocrit. 6. Possible secondary polycythemia. 7. Evidence of acute renal failure. 8. Possible demand ischemia. 9. Hypertension. 10. Asthma per history. 11. Possible pulmonary edema. 12. Bacteremia 13. obesity hypoventilation syndrome PLAN keep negative BIPAP not sufficient trilogy NIV for AVAPS AE and mouthpiece ventilation support to reduce co2 retention needs chronic oxygen therapy due to chronic hypoxemia supportive care ID noted cards noted dc to ARU if possible in am medications/laboratory data/nursing notes reviewed in detail note reviewed and edited care discussed with RN and RT Critical Care - Subjective Interval Events: care noted and reviewed agrees to ARU left message to for her primary MD to update Condition: improving EKG Rhythm: Sinus Rhythm I&O: Intake and Output 02/21/18 02/22/18 19:00 07:00 Intake Total 311.292 ml 70 ml Balance 311.292 ml 70 ml Intake Oral 220 ml IV Total 91.292 ml 70 ml Critical Care - Objective ET-Tube: 7.0 ET Position: 24 Last 24 Hour Vital Signs Date Time Temp Pulse Resp B/P (MAP) Pulse Ox O2 Delivery O2 Flow Rate FiO2 02/22/18 10:42 79 18 99 Nasal Cannula 2.0 02/22/18 10:35 86 18 99 Nasal Cannula 2.0 28 02/22/18 08:00 98.7 85 20 104/57 (73) 96 98.7 02/22/18 07:37 75 18 99 Nasal Cannula 2.0 28 02/22/18 07:30 99 Nasal Cannula 2.0 28 02/22/18 07:30 84 18 99 Nasal Cannula 2.0 28 02/22/18 07:30 Nasal Cannula 2.0 28 02/22/18 04:00 82 02/22/18 04:00 98.6 82 20 107/44 (65) 98 98.6 02/22/18 04:00 3.0 02/22/18 03:20 74 18 99 Bi-pap 28 02/22/18 03:15 74 20 98 Facial 28 02/22/18 03:13 71 20 98 Bi-pap 28 02/22/18 01:42 77 20 97 Facial 28 02/22/18 00:00 81 02/22/18 00:00 99.0 84 20 109/63 (78) 95 99.0 02/21/18 23:41 78 18 99 Bi-pap 28 02/21/18 23:35 80 20 99 Bi-pap 28 02/21/18 23:34 79 18 95 Facial 28 02/21/18 21:00 Nasal Cannula 3.0 02/21/18 20:00 83 02/21/18 20:00 3.0 02/21/18 20:00 98.9 84 20 121/70 (87) 94 98.9 02/21/18 19:46 84 18 99 Nasal Cannula 3.0 32 02/21/18 19:36 99 Nasal Cannula 2.0 28 02/21/18 19:36 Nasal Cannula 2.0 28 02/21/18 19:34 86 20 99 Nasal Cannula 3.0 32 02/21/18 16:00 3.0 02/21/18 16:00 86 02/21/18 16:00 Nasal Cannula 3.0 02/21/18 15:39 98.9 86 18 114/68 (83) 94 98.9 02/21/18 15:28 84 18 99 Nasal Cannula 3.0 32 02/21/18 15:20 86 18 95 Nasal Cannula 3.0 32 02/21/18 12:00 Nasal Cannula 3.0 02/21/18 12:00 89 02/21/18 12:00 3.0 02/21/18 11:36 98.4 76 18 98/47 (64) 98 98.4 02/21/18 11:23 82 18 99 Nasal Cannula 3.0 32 Labs: Laboratory Tests Test 02/22/18 04:00 White Blood Count 7.2 K/UL (4.8-10.8) Red Blood Count 4.36 M/UL (4.20-5.40) Hemoglobin 11.7 G/DL (12.0-16.0) L Hematocrit 37.8 % (37.0-47.0) Mean Corpuscular Volume 87 FL (80-99) Mean Corpuscular Hemoglobin 26.7 PG (27.0-31.0) L Mean Corpuscular Hemoglobin Concent 30.9 G/DL (32.0-36.0) L Red Cell Distribution Width 17.2 % (11.6-14.8) H Platelet Count 95 K/UL (150-450) L Mean Platelet Volume 10.9 FL (6.5-10.1) H Neutrophils (%) (Auto) % (45.0-75.0) Lymphocytes (%) (Auto) % (20.0-45.0) Monocytes (%) (Auto) % (1.0-10.0) Eosinophils (%) (Auto) % (0.0-3.0) Basophils (%) (Auto) % (0.0-2.0) Sodium Level 141 MMOL/L (136-145) Potassium Level 3.5 MMOL/L (3.5-5.1) Chloride Level 104 MMOL/L (98-107) Carbon Dioxide Level 33 MMOL/L (21-32) H Anion Gap 4 mmol/L (5-15) L Blood Urea Nitrogen 13 mg/dL (7-18) Creatinine 0.7 MG/DL (0.55-1.30) Estimat Glomerular Filtration Rate > 60 mL/min (>60) Glucose Level 121 MG/DL (74-106) H Calcium Level 8.8 MG/DL (8.5-10.1) Objective: WDWN on oxygen and alert morbidly obese reduced breath sounds bilaterally without rhonchi or wheeze [id number] without MRG NABS nontender no distention; obese no CC chronic skin changes and edema stable nonfocal but weak Kurtis Vazquez MD Feb 22, 2018 11:22
[2018-02-22 12:00] VITALS: BP 123/61
[2018-02-22] MEDS ORDERED: DIAMOX250 MG ORAL (13:11)
[2018-02-22] MEDS ORDERED: HEPARIN SO5000 UNIT2 SUBQ (13:12)
[2018-02-22] MEDS ORDERED: CLOTRIMAZOLE15 GM TOPIC (13:12)
[2018-02-22] MEDS ORDERED: Tubing IV Secondary IV ONE (13:29)
[2018-02-22] MEDS ORDERED: NS 275ml ONE (13:29)
--- NOTE | 2018-02-23 03:45 | Progress Note ---
DATE: 02/22/2018 CARDIOLOGY PROGRESS NOTE SUBJECTIVE: The patient feels much better. No shortness of breath. She is still bedbound. At baseline, she is unable to mobilize out of bed. OBJECTIVE: VITAL SIGNS: Blood pressure 104/57, pulse 85, respirations 20, and morbidly obese. LUNGS: Diminished breath sounds. HEART: Regular rhythm and rate. Normal S1 and S2. ABDOMEN: Soft. EXTREMITIES: Trace dependent edema. LABORATORY DATA: Reviewed. IMPRESSION: 1. Acute on chronic respiratory failure, resolved. 2. Severe hypoxia, recovered. 3. Community-acquired pneumonia, improved. 4. Sepsis, resolved. 5. Acute on chronic diastolic congestive heart failure, now compensated. 6. History of asthma. 7. Bacteremia. 8. Increased risk for endocarditis. 9. Obesity hypoventilation syndrome. PLAN: 1. Respiratory hygiene. 2. Antimicrobials. 3. CPAP at night. 4. Monitor hemoglobin. 5. Trend natriuretic peptide assay. 6. Stable for lower level of care and acute rehabilitation as tolerated. 7. She will need close monitoring of respiratory parameters and acid base status. 8. We will need to readdress need to continue Diamox/acetazolamide now that metabolic alkalosis has decreased. Niko Seymour M.D. DR: FRANCESCO JOB#: [id number] CC:
--- NOTE | 2018-02-25 09:49 | Discharge Summary ---
Discharge Summary Discharge Summary _ DATE OF ADMISSION: 02/15/2018 DATE OF DISCHARGE: 02/22/2018. REASON FOR ADMISSION: 53 years old male, morbidly obese, with past medical history of asthma, hypertension, hypoxemia ,home oxygen dependent, hypertension, presented by paramedics for evaluation due to shortness of breath. No fever ,no chills . No chest pain. Patient was severely hypoxemic in the field and was placed on 100% nonrebreathing mask by paramedics. Upon evaluation in emergency department, patient was tachycardic and tachypneic. Pulse oximetry was 84% on room air. Patient was placed on BiPAP. Laboratory workup revealed leukocytosis with WBC 15.9 . BUN 35, creatinine 1.3. Lactic acid 1.7. Troponin elevated 0.165 ,pro BNP 8849. EKG revealed sinus tachycardia , no acute ischemic changes. Chest x-ray revealed cardiomegaly with bilateral pulmonary vascular congestion. ABG showed acute respiratory acidosis with severe hypercapnia. Patient was subsequently orally intubated in emergency department and transferred to ICU for further management with diagnoses of acute on chronic respiratory failure, acute CHF exacerbation, elevated troponin, possible NSTEMI , leukocytosis, possible sepsis, pneumonia, acute renal failure ,secondary polycythemia ,asthma ,morbid obesity. CONSULTANTS: geographic information systems director pulmonary Dr. Vazquez ID specialist [facility] COURSE: Patient admitted to ICU. Ventilator support and pulmonary toilet provided. Patient was followed up with ABG and chest x-ray. Pulmonary toilet provided . Dental Office Manager closely followed. Patient started on diuresis with close monitoring of cardiorenal parameters and volumes. Patient started on Diamox in order to reset hypercapnia. Venous duplex bilateral lower extremity was negative for evidence of acute on DVT. Blood culture revealed Staphylococcus epidermidis . Sputum culture revealed Staphylococcus aureus, and urine culture were negative. Antibiotic regimen provided as per infectious disease specialist recommendations. Troponin initially with a small trend up, then started to trend down. According to geographic information systems director, patient likely had acute myocardial ischemia/ demand ischemia; possible NSTEMI. Echocardiogram revealed preserved ejection fraction 55-60% and right ventricular systolic pressure of 42 consistent with moderate pulmonary hypertension. Diuresis was continued. Cardiorenal parameters and volumes were closely monitored. Blood pressure remained stable, no need for antihypertensive medication. DVT and GI prophylaxis provided. Patient eventually was able to be extubated. Patient initially was on BiPAP and then was able to be downgraded to oxygen via nasal cannula. ABG showed improvement , however patient had a chronic CO2 retention. Congestive heart failure by the time of discharge was already compensated . Diuretic changed to maintenance dose of Lasix and Diamox. CPAP provided at night and as needed. Recommended outpatient sleep study test. Renal parameters and electrolytes were closely monitored. Electrolytes replaced as needed. Nephrotoxins were avoided. Prior to discharge BUN 13, creatinine 0.7. Acute renal failure was likely due to sepsis adn resolved prior to discharge. Supportive care provided. Bowel regimen instituted. Pain management was addressed as needed. Patient was working with physical and occupational therapists. Bedside swallow evaluation revealed evidence of dysphagia. Diet downgraded as per speech therapy recommendations with strict aspiration/ reflux precaution. Patient declined to go to long term facility. Patient was subsequently transferred to acute rehabilitation unit at [facility] for further rehabilitation FINAL DIAGNOSES: Acute hypoxemic hypercapnic respiratory failure , requiring intubation ( s/p extubation) -resolved Chronic respiratory failure with CO2 retention Acute on chronic diastolic congestive heart failure-resolved Elevated troponin with acute myocardial ischemia Possible NSTEMI Sepsis with Staph epidermidis bacteremia Aspiration pneumonia with Staphylococcus aureus Dysphagia Secondary polycythemia Acute renal failure -resolved Asthma Morbid obesity Obesity hypoventilation syndrome Probably obstructive sleep apnea DISCHARGE MEDICATIONS: See Medication Reconciliation list. DISCHARGE INSTRUCTIONS: Patient was transferred to Acute Rehabilitation Unit at [facility]. I have been assigned to dictate discharge summary for this account. I was not involved in the patient's management. Cecille Bradshaw NP Feb 25, 2018 09:49
== END 2018-02-22 13:30 | disposition short-term general hospital (02) | DRG 871 ==
LOC: EDBD 05:35 → EDBEDREQ 05:44 → EMR 05:52 → ICU 06:02 → EDBEDREQTM 06:13 → EDBEDREQSVC 06:13 → EDBEDREQ 06:13 → EDBEDREQSVC 07:26 → EDBEDREQ 07:26 → EDBEDREQTM 07:26 → EDBEDREQ 07:27 → 2W 02-18 09:05 → 2E 02-20 06:49 → 2W 02-20 07:14 → 2E 02-21 18:03
PROC: 02HV33Z Insertion of Infusion Device into Superior Vena Cava, Percutaneous Approach (ICD-10-PCS; principal; 2018-02-15)
PROC: B548ZZA Ultrasonography of Superior Vena Cava, Guidance (ICD-10-PCS; principal; 2018-02-15)
PROC: 5A1945Z Respiratory Ventilation, 24-96 Consecutive Hours (ICD-10-PCS; principal; 2018-02-15)
PROC: 0BH17EZ Insertion of Endotracheal Airway into Trachea, Via Natural or Artificial Opening (ICD-10-PCS; principal; 2018-02-15)
DX: A41.89 Other specified sepsis (principal); I50.33 Acute on chronic diastolic (congestive) heart failure; I21.A1 Myocardial infarction type 2; J96.21 Acute and chronic respiratory failure with hypoxia; R65.21 Severe sepsis with septic shock; J15.211 Pneumonia due to Methicillin susceptible Staphylococcus aureus; J69.0 Pneumonitis due to inhalation of food and vomit; J96.22 Acute and chronic respiratory failure with hypercapnia; N17.9 Acute kidney failure, unspecified; E66.2 Morbid (severe) obesity with alveolar hypoventilation; Z68.45 Body mass index [BMI] 70 or greater, adult; E87.0 Hyperosmolality and hypernatremia; E44.0 Moderate protein-calorie malnutrition; I11.0 Hypertensive heart disease with heart failure; G47.33 Obstructive sleep apnea (adult) (pediatric); E11.9 Type 2 diabetes mellitus without complications; D75.1 Secondary polycythemia; E86.0 Dehydration; Z99.81 Dependence on supplemental oxygen; R13.10 Dysphagia, unspecified; J45.909 Unspecified asthma, uncomplicated
CPT/HCPCS: 36415; 36569; 36600; 71045; 76937; 80048; 80053; 80202; 81001; 81003; 82248; 82306; 82550; 82553; 82803; 83605; 83735; 83880; 84478; 84484; 84630; 85007; 85025; 87040; 87070; 87081; 87086; 87181; 87205; 93005; 93306; 93970; 94002; 94003; 94640; 94660; 94664; 94760; J8499

== ENCOUNTER 2018-11-14 10:37 | Inpatient (IN) | payer MEDICARE, MEDICAID ==
[~2018-11-14] VITALS: Ht 160 cm; Wt 109.3 kg
[~2018-11-14 10:37] MED LIST: CLOTRIMAZOLE15 GM TOPIC; DIAMOX250 MG ORAL; HEPARIN SO5000 UNIT2 SUBQ; UNOBMED
[2018-11-14 10:47] VITALS: BP 130/64
--- NOTE | 2018-11-14 10:47 | NUR ---
ED Nurse Note: PT BROUGHT IN BY EMS FROM HOME DUE LEFT ANKLE AND LEFT KNEE PAIN. PER PT, WHEN SHE WAS ABOUT TO GET UP FROM THE BED SHE MISTEPPED AND TWISTED HER LEFT FOOT BUT DENIES FALLING AND DENIES HEAD INJURY. NOTED LEFT ANKLE SWELLING BUT NO OBVIOUS DEFORMITY. AAO X4,NON AMBULATORY VSS.
--- NOTE | 2018-11-14 11:01 | NUR ---
ED Nurse Note: NOTED BILATERAL LEG BANDAGE AND PER PT SHE HAS SEEPING LYMPHEDEMA.
--- NOTE | 2018-11-14 11:18 | NUR ---
ED Nurse Note: SPRING COILER AT THE BED SIDE FOR ANKLE XRAY.
[2018-11-14] MEDS ORDERED: VITAMIN D1000 UNI1 ORAL (11:29)
[2018-11-14] MEDS ORDERED: ADVAIR 500-501 EACH INH (11:29)
[2018-11-14] MEDS ORDERED: Morphine Sulfate 4mg/ml Inj (IV USE ONLY) IVP ONE (11:30)
--- NOTE | 2018-11-14 11:53 | NUR ---
ED Nurse Note: BLOOD SPECIMEN SENT. DR RAMEY NOTIFIED THAT PT REFUSED MORPHINE.
[2018-11-14 12:04] LABS: HEMATOCRIT 45.7 % (37.0-47.0); HEMOGLOBIN 14.5 G/DL (12.0-16.0); MEAN CORPUSCULAR VOLUME 90 FL (80-99); PLATELET COUNT 150 K/UL (150-450); RED BLOOD COUNT 5.07 M/UL (4.20-5.40); RED CELL DISTRIBUTION WIDTH 13.6 % (11.6-14.8); WHITE BLOOD COUNT 15.6 K/UL (4.8-10.8)
[2018-11-14 12:12] LABS: ANION GAP 6 mmol/L (5-15); BLOOD UREA NITROGEN 21 mg/dL (7-18); CARBON DIOXIDE 36 MMOL/L (21-32); CHLORIDE 99 MMOL/L (98-107); CREATININE 0.8 MG/DL (0.55-1.30); POTASSIUM 5.3 MMOL/L (3.5-5.1); SODIUM 141 MMOL/L (136-145)
[2018-11-14 12:22] LABS: ALANINE AMINOTRANSFERASE 17 U/L (12-78); ALBUMIN 3.8 G/DL (3.4-5.0); ALBUMIN/GLOBULIN RATIO 0.9 (1.0-2.7); ALKALINE PHOSPHATASE 96 U/L (46-116); ASPARTATE AMINO TRANSFERASE 32 U/L (15-37); BILIRUBIN,TOTAL 1.1 MG/DL (0.2-1.0)
[2018-11-14 12:23] LABS: BILIRUBIN,DIRECT 0.1 MG/DL (0.0-0.3)
[2018-11-14 12:40] VITALS: BP 128/70
--- NOTE | 2018-11-14 12:52 | Emergency Room Report ---
History of Present Illness General Chief Complaint: Lower Extremity Injury Source: Patient Present Illness HPI This patient states that she had been referred to a cashier and waiter/waitress to assess for rheumatoid arthritis. The patient states she has horrible arthritis in both her knees. She states that this is caused her to be almost nonambulatory. She primarily gets around with a wheelchair. She can walk a few steps. She states that she was getting ready to go to the appointment which requires a lot of work on her part and she slipped and felt her left ankle twist. She complains of pain in her left ankle. She states that she has severe chronic pain. She denies head injury or trauma. She has no other complaints. Allergies: Coded Allergies: No Known Allergies (Unverified , 11/23/14) Patient History Past Medical History: see triage record, HTN, asthma, other - Arthritis, morbid obesity Social History: Denies: smoking, alcohol use, drug use Now: No Reviewed Nursing Documentation: PMH: Agreed; PSxH: Agreed Nursing Documentation-PMH Hx Cardiac Problems: No Hx Hypertension: Yes Hx Asthma: Yes Hx Cancer: No Hx Gastrointestinal Problems: No Hx Neurological Problems: No Review of Systems All Other Systems: negative except mentioned in HPI Physical Exam Vital Signs Date Time Temp Pulse Resp B/P (MAP) Pulse Ox O2 Delivery O2 Flow Rate FiO2 11/14/18 10:37 99.0 98 18 114/77 (89) 100 Room Air Sp02 EP Interpretation: reviewed, normal General Appearance: no apparent distress, alert, GCS 15, non-toxic, obese Head: normocephalic, atraumatic Eyes: bilateral eye normal inspection, bilateral eye PERRL ENT: hearing grossly normal, normal pharynx, no angioedema, normal voice Neck: full range of motion, supple/symm/no masses Respiratory: chest non-tender, lungs clear, normal breath sounds, no respiratory distress, no retraction, no accessory muscle use, speaking full sentences Cardiovascular #1: regular rate, rhythm, no edema Gastrointestinal: normal bowel sounds, non tender, soft, non-distended, no guarding, no rebound Rectal: deferred Musculoskeletal: back normal, other - +Pain in L. ankle and foot. Neurologic: alert, oriented x3, responsive, motor strength/tone normal, speech normal Psychiatric: judgement/insight normal, memory normal, mood/affect normal, no suicidal/homicidal ideation Skin: normal color, no rash, warm/dry, well hydrated Medical Decision Making Diagnostic Impression: Primary Impression: Left ankle injury Additional Impressions: Morbid obesity Unable to ambulate ER Course This patient suffered a left ankle sprain. She has a lot of arthritis in her ankle. There could be an occult fracture. The patient is morbidly obese and is unable to place any weight on the ankle and foot. She is in intractable pain. She is admitted for pain control and further evaluation and treatment. Laboratory Tests Test 11/14/18 11:50 White Blood Count 15.6 K/UL (4.8-10.8) H Red Blood Count 5.07 M/UL (4.20-5.40) Hemoglobin 14.5 G/DL (12.0-16.0) Hematocrit 45.7 % (37.0-47.0) Mean Corpuscular Volume 90 FL (80-99) Mean Corpuscular Hemoglobin 28.5 PG (27.0-31.0) Mean Corpuscular Hemoglobin Concent 31.6 G/DL (32.0-36.0) L Red Cell Distribution Width 13.6 % (11.6-14.8) Platelet Count 150 K/UL (150-450) Mean Platelet Volume 9.6 FL (6.5-10.1) Neutrophils (%) (Auto) % (45.0-75.0) Lymphocytes (%) (Auto) % (20.0-45.0) Monocytes (%) (Auto) % (1.0-10.0) Eosinophils (%) (Auto) % (0.0-3.0) Basophils (%) (Auto) % (0.0-2.0) Differential Total Cells Counted 100 Neutrophils % (Manual) 85 % (45-75) H Lymphocytes % (Manual) 6 % (20-45) L Monocytes % (Manual) 8 % (1-10) Eosinophils % (Manual) 0 % (0-3) Basophils % (Manual) 0 % (0-2) Band Neutrophils 1 % (0-8) Platelet Estimate Adequate Platelet Morphology Normal Red Blood Cell Morphology Normal Sodium Level 141 MMOL/L (136-145) Potassium Level 5.3 MMOL/L (3.5-5.1) H Chloride Level 99 MMOL/L (98-107) Carbon Dioxide Level 36 MMOL/L (21-32) H Anion Gap 6 mmol/L (5-15) Blood Urea Nitrogen 21 mg/dL (7-18) H Creatinine 0.8 MG/DL (0.55-1.30) Estimate Glomerular Filtration Rate > 60 mL/min (>60) Glucose Level 136 MG/DL (74-106) H Calcium Level 10.0 MG/DL (8.5-10.1) Total Bilirubin 1.1 MG/DL (0.2-1.0) H Direct Bilirubin 0.1 MG/DL (0.0-0.3) Aspartate Amino Transferase (AST) 32 U/L (15-37) Alanine Aminotransferase (ALT) 17 U/L (12-78) Alkaline Phosphatase 96 U/L (46-116) Total Protein 8.2 G/DL (6.4-8.2) Albumin 3.8 G/DL (3.4-5.0) Globulin 4.4 g/dL Albumin/Globulin Ratio 0.9 (1.0-2.7) L Other X-Ray Diagnostic Results Other X-Ray Diagnostic Results : X-Ray ordered: L. ankle, L. tib/fib xray # of Views/Limited Vs Complete: Complete Indication: Pain EP Interpretation: No Interpretation: other - Questionable area on the lateral malleouls. Last Vital Signs Date Time Temp Pulse Resp B/P (MAP) Pulse Ox O2 Delivery O2 Flow Rate FiO2 11/14/18 10:47 98.9 98 16 130/64 100 Room Air Disposition: ADMITTED INPATIENT Condition: Stable Referrals: Kurtis Vazquez MD (PCP) Pauline Shay DO Nov 14, 2018 12:52
[2018-11-14 14:45] VITALS: BP 121/65
[2018-11-14] MEDS ORDERED: Ketorolac 30mg Inj IV ONE (14:45)
--- NOTE | 2018-11-14 16:16 | NUR ---
ED Nurse Note: COLLECTED URINE THEN SENT.
--- NOTE | 2018-11-14 16:17 | NUR ---
ED Nurse Note: PER PT, SHE HAS BED SORES ON HER BACK. RN UNABLE TO TAKE PICTURES DUE TO PT BEING OVERWEIGHT/HEAVY AND UNABLE TO TURN ON HER SIDES.
[2018-11-14 16:25] LABS: APPEARANCE,URINE CLEAR; BILIRUBIN, URINE NEGATIVE (NEGATIVE); GLUCOSE, URINE (UA) NEGATIVE (NEGATIVE); KETONES,URINE 1+ (NEGATIVE); LEUKOCYTE ESTERASE ,URINE 1+ (NEGATIVE); NITRITE,URINE NEGATIVE (NEGATIVE); PH,URINE 8 (4.5-8.0); PROTEIN,URINE 1+ (NEGATIVE); UROBILINOGEN,URINE 1 MG/DL (0.0-1.0)
[2018-11-14 16:26] LABS: COLOR,URINE YELLOW
--- NOTE | 2018-11-14 16:53 | NUR ---
ED Nurse Note: REPORT GIVEN TO BRANDO CRAVEN OF MED SURG UNIT.
--- NOTE | 2018-11-14 16:55 | NUR ---
ED Nurse Note: WAITING FOR DR WEINSTEIN TO SPEAK TO DR KANG. ER CHARGE NURSE AWARE.
--- NOTE | 2018-11-14 17:20 | NUR ---
ED Nurse Note: PT TRANSFERRED TO MED SURG UNIT VIA GURNEY. ALL BELONGINGS SENT.
--- NOTE | 2018-11-14 18:19 | NUR ---
NURSE NOTES: Patient brought up from ER via gurney. Report received from MERISSA Duong. Belongings reviewed and accounted for. Patient is alert and oriented. Patient oriented to room. Side rails are upx3, bed is locked, in lowest position, and call light is within reach. Dr. Vazquez called for admission orders. Awaiting call back.
[2018-11-14 18:23] VITALS: BP 94/73
--- NOTE | 2018-11-14 18:35 | Diagnostic Imaging Report ---
Indication: Trauma, pain Technique: 3 views of the left ankle Comparison: none Findings: The bones are osteoporotic. There is slight irregularity of the tip of the distal fibula, most likely degenerative in nature. There is soft tissue swelling over the lateral malleolus. There is degenerative irregularity of the medial malleolus as well. Impression: No acute bony trauma Osteoporosis
--- NOTE | 2018-11-14 18:36 | Diagnostic Imaging Report ---
Indication: Trauma, pain Technique: 2 views of the left tibia and fibula Comparison: none Findings: Bones are osteoporotic. There are degenerative changes of the knee joint. No definite acute fractures. No dislocations. No radiopaque foreign body Impression: Degenerative changes. No definite acute bony trauma
[2018-11-14] MEDS ORDERED: HYDROcodone/Acetamin 5/325 tab ORAL PRN (19:00)
--- NOTE | 2018-11-14 19:02 | NUR ---
NURSE NOTES: Patient called to give admission orders. Orders entered and will carry out.
--- NOTE | 2018-11-14 19:20 | NUR ---
NURSE NOTES: Received report from MERISSA Naidu. Patient awake, alert and oriented x 4, and in bed. Family member at bedside. Patient receiving 2L O2 per nasal cannula and showing no signs of respiratory distress. Patient is not reporting pain. Left hand IV in tact. Armendariz catheter in tact. Bed is in the lowest position with call light within reach. Bed alarm on. Will continue to monitor.
--- NOTE | 2018-11-14 19:30 | NUR ---
HAND-OFF: Report given to MERISSA Rebolledo.
[2018-11-14 20:00] VITALS: BP 116/73
[2018-11-14] MEDS: Heparin 5000 units/ml inj SUBQ SCH (20:52)
[2018-11-14] MEDS ORDERED: Vitamin D 50,000 units cap ORAL SCH (22:00)
[2018-11-15] VITALS: BP 112/72
--- NOTE | 2018-11-15 02:43 | NUR ---
NURSE NOTES: Transferred patient to room 420-2 to a bariatric bed with trapeze and an air mattress. Bedside table and belongings taken to the patients room. Instructed patient on trapeze use. Patient demonstrated use. Bed placed in lowest position with the call light in reach.
[2018-11-15 04:00] VITALS: BP 101/64
[2018-11-15 06:45] LABS: BASOPHILS % (AUTO) 0.6 % (0.0-2.0); EOSINOPHILS % (AUTO) 1.2 % (0.0-3.0); HEMATOCRIT 38.9 % (37.0-47.0); HEMOGLOBIN 12.4 G/DL (12.0-16.0); LYMPHOCYTES % (AUTO) 17.7 % (20.0-45.0); MEAN CORPUSCULAR VOLUME 90 FL (80-99); MONOCYTES % (AUTO) 6.9 % (1.0-10.0); NEUTROPHILS % (AUTO) 73.6 % (45.0-75.0); PLATELET COUNT 102 K/UL (150-450); RED BLOOD COUNT 4.32 M/UL (4.20-5.40); RED CELL DISTRIBUTION WIDTH 13.6 % (11.6-14.8); WHITE BLOOD COUNT 8.4 K/UL (4.8-10.8)
[2018-11-15 07:06] LABS: ANION GAP 4 mmol/L (5-15); BLOOD UREA NITROGEN 16 mg/dL (7-18); CALCIUM 9.3 MG/DL (8.5-10.1); CARBON DIOXIDE 39 MMOL/L (21-32); CHLORIDE 103 MMOL/L (98-107); CREATININE 0.7 MG/DL (0.55-1.30); POTASSIUM 3.2 MMOL/L (3.5-5.1); SODIUM 146 MMOL/L (136-145)
--- NOTE | 2018-11-15 07:37 | NUR ---
HAND-OFF: Report given to MERISSA Reno.
[2018-11-15 08:00] VITALS: BP 120/59
[2018-11-15] MEDS: Wixela 250/50 Inhaler - 60 dose INH SCH ×2 (08:28→21:20)
[2018-11-15] MEDS: Lactobacillus-GG tablet ORAL SCH (08:32)
[2018-11-15] MEDS: HYDROcodone/Acetamin 5/325 tab ORAL PRN ×2 (08:34→13:50)
[2018-11-15] MEDS: Heparin 5000 units/ml inj SUBQ SCH ×2 (08:40→20:37)
--- NOTE | 2018-11-15 09:05 | NUR ---
PT EVALUATION NOTE Patient seen for initial evaluation, see complete evaluation for details. Patient has significantly limited mobility due to pain, weakness and body habitus. Patient required max assist of 2 people to roll in bed, limited by weakness, habitus and pain with mobility. Supine to sit deferred due to pain and weakness. Patient will benefit from skilled inpatient PT intervention to address strength, balance, safety and functional mobility. Encouraged patient to mobilize her LEs as much as possible and to attempt rolling in bed intermittently throughout the day. Patient has 5 stairs to negotiate in order to access her house and would recommend discharge to short term SNF or ARU for further rehab to maximize her level of function once medically cleared by MD. DME needs to be determined, patient has FWW and hospital bed at home. Addendum: 11/15/18 at 1154 by CARLOS LUJAN PT Amended: Links added.
--- NOTE | 2018-11-15 10:23 | NUR ---
SLATE MIXERCOMPUTER FORENSICS EXAMINER 53 Y/O FEMALE BIBA FROM HOME TO [facility] CC:LE INJURY SI:INTRACTABLE PAIN S/P LEFT ANKLE INJURY VS: BP 130/64, P 98, T 99.0, RR 16, SpO2 100 WBC 15.6, K 5.3, BUN 21 IS:MORPHINE SULFATE 4mg IVP TORADOL 30mg ADMITTED TO MED/SURG DCP: RETURN HOME
[2018-11-15 12:00] VITALS: BP 114/72
--- NOTE | 2018-11-15 12:15 | History and Physical Report ---
DATE OF ADMISSION: 11/14/2018 REASON FOR ADMISSION: Ankle pain, significant debility. HISTORY OF PRESENT ILLNESS: This is a 53-year-old female, who is well known to me. The patient has been at home, primary care provider, sister. The patient is mostly bedbound, difficulty with management. She apparently was referred due to recent diagnosis of rheumatoid arthritis. The patient has significant amount of pain. The patient is mostly nonambulatory, apparently gets around by wheelchair. The patient was apparently getting ready to go to an appointment where she twisted her left ankle. Now, she has significant pain, unable to go back home. She was seen in the emergency room and was felt to require further evaluation and admission. The patient also requires significant amount of pain control at present. The patient has had multiple issues in the past, has had a prolonged hospital stay in the past. The last admission was approximately two years ago, at which point she was discharged to rehabilitation and thereafter to home. PAST MEDICAL HISTORY: Notable for obesity, hypoventilation, vitamin D deficiency, possible rheumatoid arthritis, morbid obesity, possible asthma, intractable pain, prior history of bacteremia, and prior history of respiratory failure. MEDICATIONS: Reviewed. ALLERGIES: Reviewed. SOCIAL HISTORY: She is nonsmoker, nondrinker, mostly bedbound. Lives with her sister, who is her primary caregiver. REVIEW OF SYSTEMS: All 10 points reviewed. The patient has significant pain and significant debility. She is fully alert, has history of hypertension, history of asthma, fairly well controlled. PHYSICAL EXAMINATION: GENERAL: A well-developed female, morbidly obese. VITAL SIGNS: T-max 100, blood pressure 101/64, 82, respirations 20, and saturations 95%. HEENT: Negative. Extraocular movements are grossly intact. NECK: Supple. LUNGS: Fairly clear and symmetric. No rhonchi or wheezes. CARDIAC: S1 and S2. Regular rate and rhythm without murmurs, rubs, or gallops. ABDOMEN: Overall soft, nontender, nondistended. EXTREMITIES: No cyanosis or clubbing. There is edema. There is pain with movement of the ankle. LABORATORY DATA: Otherwise reviewed. Now, white cell count 8.4, hematocrit 38, and platelets of 102. Sodium 146, potassium 3.2. The remainder of the laboratories reviewed and essentially negative. IMPRESSION: 1. Status post ankle sprain. 2. Significant arthritis, possible rheumatoid arthritis. 3. Morbid obesity. 4. Significant debility. 5. Immobile state. 6. Prior history of asthma. 7. History of hypertension. RECOMMENDATIONS: Supportive care. Hold on antibiotics. Followup CBC with reduced platelets. Physical therapy evaluation and hopes of evaluation, need for acute rehabilitation or follow clinically and recommend further and we will discuss with the patient and sister as to plan of care and disposition. Kurtis Vazquez M.D. DR: ANGIE JOB#: [id number] CC: SANCHO
--- NOTE | 2018-11-15 13:00 | NUR ---
NURSE NOTES: PT AXOX4, CALM, RESTING ON BED. C/O OF LEFT ANKLE PAIN 6-8/10. PT WAS GIVEN PRN NORCO 10/325 ORDERED. PT STATES IT HAS HELPED WITH THE PAIN. PT SEEN BY WOUND CARE NURSE AND DRESSINGS CHANGED. PT ON BARIATRIC BED WITH P200 MATTRESS. IN NO APPARENT DISTRESS AT THIS TIME. WILL CONTINUE TO MONITOR.
--- NOTE | 2018-11-15 14:08 | NUR ---
RD ASSESSMENT & RECOMMENDATIONS SEE CARE ACTIVITY FOR COMPLETE ASSESSMENT DAILY ESTIMATED NEEDS: Needs based on Morbidly obese, cardiac 22-25kcal/IBW kcals/kg 2232-7450 total kcals 2-2.5g/kg IBW g protein/kg 104-130 g total protein per MD, on lasix NUTRITION DIAGNOSIS: * Morbid obesity R/T excessive energy intake, life style factors as evidenced by BMI>60. CURRENT DIET:Regular PO DIET RECOMMENDATIONS --> > CARDIAC + CCHO LOW FOR CALORIE CONTROL ADDITIONAL RECOMMENDATIONS: * As able, calibrate bed scale for accurate CBW/ pt on lasix * Wound healing: MVI x 1, Vit C 500mg x1, Gaurav 1pkt BID, f/up with eval * Rec check A1C given morbid obesity + mildly elev BG * Diet edu as able -
--- NOTE | 2018-11-15 14:21 | NUR ---
NURSE NOTES:WOUND CARE NOTES:Morbidly obese female whom presented on admission with pressure injury to R buttocks/R ischial region.R buttocks /R ischium noted to have multiple partial thickness shearing with two areas within base of wound that noted to have slough .Affected area R buttocks /R ischium measures (L)12cm x (W)10 cm. Full thickness wounds within base of wounds noted to have slough(Proximal)(L)0.6cm x (W)0.5cm with 90% slough. (Inferior, but in close proximity) (L)1.2cm x (W)0.9cm base of wound has 50% slough, 50% viable with surrounding shearing.R ischial area noted to have full thickness wound of which the base of wound is 75% rachel , 25% purple and fluctuant.(L)2cm x (W)6.5cm. Scattered areas of hyperpigmentation from [previous wounds noted to sacrum and L buttocks. Moisture Intertrigo noted to suprapubis and L abd folds and L groin areas. Erythema without elevation in skin temp noted to mons pubis.Pt denied burning at site. Xerosis Skin noted to both lower ext. Pt Noted to be wearing compression sleeves but declined to have compression sleeves from lower ext to be properly assessed and declined to have staff provide hygiene .Pt stated skin is hypersensitive. Stable dry eschar noted to tip of L st metatarsal. Tx.Plan.Cleanse wounds R buttocks with Saline. Apply Therahoney to wounds with slough.Apply Moisture Barrier Paste to surrounding sheared skin. Cover with Optifoam drsg. Change Daily and prn. Apply Moisture Barrier Paste to Sacrum,L buttocks/L ischium with each incontinence care. Apply Antifungal Powder to abd folds and Both groin areas each shift. Apply Betadine swab to L st metatarsal Daily. Barrier bed with APM/JAK mattress. Reposition at least every 2hours or as tolerated. Off-load heels with Pillow.
--- NOTE | 2018-11-15 14:37 | Consultation ---
History of Present Illness General Date patient seen: Nov 15, 2018 Reason for Hospitalization: Lower Extremity Injury Present Illness HPI This is a very pleasant 53 year old female with multiple medical comorbidities who is morbidly obese and mainly confined to her bed and wheelchair currently admitted for medical care and management. on admission noted to have multiple wounds requiring care. surgery called to evaluate and assist with care. patient seen, chart reviewed, patient examined. was noted to have ankle sprain recently causing her pain. currently states she is comfortable. no n/v/f/c. labs noted. Allergies: Coded Allergies: No Known Allergies (Unverified , 11/23/14) Medication History Scheduled Acetazolamide (Acetazolamide), 250 MG ORAL TWICE A DAY, (Reported) Cholecalciferol (Vitamin D3)* (Vitamin D*), 1,000 UNIT ORAL DAILY, (Reported) Clotrimazole* (Lotrimin*), 1 APPLIC TOPIC TWICE A DAY, (Reported) Fluticasone/Salmeterol (Advair 500-50 Diskus), 1 PUFF INH EVERY 12 HOURS, ( Reported) Heparin Sod (Porcine) (Heparin Sodium*), 5,000 UNITS SUBQ EVERY 12 HOURS, ( Reported) Patient History History Provided By: Patient, Medical Record, PMD Healthcare decision maker Resuscitation status Full Code Advanced Directive on File Past Medical/Surgical History Past Medical/Surgical History: (1) Morbid obesity (2) Bacteremia (3) Pleural effusion (4) Leg edema (5) Pneumonia (6) Unable to ambulate (7) Left ankle injury (8) Morbid obesity (9) Intractable pain Review of Systems Review of Symptoms General ROS: no weight loss or fever Psychological ROS: no depression or mood changes, no memory loss Ophthalmic ROS: no visual changes or eye irritation ENT ROS: no nasal congestion, hearing loss, dizziness Allergy and Immunology ROS: no allergic symptoms or urticaria Hematological and Lymphatic ROS: no swollen glands, unusual bleeding or bruising Endocrine ROS: no polyuria, polydipsia, weight changes, temperature intolerance Respiratory ROS: no cough, shortness of breath, or wheezing Cardiovascular ROS: no chest pain or dyspnea on exertion Gastrointestinal ROS: denies abdominal pain, no bright red blood in stool. Musculoskeletal ROS: no myalgias or arthralgias Neurological ROS: no TIA or stroke symptoms Dermatological ROS: no new or changing skin lesions, rashes or pruritis Physical Exam Physical Exam General appearance: alert, cooperative, no distress, appears stated age Head: Normocephalic, without obvious abnormality, atraumatic Eyes: conjunctivae/corneas clear. PERRL, EOM's intact. Fundi benign Throat: Lips, mucosa, and tongue normal. Teeth and gums normal Neck: supple, symmetrical, trachea midline, no adenopathy, thyroid: not enlarged, symmetric, no tenderness/mass/nodules, no carotid bruit and no JVD Lungs: clear to auscultation bilaterally Heart: regular rate and rhythm, S1, S2 normal, no murmur, click, rub or gallop Abdomen: soft, non-tender. Bowel sounds normal. No masses, no organomegaly Extremities: extremities normal, atraumatic, no cyanosis or edema Pulses: 2+ and symmetric Skin: Skin color, texture, turgor normal. No rashes or lesions. decubitus noted Neurologic: Grossly normal Last 24 Hour Vital Signs Date Time Temp Pulse Resp B/P (MAP) Pulse Ox O2 Delivery O2 Flow Rate FiO2 11/15/18 12:00 97.9 95 19 114/72 (86) 96 11/15/18 08:29 95 16 98 Nasal Cannula 2.0 28 11/15/18 08:28 95 16 97 Nasal Cannula 2.0 28 11/15/18 08:26 97 Nasal Cannula 2.0 28 11/15/18 08:00 98.8 97 19 120/59 (79) 97 11/15/18 04:00 97.0 95 20 101/64 (76) 95 11/15/18 00:00 100.0 98 18 112/72 (85) 97 11/14/18 21:00 Nasal Cannula 2.0 11/14/18 20:00 99.0 95 18 116/73 (87) 97 11/14/18 18:41 Nasal Cannula 2.0 11/14/18 18:23 98.1 89 18 94/73 (80) 95 11/14/18 17:20 98.6 80 15 131/77 100 Room Air 11/14/18 15:27 98.9 11/14/18 14:45 98.6 79 18 121/65 100 Room Air Intake and Output 11/14/18 11/15/18 19:00 07:00 Intake Total 0 ml Output Total 150 ml Balance 0 ml -150 ml Intake Oral 0 ml Output Urine Total 150 ml # Bowel Movements 1 Laboratory Tests Test 11/14/18 16:14 11/15/18 05:35 Urine Color Yellow Urine Appearance Clear Urine pH 8 (4.5-8.0) Urine Specific [place] 1.010 (1.005-1.035) Urine Protein 1+ (NEGATIVE) H Urine Glucose (UA) Negative (NEGATIVE) Urine Ketones 1+ (NEGATIVE) H Urine Blood 3+ (NEGATIVE) H Urine Nitrite Negative (NEGATIVE) Urine Bilirubin Negative (NEGATIVE) Urine Urobilinogen 1 MG/DL (0.0-1.0) H Urine Leukocyte Esterase 1+ (NEGATIVE) H Urine RBC 5-10 /HPF (0 - 2) H Urine WBC 0-2 /HPF (0 - 2) Urine Squamous Epithelial Cells Few /LPF (NONE/OCC) Urine Bacteria Few /HPF (NONE) White Blood Count 8.4 K/UL (4.8-10.8) Red Blood Count 4.32 M/UL (4.20-5.40) Hemoglobin 12.4 G/DL (12.0-16.0) Hematocrit 38.9 % (37.0-47.0) Mean Corpuscular Volume 90 FL (80-99) Mean Corpuscular Hemoglobin 28.8 PG (27.0-31.0) Mean Corpuscular Hemoglobin Concent 31.9 G/DL (32.0-36.0) L Red Cell Distribution Width 13.6 % (11.6-14.8) Platelet Count 102 K/UL (150-450) L Mean Platelet Volume 9.5 FL (6.5-10.1) Neutrophils (%) (Auto) 73.6 % (45.0-75.0) Lymphocytes (%) (Auto) 17.7 % (20.0-45.0) L Monocytes (%) (Auto) 6.9 % (1.0-10.0) Eosinophils (%) (Auto) 1.2 % (0.0-3.0) Basophils (%) (Auto) 0.6 % (0.0-2.0) Sodium Level 146 MMOL/L (136-145) H Potassium Level 3.2 MMOL/L (3.5-5.1) L Chloride Level 103 MMOL/L (98-107) Carbon Dioxide Level 39 MMOL/L (21-32) H Anion Gap 4 mmol/L (5-15) L Blood Urea Nitrogen 16 mg/dL (7-18) Creatinine 0.7 MG/DL (0.55-1.30) Estimat Glomerular Filtration Rate > 60 mL/min (>60) Glucose Level 128 MG/DL (74-106) H Calcium Level 9.3 MG/DL (8.5-10.1) Height (Feet): 5 Height (Inches): 3.00 Weight (Pounds): 344 Medications Current Medications Medications (Trade) Dose Ordered Sig/Hermelinda Route PRN Reason Start Time Stop Time Status Last Admin Dose Admin Acetaminophen (Tylenol) 650 mg Q4H PRN ORAL Mild Pain/Temp > 100.5 11/14/18 19:00 12/14/18 18:59 Acetaminophen/ Hydrocodone Bitart ([place] 5/325) 1 tab Q4H PRN ORAL Mild Pain (Pain Scale 1-3) 11/14/18 19:00 11/21/18 18:59 Acetaminophen/ Hydrocodone Bitart ([place] 5/325) 2 tab Q4H PRN ORAL Moderate Pain (Pain Scale 4-6) 11/14/18 19:00 11/21/18 18:59 11/15/18 13:50 Ergocalciferol (Drisdol) 50,000 intlu ONCE A WEEK ORAL 11/14/18 22:00 12/14/18 21:59 11/14/18 21:08 Furosemide (Lasix) 20 mg DAILY ORAL 11/15/18 09:00 12/15/18 08:59 11/15/18 08:32 Heparin Sodium (Porcine) (Heparin 5000 units/ml) 5,000 units EVERY 12 HOURS SUBQ 11/14/18 21:00 12/14/18 20:59 11/14/18 20:52 Lactobacillus Acidophilus (Culturelle) 1 tab DAILY ORAL 11/15/18 09:00 12/15/18 08:59 11/15/18 08:32 Pantoprazole (Protonix) 40 mg DAILY ORAL 11/15/18 09:00 12/15/18 08:59 11/15/18 08:32 Salmeterol Xinafoate/ Fluticasone (Advair 250/50 Diskus) 1 puffs BID INH 11/15/18 09:00 12/15/18 08:59 11/15/18 08:28 Sodium 1,000 ml @ 75 mls/hr [id number] IV 11/15/18 14:30 12/15/18 14:29 Assessment/Plan Problem List: (1) Decubitus skin ulcer Assessment & Plan: Morbidly obese female whom presented on admission with pressure injury to R buttocks/R ischial region.R buttocks /R ischium noted to have multiple partial thickness shearing with two areas within base of wound that noted to have slough .Affected area R buttocks /R ischium measures (L)12cm x (W)10 cm. Full thickness stage 3 wounds within base of wounds noted to have slough(Proximal)(L)0.6cm x (W)0.5cm with 90% slough. (Inferior, but in close proximity) (L)1.2cm x (W)0.9cm base of wound has 50% slough, 50% viable with surrounding shearing.R ischial area noted to have full thickness wound of which the base of wound is 75% rachel , 25% purple and fluctuant.(L)2cm x (W)6.5cm. Scattered areas of hyperpigmentation from [previous wounds noted to sacrum and L buttocks. Moisture Intertrigo noted to suprapubis and L abd folds and L groin areas. Erythema without elevation in skin temp noted to mons pubis.Pt denied burning at site. Xerosis Skin noted to both lower ext. Pt Noted to be wearing compression sleeves but declined to have compression sleeves from lower ext to be properly assessed and declined to have staff provide hygiene .Pt stated skin is hypersensitive. Stable dry eschar noted to tip of L st metatarsal. Tx.Plan. Cleanse wounds R buttocks with Saline. Apply Therahoney to wounds with slough.Apply Moisture Barrier Paste to surrounding sheared skin. Cover with Optifoam drsg. Change Daily and prn. Apply Moisture Barrier Paste to Sacrum,L buttocks/L ischium with each incontinence care. Apply Antifungal Powder to abd folds and Both groin areas each shift. Apply Betadine swab to L st metatarsal Daily. Barrier bed with APM/JAK mattress. Reposition at least every 2hours or as tolerated. Off-load heels with Pillow. ICD Codes: L89.90 - Pressure ulcer of unspecified site, unspecified stage SNOMED: 791291137 (2) Left ankle injury Assessment & Plan: plain films ordered will follow ICD Codes: S99.912A - Unspecified injury of left ankle, initial encounter SNOMED: 97687171981721707 (3) Morbid obesity ICD Codes: E66.01 - Morbid (severe) obesity due to excess calories SNOMED: 475667642 (4) Morbid obesity ICD Codes: E66.01 - Morbid (severe) obesity due to excess calories SNOMED: 646598698 (5) Bacteremia ICD Codes: R78.81 - Bacteremia SNOMED: 3692090 (6) Pleural effusion ICD Codes: J90 - Pleural effusion, not elsewhere classified SNOMED: 90464781 (7) Leg edema ICD Codes: R60.0 - Localized edema SNOMED: 634391079 (8) Pneumonia ICD Codes: J18.9 - Pneumonia, unspecified organism SNOMED: 365419070 (9) Unable to ambulate ICD Codes: R26.2 - Difficulty in walking, not elsewhere classified SNOMED: 795515517 (10) Intractable pain Assessment & Plan: pain control ICD Codes: R52 - Pain, unspecified SNOMED: 78921072 Wilton Haas Nov 15, 2018 14:37
[2018-11-15] MEDS: 1/2NS w/KCl 20mEq 1000ml 1,000 ML IV SCH (14:49)
[2018-11-15 16:00] VITALS: BP 115/74
--- NOTE | 2018-11-15 19:32 | NUR ---
NURSE NOTES: Received report from Rowdy RN and Walter RN. Patient is awake and alert x 4. Patient is resting in bed and using her iPad. Family member is currently at bedside. Patient has a new IV as of today, which is intact. Patient is receiving 2L O2 and is showing no signs of respiratory distress. Bed is in lowest position with the call light within reach. Will continue to monitor.
--- NOTE | 2018-11-15 19:33 | NUR ---
HAND-OFF: Report given to Angelo RENAE RN.
[2018-11-15 20:00] VITALS: BP 117/74
[2018-11-16] VITALS: BP 115/71
[2018-11-16 04:00] VITALS: BP 126/75
[2018-11-16] MEDS: 1/2NS w/KCl 20mEq 1000ml 1,000 ML IV SCH (04:47)
--- NOTE | 2018-11-16 05:01 | NUR ---
NURSE NOTES: Changed 1/2 NS w/KCL IV bag around 0440. Bag noted to be leaking. Another bag was available and was used instead. Sent message to pharmacy informing them.
--- NOTE | 2018-11-16 07:03 | NUR ---
HAND-OFF: Report given to MERISSA Jeff.
--- NOTE | 2018-11-16 07:05 | NUR ---
NURSE NOTES: Received patient in bed,alert and awake x4, not in acute respiratory/cardiac distress noted. Patient complains of mild pain but wants to take her pain med later. Will continue to monitor. Patient's left leg is elevated on pillow, bilateral heels are floated to off the load. On P200 mattress and beriatric bed. IV intact, no s/s of infiltration. Call light and prsonnel items i=within reach. Will continue plan of care.
[2018-11-16 08:00] VITALS: BP 106/71
[2018-11-16 08:40] LABS: BASOPHILS % (AUTO) 1.1 % (0.0-2.0); EOSINOPHILS % (AUTO) 1.8 % (0.0-3.0); HEMATOCRIT 37.9 % (37.0-47.0); MEAN CORPUSCULAR VOLUME 90 FL (80-99); MONOCYTES % (AUTO) 8.3 % (1.0-10.0); NEUTROPHILS % (AUTO) 75.9 % (45.0-75.0); PLATELET COUNT 100 K/UL (150-450); RED BLOOD COUNT 4.21 M/UL (4.20-5.40); RED CELL DISTRIBUTION WIDTH 13.7 % (11.6-14.8)
[2018-11-16] MEDS: Wixela 250/50 Inhaler - 60 dose INH SCH ×2 (08:57→19:24)
[2018-11-16] MEDS: Heparin 5000 units/ml inj SUBQ SCH ×2 (09:00→20:15)
[2018-11-16 09:04] LABS: ANION GAP 6 mmol/L (5-15); BLOOD UREA NITROGEN 16 mg/dL (7-18); CALCIUM 8.9 MG/DL (8.5-10.1); CARBON DIOXIDE 38 MMOL/L (21-32); CHLORIDE 101 MMOL/L (98-107); CREATININE 0.6 MG/DL (0.55-1.30); POTASSIUM 3.9 MMOL/L (3.5-5.1); SODIUM 145 MMOL/L (136-145)
[2018-11-16] MEDS: Lactobacillus-GG tablet ORAL SCH (09:43)
[2018-11-16] MEDS: HYDROcodone/Acetamin 5/325 tab ORAL PRN (09:44)
--- NOTE | 2018-11-16 10:02 | General Progress Note ---
Assessment/Plan Assessment/Plan: IMPRESSION: 1. Status post ankle sprain. 2. Significant arthritis, possible rheumatoid arthritis. 3. Morbid obesity. 4. Significant debility. 5. Immobile state. 6. Prior history of asthma. 7. History of hypertension. PLAN dc IV hydration pain meds heparin hospital bed bariatric commode ankle brace dc planning impression, plan, and exam edited and reviewed in detail care discussed with RN Subjective Allergies: Coded Allergies: No Known Allergies (Unverified , 11/23/14) Subjective care noted notes pain is better still with difficulty Objective Last 24 Hour Vital Signs Date Time Temp Pulse Resp B/P (MAP) Pulse Ox O2 Delivery O2 Flow Rate FiO2 11/16/18 08:59 103 20 95 Room Air 21 11/16/18 08:58 102 20 95 Room Air 21 11/16/18 08:00 98.0 103 16 106/71 (83) 95 11/16/18 07:20 96 Nasal Cannula 2.0 28 11/16/18 04:00 98.1 98 16 126/75 (92) 96 11/16/18 00:00 98.0 93 16 115/71 (86) 97 11/15/18 21:00 Nasal Cannula 2.0 Room Air 11/15/18 20:00 90 18 95 Room Air 21 11/15/18 20:00 98.0 85 18 117/74 (88) 98 11/15/18 20:00 96 18 97 Room Air 21 11/15/18 20:00 95 Room Air 21 11/15/18 16:00 97.9 68 19 115/74 (88) 99 11/15/18 12:00 97.9 95 19 114/72 (86) 96 Intake and Output 11/15/18 11/16/18 18:59 06:59 Intake Total 480 ml 675 ml Output Total 650 ml Balance 480 ml 25 ml Intake Oral 480 ml IV Total 675 ml Output Urine Total 650 ml # Bowel Movements 1 Laboratory Tests 11/16/18 07:42: White Blood Count 10.0, Red Blood Count 4.21, Hemoglobin 12.0, Hematocrit 37.9, Mean Corpuscular Volume 90, Mean Corpuscular Hemoglobin 28.6, Mean Corpuscular Hemoglobin Concent 31.8L, Red Cell Distribution Width 13.7, Platelet Count 100L , Mean Platelet Volume 9.4, Neutrophils (%) (Auto) 75.9H, Lymphocytes (%) (Auto ) 13.0L, Monocytes (%) (Auto) 8.3, Eosinophils (%) (Auto) 1.8, Basophils (%) ( Auto) 1.1, Sodium Level 145, Potassium Level 3.9, Chloride Level 101, Carbon Dioxide Level 38H, Anion Gap 6, Blood Urea Nitrogen 16, Creatinine 0.6, Estimat Glomerular Filtration Rate > 60, Glucose Level 118H, Calcium Level 8.9 Height (Feet): 5 Height (Inches): 3.00 Weight (Pounds): 241 Objective WDWN NAD clear breath sounds bilaterally without rhonchi or wheeze [id number] without MRG NABS nontender no HSM no CCE nonfocal obese difficulty with change in position pain with ROM of left ankle Kurtis Vazquez MD Nov 16, 2018 10:02
--- NOTE | 2018-11-16 11:00 | NUR ---
NURSE NOTES: Case management will order ankle brace.
[2018-11-16 12:00] VITALS: BP 106/55
--- NOTE | 2018-11-16 13:41 | NUR ---
TEXTILE COLORIST DYER NOTES SPOKE WITH PT AT BEDSIDE, PT HAS AN BARIATRIC BED AT HOME, PT STATED SHE'S BEEN TRYING TO GET IT REPLACED FROM [employer] THE DISTRIBUTOR. WILL FOLLOW UP WITH [employer] FOR REPLACEMENT. ORDER FAXED TO [facility] FOR ANKLE BRACE L19 L6 TO BE DELIVERED TODAY. ORDER FOR BEDSIDE COMMODE FAXED TO [facility] TO BE DELIVERED TO PT'S HOUSE. PT MADE AWARE AND WILL NOTIFY HER SISTER OF DELIVERY. Addendum: 11/16/18 at 1612 by ALEJANDRO SCHMIDT RN RN SPOKE WITH MARIANN FROM [facility], PER MEDICARE GUIDELINES BRACE CAN ONLY BE DELIVERED TO THE HOSPITAL ON DAY OF DC. WILL NOTIFY [facility] WHEN DC ORDER IS IN PLACE. PT AND NURSE NOTIFIED. PAGED.
--- NOTE | 2018-11-16 14:04 | NUR ---
*-* DISCHARGE PLANNING *-* PATIENT HAS BEEN REFERRED TO: [facility] F: [phone] P:[phone]
--- NOTE | 2018-11-16 15:45 | Surgery Progress Note ---
Surgery Progress Note Subjective Additional Comments no acute events. doing well. states she is okay but at times uncomfortable. no n/v/f/c. states she has not been ambulatory in some time. and barely uses wheelchair Objective Last 24 Hour Vital Signs Date Time Temp Pulse Resp B/P (MAP) Pulse Ox O2 Delivery O2 Flow Rate FiO2 11/16/18 12:00 98.2 100 19 106/55 (72) 94 11/16/18 09:00 Nasal Cannula 2.0 Room Air 11/16/18 08:59 103 20 95 Room Air 21 11/16/18 08:58 102 20 95 Room Air 21 11/16/18 08:00 98.0 103 16 106/71 (83) 95 11/16/18 07:20 96 Nasal Cannula 2.0 28 11/16/18 04:00 98.1 98 16 126/75 (92) 96 11/16/18 00:00 98.0 93 16 115/71 (86) 97 11/15/18 21:00 Nasal Cannula 2.0 Room Air 11/15/18 20:00 90 18 95 Room Air 21 11/15/18 20:00 98.0 85 18 117/74 (88) 98 11/15/18 20:00 96 18 97 Room Air 21 11/15/18 20:00 95 Room Air 21 11/15/18 16:00 97.9 68 19 115/74 (88) 99 I&O Intake and Output 11/15/18 11/16/18 19:00 07:00 Intake Total 555 ml 600 ml Output Total 650 ml Balance 555 ml -50 ml Intake Oral 480 ml IV Total 75 ml 600 ml Output Urine Total 650 ml # Bowel Movements 1 Dressing: dry Wound: clean Cardiovascular: RSR Respiratory: clear Abdomen: soft, flat, non-tender, present bowel sounds Extremities: no tenderness, no cyanosis Laboratory Tests Test 11/16/18 07:42 White Blood Count 10.0 K/UL (4.8-10.8) Red Blood Count 4.21 M/UL (4.20-5.40) Hemoglobin 12.0 G/DL (12.0-16.0) Hematocrit 37.9 % (37.0-47.0) Mean Corpuscular Volume 90 FL (80-99) Mean Corpuscular Hemoglobin 28.6 PG (27.0-31.0) Mean Corpuscular Hemoglobin Concent 31.8 G/DL (32.0-36.0) L Red Cell Distribution Width 13.7 % (11.6-14.8) Platelet Count 100 K/UL (150-450) L Mean Platelet Volume 9.4 FL (6.5-10.1) Neutrophils (%) (Auto) 75.9 % (45.0-75.0) H Lymphocytes (%) (Auto) 13.0 % (20.0-45.0) L Monocytes (%) (Auto) 8.3 % (1.0-10.0) Eosinophils (%) (Auto) 1.8 % (0.0-3.0) Basophils (%) (Auto) 1.1 % (0.0-2.0) Sodium Level 145 MMOL/L (136-145) Potassium Level 3.9 MMOL/L (3.5-5.1) Chloride Level 101 MMOL/L (98-107) Carbon Dioxide Level 38 MMOL/L (21-32) H Anion Gap 6 mmol/L (5-15) Blood Urea Nitrogen 16 mg/dL (7-18) Creatinine 0.6 MG/DL (0.55-1.30) Estimat Glomerular Filtration Rate > 60 mL/min (>60) Glucose Level 118 MG/DL (74-106) H Calcium Level 8.9 MG/DL (8.5-10.1) Plan Problems: (1) Decubitus skin ulcer Assessment & Plan: Morbidly obese female whom presented on admission with pressure injury to R buttocks/R ischial region.R buttocks /R ischium noted to have multiple partial thickness shearing with two areas within base of wound that noted to have slough .Affected area R buttocks /R ischium measures (L)12cm x (W)10 cm. Full thickness stage 3 wounds within base of wounds noted to have slough(Proximal)(L)0.6cm x (W)0.5cm with 90% slough. (Inferior, but in close proximity) (L)1.2cm x (W)0.9cm base of wound has 50% slough, 50% viable with surrounding shearing.R ischial area noted to have full thickness wound of which the base of wound is 75% rachel , 25% purple and fluctuant.(L)2cm x (W)6.5cm. Scattered areas of hyperpigmentation from [previous wounds noted to sacrum and L buttocks. Moisture Intertrigo noted to suprapubis and L abd folds and L groin areas. Erythema without elevation in skin temp noted to mons pubis.Pt denied burning at site. Xerosis Skin noted to both lower ext. Pt Noted to be wearing compression sleeves but declined to have compression sleeves from lower ext to be properly assessed and declined to have staff provide hygiene .Pt stated skin is hypersensitive. Stable dry eschar noted to tip of L st metatarsal. Tx.Plan. Cleanse wounds R buttocks with Saline. Apply Therahoney to wounds with slough.Apply Moisture Barrier Paste to surrounding sheared skin. Cover with Optifoam drsg. Change Daily and prn. Apply Moisture Barrier Paste to Sacrum,L buttocks/L ischium with each incontinence care. Apply Antifungal Powder to abd folds and Both groin areas each shift. Apply Betadine swab to L st metatarsal Daily. Barrier bed with APM/JAK mattress. Reposition at least every 2hours or as tolerated. Off-load heels with Pillow. DAILY ESTIMATED NEEDS: Needs based on Morbidly obese, cardiac 22-25kcal/IBW kcals/kg 1779-4767 total kcals 2-2.5g/kg IBW g protein/kg 104-130 g total protein per MD, on lasix NUTRITION DIAGNOSIS: * Morbid obesity R/T excessive energy intake, life style factors as evidenced by BMI>60. CURRENT DIET:Regular PO DIET RECOMMENDATIONS --> > CARDIAC + CCHO LOW FOR CALORIE CONTROL ADDITIONAL RECOMMENDATIONS: * As able, calibrate bed scale for accurate CBW/ pt on lasix * Wound healing: MVI x 1, Vit C 500mg x1, Gaurav 1pkt BID, f/up with eval * Rec check A1C given morbid obesity + mildly elev BG * Diet edu as able (2) Left ankle injury Assessment & Plan: plain films ordered will follow (3) Morbid obesity (4) Morbid obesity (5) Bacteremia (6) Pleural effusion (7) Leg edema (8) Pneumonia (9) Unable to ambulate (10) Intractable pain Assessment & Plan: pain control Wilton Haas Nov 16, 2018 15:45
[2018-11-16 16:00] VITALS: BP 104/65
--- NOTE | 2018-11-16 17:00 | NUR ---
NURSE NOTES: Dressing change done on sacral, no new skin issue. given proper skin care.
[2018-11-16 20:00] VITALS: BP 111/67
--- NOTE | 2018-11-16 20:03 | NUR ---
HAND-OFF: Report given to Cece.
--- NOTE | 2018-11-16 20:13 | NUR ---
NURSE NOTES: Received report from Bisi Chávez RN. Patient is awake lying semi-cochran's; resting comfortably. No signs of acute distress noted; complains of some pain, but refuses medication at this time. On 2L nasal cannula. Sister at bedside. AOx4; able to make needs known. Checked IV site; patent and flushed. No erythema, bleeding, or infiltration noted. On low air loss mattress for appropriate wound management. Bed at lowest position, brakes on, siderails up x3. Call light within reach. Will continue to monitor.
[2018-11-17] VITALS: BP 114/77
--- NOTE | 2018-11-17 03:48 | NUR ---
NURSE NOTES: Patient is asleep lying semi-cochran's; resting comfortably. No signs of acute distress or pain noted at this time. Armendariz catheter draining well to gravity.
[2018-11-17 04:00] VITALS: BP 104/64
--- NOTE | 2018-11-17 07:35 | NUR ---
NURSE NOTES: Patient received resting in bed, alert and oriented. Nasal cannula on at 2L/min. Denies pain or SOB at this time. Armendariz catheter patent, intact and draining. Bed locked in lowest position, call light placed within reach. Will continue to monitor.
--- NOTE | 2018-11-17 07:58 | NUR ---
HAND-OFF: Report given to MERISSA Alonso. Patient is awake lying semi-cochran's; resting comfortably. On 2L nasal cannula. Armendariz catheter draining well to gravity. In stable condition.
[2018-11-17 08:00] VITALS: BP 119/69
--- NOTE | 2018-11-17 08:32 | General Progress Note ---
Assessment/Plan Assessment/Plan: IMPRESSION: 1. Status post ankle sprain. 2. Significant arthritis, possible rheumatoid arthritis. 3. Morbid obesity. 4. Significant debility. 5. Immobile state. 6. Prior history of asthma. 7. History of hypertension. PLAN hospital bed bariatric commode ankle brace dc planning on [facility] on dc impression, plan, and exam edited and reviewed in detail care discussed with RN Subjective Allergies: Coded Allergies: No Known Allergies (Unverified , 11/23/14) Subjective care noted CASE MANAGEMENT appreciated stable Objective Last 24 Hour Vital Signs Date Time Temp Pulse Resp B/P (MAP) Pulse Ox O2 Delivery O2 Flow Rate FiO2 11/17/18 07:25 98 Nasal Cannula 2.0 28 11/17/18 04:00 99.1 100 18 104/64 (77) 98 11/17/18 00:00 99.5 102 18 114/77 (89) 99 11/16/18 21:00 Nasal Cannula 2.0 11/16/18 20:00 98.6 89 20 111/67 (82) 95 11/16/18 19:25 100 20 95 Nasal Cannula 2.0 28 11/16/18 19:23 100 20 95 Nasal Cannula 2.0 28 11/16/18 19:23 95 Nasal Cannula 2.0 28 11/16/18 16:00 98.2 97 19 104/65 (78) 94 11/16/18 12:00 98.2 100 19 106/55 (72) 94 11/16/18 09:00 Nasal Cannula 2.0 Room Air 11/16/18 08:59 103 20 95 Room Air 21 11/16/18 08:58 102 20 95 Room Air 21 Intake and Output 11/16/18 11/17/18 19:00 07:00 Intake Total 1220 ml 480 ml Output Total 900 ml Balance 1220 ml -420 ml Intake Oral 1220 ml 480 ml Output Urine Total 900 ml Height (Feet): 5 Height (Inches): 3.00 Weight (Pounds): 241 Objective WDWN NAD clear breath sounds bilaterally without rhonchi or wheeze [id number] without MRG NABS nontender no HSM no CCE nonfocal obese difficulty with change in position pain with ROM of left ankle Kurtis Vazquez MD Nov 17, 2018 08:32
[2018-11-17] MEDS: Lactobacillus-GG tablet ORAL SCH (08:45)
[2018-11-17] MEDS: Heparin 5000 units/ml inj SUBQ SCH ×2 (08:46→21:00)
[2018-11-17] MEDS: HYDROcodone/Acetamin 5/325 tab ORAL PRN ×2 (08:46→21:08)
[2018-11-17] MEDS: Wixela 250/50 Inhaler - 60 dose INH SCH ×2 (09:11→18:00)
--- NOTE | 2018-11-17 11:47 | NUR ---
[facility] NURSE SI:LEFT ANKLE SPRAIN VS: BP 104/64, P 95, T 99.1, RR 19, SPO2 95 CO2 38, Plt. Count 100 IS:ADVAIR 1PUFF HHN [place] 5/325 2tab PROTONIX 40mg MED/SURG STATUS
[2018-11-17 11:56] VITALS: BP 100/63
[2018-11-17] MEDS ORDERED: ACETAMINOPHEN325 M1 ORAL (13:47)
[2018-11-17] MEDS ORDERED: ASCORBIC ACID500 MG ORAL (13:48)
[2018-11-17] MEDS ORDERED: ASPIRIN EC81 MG ORAL (13:49)
[2018-11-17] MEDS ORDERED: LIPITOR10 MG ORAL (13:49)
[2018-11-17] MEDS ORDERED: VITAMIN D1000 UNI1 ORAL (13:50)
[2018-11-17] MEDS ORDERED: NOVOLOG100 UNIT/5 SUBQ (13:51)
[2018-11-17] MEDS ORDERED: MILK OF MA400 MG/51 ORAL (13:51)
[2018-11-17] MEDS ORDERED: MIRTAZAPINE7.5 MG ORAL (13:52)
[2018-11-17] MEDS ORDERED: MULTIVITAMINS1 EAC8 ORAL (13:52)
[2018-11-17] MEDS ORDERED: ZINC SULFATE220 M1 ORAL (13:55)
[2018-11-17 16:00] VITALS: BP 96/66
--- NOTE | 2018-11-17 17:30 | NUR ---
NURSE NOTES: RN received pt in stable condition from MERISSA Hernandez. No s/s of acute distress or SOB. Bed in low, locked position, call light within reach. Pt A&O x 4; able to verbalize needs. Will continue plan of care.
--- NOTE | 2018-11-17 18:00 | NUR ---
NURSE NOTES: RN couldn't administer Advair; not available in cassette. Pharmacy notified, stated they would resolve. Evening RN aware.
--- NOTE | 2018-11-17 19:25 | NUR ---
HAND-OFF: Report given to MERISSA Cunha.
--- NOTE | 2018-11-17 19:26 | NUR ---
NURSE NOTES: RN received pt in stable condition. No s/s of acute distress or SOB. Bed in low, locked position, call light within reach. Pt A&O x 4; able to verbalize needs. Will continue plan of care.
[2018-11-17 20:00] VITALS: BP 115/65
--- NOTE | 2018-11-17 20:00 | NUR ---
NURSE NOTES: Educated patient on importance of relieving pressure each hour to prevent deterioration on sacral/coccyx area. Pt has trapeze above her and I had her demonstrate use. Pt is able to use trapeze, reinforcement given and pt verbalized understanding of the importance. Will continue to reinforce
[2018-11-18] VITALS: BP 113/76
--- NOTE | 2018-11-18 00:15 | Surgery Progress Note ---
Surgery Progress Note Objective Last 24 Hour Vital Signs Date Time Temp Pulse Resp B/P (MAP) Pulse Ox O2 Delivery O2 Flow Rate FiO2 11/17/18 21:38 98.5 11/17/18 21:17 Nasal Cannula 11/17/18 21:16 Nasal Cannula 11/17/18 20:06 96 Nasal Cannula 2.0 28 11/17/18 20:00 98.2 96 20 115/65 (82) 97 11/17/18 16:00 98.5 93 18 96/66 (76) 95 11/17/18 11:56 99.3 94 19 100/63 (75) 94 11/17/18 09:12 92 18 97 Nasal Cannula 2.0 28 11/17/18 09:11 92 18 95 Nasal Cannula 2.0 28 11/17/18 09:00 Nasal Cannula 2.0 11/17/18 08:00 98.4 108 19 119/69 (86) 95 11/17/18 07:25 98 Nasal Cannula 2.0 28 11/17/18 04:00 99.1 100 18 104/64 (77) 98 I&O Intake and Output 11/17/18 11/18/18 19:00 07:00 Intake Total 1280 ml Output Total 700 ml Balance 580 ml Intake Oral 1280 ml Output Urine Total 700 ml Dressing: dry Wound: clean Drains: none Cardiovascular: RSR Respiratory: clear Abdomen: soft, flat, non-tender, present bowel sounds Extremities: edema, no tenderness, no cyanosis Plan Problems: (1) Decubitus skin ulcer Assessment & Plan: Morbidly obese female whom presented on admission with pressure injury to R buttocks/R ischial region.R buttocks /R ischium noted to have multiple partial thickness shearing with two areas within base of wound that noted to have slough .Affected area R buttocks /R ischium measures (L)12cm x (W)10 cm. Full thickness stage 3 wounds within base of wounds noted to have slough(Proximal)(L)0.6cm x (W)0.5cm with 90% slough. (Inferior, but in close proximity) (L)1.2cm x (W)0.9cm base of wound has 50% slough, 50% viable with surrounding shearing.R ischial area noted to have full thickness wound of which the base of wound is 75% rachel , 25% purple and fluctuant.(L)2cm x (W)6.5cm. Scattered areas of hyperpigmentation from [previous wounds noted to sacrum and L buttocks. Moisture Intertrigo noted to suprapubis and L abd folds and L groin areas. Erythema without elevation in skin temp noted to mons pubis.Pt denied burning at site. Xerosis Skin noted to both lower ext. Pt Noted to be wearing compression sleeves but declined to have compression sleeves from lower ext to be properly assessed and declined to have staff provide hygiene .Pt stated skin is hypersensitive. Stable dry eschar noted to tip of L st metatarsal. Tx.Plan. Cleanse wounds R buttocks with Saline. Apply Therahoney to wounds with slough.Apply Moisture Barrier Paste to surrounding sheared skin. Cover with Optifoam drsg. Change Daily and prn. Apply Moisture Barrier Paste to Sacrum,L buttocks/L ischium with each incontinence care. Apply Antifungal Powder to abd folds and Both groin areas each shift. Apply Betadine swab to L st metatarsal Daily. Barrier bed with APM/JAK mattress. Reposition at least every 2hours or as tolerated. Off-load heels with Pillow. DAILY ESTIMATED NEEDS: Needs based on Morbidly obese, cardiac 22-25kcal/IBW kcals/kg 9361-1902 total kcals 2-2.5g/kg IBW g protein/kg 104-130 g total protein per MD, on lasix NUTRITION DIAGNOSIS: * Morbid obesity R/T excessive energy intake, life style factors as evidenced by BMI>60. CURRENT DIET:Regular PO DIET RECOMMENDATIONS --> > CARDIAC + CCHO LOW FOR CALORIE CONTROL ADDITIONAL RECOMMENDATIONS: * As able, calibrate bed scale for accurate CBW/ pt on lasix * Wound healing: MVI x 1, Vit C 500mg x1, Gaurav 1pkt BID, f/up with eval * Rec check A1C given morbid obesity + mildly elev BG * Diet edu as able (2) Left ankle injury Assessment & Plan: plain films ordered will follow (3) Morbid obesity (4) Morbid obesity (5) Bacteremia (6) Pleural effusion (7) Leg edema (8) Pneumonia (9) Unable to ambulate (10) Intractable pain Assessment & Plan: pain control Wilton Haas Nov 18, 2018 00:15
[2018-11-18 04:00] VITALS: BP 133/83
--- NOTE | 2018-11-18 07:15 | NUR ---
HAND-OFF: Report given to MERISSA Alonso.
--- NOTE | 2018-11-18 07:26 | NUR ---
NURSE NOTES: Patient received resting in bed, eating breakfast. Alert and oriented, bedbound. Breathing with nasal cannula at 2L/min. Denies SOB or pain at this time. Armendariz catheter patent and intact. IV site on left thumb observed. Call light placed within reach. Will continue to monitor.
[2018-11-18 08:00] VITALS: BP 114/77
--- NOTE | 2018-11-18 08:57 | General Progress Note ---
Assessment/Plan Assessment/Plan: IMPRESSION: 1. Status post ankle sprain. 2. Significant arthritis, possible rheumatoid arthritis. 3. Morbid obesity. 4. Significant debility. 5. Immobile state. 6. Prior history of asthma. 7. History of hypertension. PLAN hospital bed bariatric commode ankle brace dc planning on [facility] on dc stable for dc impression, plan, and exam edited and reviewed in detail care discussed with RN Subjective Allergies: Coded Allergies: No Known Allergies (Unverified , 11/23/14) Subjective care noted CASE MANAGEMENT appreciated stable Objective Last 24 Hour Vital Signs Date Time Temp Pulse Resp B/P (MAP) Pulse Ox O2 Delivery O2 Flow Rate FiO2 11/18/18 08:38 98 Nasal Cannula 2.0 28 11/18/18 04:00 98.6 102 20 133/83 (100) 96 11/18/18 00:00 98.3 106 20 113/76 (88) 96 11/17/18 21:38 98.5 11/17/18 21:17 Nasal Cannula 11/17/18 21:16 Nasal Cannula 11/17/18 21:00 Nasal Cannula 2.0 Nasal Cannula 2.0 11/17/18 20:06 96 Nasal Cannula 2.0 28 11/17/18 20:00 98.2 96 20 115/65 (82) 97 11/17/18 16:00 98.5 93 18 96/66 (76) 95 11/17/18 11:56 99.3 94 19 100/63 (75) 94 11/17/18 09:12 92 18 97 Nasal Cannula 2.0 28 11/17/18 09:11 92 18 95 Nasal Cannula 2.0 28 11/17/18 09:00 Nasal Cannula 2.0 Intake and Output 11/17/18 11/18/18 19:00 07:00 Intake Total 1280 ml Output Total 700 ml 450 ml Balance 580 ml -450 ml Intake Oral 1280 ml Output Urine Total 700 ml 450 ml Height (Feet): 5 Height (Inches): 3.00 Weight (Pounds): 241 Objective WDWN NAD clear breath sounds bilaterally without rhonchi or wheeze [id number] without MRG NABS nontender no HSM no CCE nonfocal obese difficulty with change in position pain with ROM of left ankle Kurtis Vazquez MD Nov 18, 2018 08:57
[2018-11-18] MEDS: Heparin 5000 units/ml inj SUBQ SCH ×2 (09:00→21:00)
[2018-11-18] MEDS: Lactobacillus-GG tablet ORAL SCH (09:05)
[2018-11-18] MEDS: HYDROcodone/Acetamin 5/325 tab ORAL PRN (09:12)
[2018-11-18] MEDS: Wixela 250/50 Inhaler - 60 dose INH SCH ×2 (10:11→20:38)
[2018-11-18 12:00] VITALS: BP 111/64
--- NOTE | 2018-11-18 14:37 | NUR ---
DISCHARGE PLANNING PROGRESSIVE [facility] ACCEPTED PATIENT AND WILL ASSUME CARE WHEN PATIENT IS DISCHARGE. FAXED OVER PATIENTS INFORMATION AND ORDER FOR BEDSIDE COMMODE TO [facility]. NO ONE IS ANSWERING THE PHONES x5 CALLS. WILL CONTINUE TRYING. Addendum: 11/18/18 at 1647 by Juanita Mcdonnell LVN FAXED OVER PATIENTS INFORMATION AND ORDER FOR BEDSIDE COMMODE TO [facility] . THEY WILL KNOW IF PATIENT IS ILLEGIBLE WEDNESDAY. WILL FOLLOW UP ON WEDNESDAY. Addendum: 11/18/18 at 1706 by Juanita Mcdonnell LVN [facility] WILL CLUB FORMER AT 1900 AND TAKE TO HOME RESIDENCE [address] [place] [id number]. SISTER MI CARR WILL BE AT HOME TO RECEIVE PATIENT.
--- NOTE | 2018-11-18 15:38 | Surgery Progress Note ---
Surgery Progress Note Subjective Additional Comments no acute events. comfortable. stable. exam unchanged. resting comfortable in bariatric bed turning when possible Objective Last 24 Hour Vital Signs Date Time Temp Pulse Resp B/P (MAP) Pulse Ox O2 Delivery O2 Flow Rate FiO2 11/18/18 12:00 98.5 93 20 111/64 (80) 96 11/18/18 10:12 97 18 95 Nasal Cannula 2.0 28 11/18/18 10:12 97 18 95 Room Air 21 11/18/18 09:00 Nasal Cannula 2.0 Nasal Cannula 2.0 11/18/18 08:38 98 Nasal Cannula 2.0 28 11/18/18 08:00 99.6 115 20 114/77 (89) 95 11/18/18 04:00 98.6 102 20 133/83 (100) 96 11/18/18 00:00 98.3 106 20 113/76 (88) 96 11/17/18 21:38 98.5 11/17/18 21:17 Nasal Cannula 11/17/18 21:16 Nasal Cannula 11/17/18 21:00 Nasal Cannula 2.0 Nasal Cannula 2.0 11/17/18 20:06 96 Nasal Cannula 2.0 28 11/17/18 20:00 98.2 96 20 115/65 (82) 97 11/17/18 16:00 98.5 93 18 96/66 (76) 95 I&O Intake and Output 11/17/18 11/18/18 18:59 06:59 Intake Total 1280 ml Output Total 700 ml 450 ml Balance 580 ml -450 ml Intake Oral 1280 ml Output Urine Total 700 ml 450 ml Plan Problems: (1) Decubitus skin ulcer Assessment & Plan: Morbidly obese female whom presented on admission with pressure injury to R buttocks/R ischial region.R buttocks /R ischium noted to have multiple partial thickness shearing with two areas within base of wound that noted to have slough .Affected area R buttocks /R ischium measures (L)12cm x (W)10 cm. Full thickness stage 3 wounds within base of wounds noted to have slough(Proximal)(L)0.6cm x (W)0.5cm with 90% slough. (Inferior, but in close proximity) (L)1.2cm x (W)0.9cm base of wound has 50% slough, 50% viable with surrounding shearing.R ischial area noted to have full thickness wound of which the base of wound is 75% rachel , 25% purple and fluctuant.(L)2cm x (W)6.5cm. Scattered areas of hyperpigmentation from [previous wounds noted to sacrum and L buttocks. Moisture Intertrigo noted to suprapubis and L abd folds and L groin areas. Erythema without elevation in skin temp noted to mons pubis.Pt denied burning at site. Xerosis Skin noted to both lower ext. Pt Noted to be wearing compression sleeves but declined to have compression sleeves from lower ext to be properly assessed and declined to have staff provide hygiene .Pt stated skin is hypersensitive. Stable dry eschar noted to tip of L st metatarsal. Tx.Plan. Cleanse wounds R buttocks with Saline. Apply Therahoney to wounds with slough.Apply Moisture Barrier Paste to surrounding sheared skin. Cover with Optifoam drsg. Change Daily and prn. Apply Moisture Barrier Paste to Sacrum,L buttocks/L ischium with each incontinence care. Apply Antifungal Powder to abd folds and Both groin areas each shift. Apply Betadine swab to L st metatarsal Daily. Barrier bed with APM/JAK mattress. Reposition at least every 2hours or as tolerated. Off-load heels with Pillow. DAILY ESTIMATED NEEDS: Needs based on Morbidly obese, cardiac 22-25kcal/IBW kcals/kg 0060-8046 total kcals 2-2.5g/kg IBW g protein/kg 104-130 g total protein per MD, on lasix NUTRITION DIAGNOSIS: * Morbid obesity R/T excessive energy intake, life style factors as evidenced by BMI>60. CURRENT DIET:Regular PO DIET RECOMMENDATIONS --> > CARDIAC + CCHO LOW FOR CALORIE CONTROL ADDITIONAL RECOMMENDATIONS: * As able, calibrate bed scale for accurate CBW/ pt on lasix * Wound healing: MVI x 1, Vit C 500mg x1, Gaurav 1pkt BID, f/up with eval * Rec check A1C given morbid obesity + mildly elev BG * Diet edu as able (2) Left ankle injury Assessment & Plan: plain films noted and stable likely sprain improving now will follow (3) Morbid obesity (4) Morbid obesity (5) Bacteremia (6) Pleural effusion (7) Leg edema (8) Pneumonia (9) Unable to ambulate (10) Intractable pain Assessment & Plan: pain control Wilton Haas Nov 18, 2018 15:38
[2018-11-18 16:00] VITALS: BP 102/62
[2018-11-18] MEDS ORDERED: NORCO 5-325 TA1 EACH ORAL (18:40)
--- NOTE | 2018-11-18 19:30 | NUR ---
NURSE NOTES: RECEIVED PATIENT LYING IN BED, AWAKE, ALERT/ORIENTED X4, VERBALLY RESPONSIVE, NOTED WITH GENERALIZED PAIN/3/10/ACHY. NO SIGNS AND SYMPTOMS OF ACUTE CARDIO RESPIRATORY DISTRESS/SHORTNESS OF BREATH, DENIES CHEST PAIN. ABDOMEN OBESE, AUDIBLE BOWEL SOUNDS, PILLOW CASE UNDER ABDOMINAL FOLD, NO REPORT OF N/V/D. GARCIA CATHETER DC'D PER MD ORDER - IV DC'D TO LEFT HAND, TOLERATED WELL, DRY DRESSING APPLIED AND SECURED WITH TAPE. SIDE RAILS UP X3/BED IN LOWEST POSITION FOR SAFETY, ENCOURAGED PATIENT TO UTILIZE CALL LIGHT FOR ASSISTANCE, VERBALIZED UNDERSTANDING. DISCHARGE HOME TONIGHT, AMBULANCE ETA 1HOUR, PATIENT MADE AWARE.
--- NOTE | 2018-11-18 19:48 | NUR ---
HAND-OFF: Report given to Jessy BACK.
[2018-11-18 20:00] VITALS: BP 118/65
--- NOTE | 2018-11-21 11:59 | Discharge Summary ---
Discharge Summary Discharge Summary _ DATE OF ADMISSION: 11/14/2018 DATE OF DISCHARGE: 11/18/2018 DISCHARGED BY: Dr. Vazquez REASON FOR ADMISSION: 53 years old female with past medical history of obesity , asthma, significant arthritis, possible rheumatoid arthritis, vitamin D deficiency, asthma, prior history of respiratory failure and bacteremia, bedbound , presented to the emergency room for evaluation. Patient apparently was recently diagnosed with rheumatoid arthritis. Patient resides at home with a her sister being a caregiver. Patient ambulates by means of wheelchair. She can walk few steps only. Patient was getting ready to appointment, when she slipped and fell, and as a result twisted her left ankle. Patient complained of left ankle pain. Patient also reported severe chronic pain. X-ray of the left ankle revealed no acute bony injury. Osteoporosis noted. X-ray of the left tibia and fibula demonstrated degenerative changes, but no definite acute bony trauma. Vital signs were stable. Laboratory work-up revealed leukocytosis WBC 15.6, stable hemoglobin and hematocrit. Platelets 150. Potassium 5.3. Stable renal parameters. Glucose 136. Patient subsequently admitted for further management CONSULTANTS: Surgery Dr. Haas [facility] COURSE: Patient admitted to medical surgical floor. Supportive care provided. Antibiotics were hold. Fall precaution maintained. Patient was working with physical therapy. Ankle brace provided. Bariatric commode provided. Pain management was addressed as needed. Bowel regimen instituted. Leukocytosis resolved next the next day, likely was reactive, no fevers. Supplemental oxygen provided as needed to keep pulse oximetry above 92%. Patient continue with routine Advair inhaler. DVT and GI prophylaxis provided. Patient was on maintenance dose of Lasix with close monitoring of volumes and cardiorenal parameters. Renal parameters remained stable. Hyperkalemia resolved. Electrolytes corrected as needed. Surgeon seen the patient for stage III pressure ulcer right buttock/ischium , present on admission . Wound care provided as per surgeon recommendation. Home health was arranged prior to discharge Patient was stable for discharge. FINAL DIAGNOSES: Left ankle sprain Significant arthritis , possible rheumatoid arthritis Pressure ulcer stage III right buttock/ ischium, /present on admission Morbid obesity History of hypertension History of asthma Significant debility Immobile state DISCHARGE MEDICATIONS: See Medication Reconciliation list. DISCHARGE INSTRUCTIONS: Patient was discharged home with home health services. Follow up with primary care provider in one week. I have been assigned to dictate discharge summary for this account. I was not involved in the patient's management. Cecille Bradshaw NP Nov 21, 2018 11:59
== END 2018-11-18 23:55 | disposition home or self-care (01) | DRG 562 ==
LOC: EDBD 10:37 → EMR 11:15 → EDBEDREQ 14:50 → 4E 15:14 → EDBEDREQ 17:18 → 4E 11-15 02:00
DX: S93.402A Sprain of unspecified ligament of left ankle, initial encounter (principal); L89.313 Pressure ulcer of right buttock, stage 3; Z68.44 Body mass index [BMI] 60.0-69.9, adult; W01.0XXA Fall on same level from slipping, tripping and stumbling without subsequent striking against object, initial encounter; Y92.009 Unspecified place in unspecified non-institutional (private) residence as the place of occurrence of the external cause; M06.9 Rheumatoid arthritis, unspecified; E66.01 Morbid (severe) obesity due to excess calories; Z74.01 Bed confinement status; J45.909 Unspecified asthma, uncomplicated
CPT/HCPCS: 36415; 80048; 80053; 81003; 82248; 85007; 85025; 94640; 96374; 99285